=== PATIENT | female | born 1935 | race Caucasian/White ===

== ENCOUNTER → 2021-02-01 10:33 | Outpatient (BNVA) | payer MEDICARE, OTHER, SELFPAY | PROVIDERS: PCP Internal Medicine; Referring Provider Internal Medicine; Visit Provider Internal Medicine Cardiovascular Disease | DX: G45.9 Transient cerebral ischemic attack, unspecified (principal); I10 Essential (primary) hypertension; Z79.899 Other long term (current) drug therapy | CPT/HCPCS: 99202 ==

== ENCOUNTER 2021-02-07 10:31 | Outpatient (REF) | payer MEDICARE, OTHER, SELFPAY ==
--- NOTE | ~2021-02-07 | FL_ITS ---
EXAMINATION: FL BARIUM SWALLOW CLINICAL INFORMATION: Dysphagia. COMPARISON: None TECHNIQUE: Barium swallow examination is performed using fluoroscopic evaluation in addition to multiple fluoroscopic spot views. The patient is imaged both upright and prone and using both thick and thin sulfate along with effervescent granules. Fluoroscopy time: 1.5 minutes DAP: 5.394 Gycm2 Images: 39 FINDINGS: Following oral administration of thin barium and barium-coated turkey, there is slow propagation of bolus from the oral cavity through the pharynx into the upper esophagus. There is more slower progress of bolus into the mid and distal esophagus. There is extensive tertiary peristalsis seen in the mid and distal esophagus suggestive of presbyesophagus. No intraluminal filling defects seen. The GE junction is patent. 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 No intraluminal filling defect or narrowing seen. The GE junction is widely patent.
== END 2021-02-07 10:32 | disposition home or self-care (01) ==
LOC: HO.XRAY 10:31
PROVIDERS: PCP Internal Medicine; Visit Provider Otolaryngology
DX: R13.10 Dysphagia, unspecified (principal)
CPT/HCPCS: 74220

== ENCOUNTER 2021-03-04 10:20 | Inpatient (IN) | payer MEDICARE, OTHER, SELFPAY ==
[2021-03-04] VITALS (8 sets, daily range): BP systolic 137–190; BP diastolic 48–84; PULSE 62–80; RESP 16–20; TEMP 36.3–36.9; O2SAT 96–100; BMI 21.3
--- NOTE | ~2021-03-04 | CT_ITS ---
EXAMINATION: CT HEAD WITHOUT CONTRAST CT CERVICAL SPINE WITHOUT CONTRAST CLINICAL INFORMATION: Fall COMPARISON: None TECHNIQUE: A noncontrast CT of the head and a noncontrast CT of the cervical spine with sagittal and coronal reformats. This CT examination was performed using dose optimization techniques as appropriate, variously including the following: *Automated exposure control *Adjustment of mA and/or kV according to patient size (this includes techniques or standardized protocols for targeted exams where dose is matched to indication/reason for exam; i.e. extremities or head) *Use of iterative reconstruction technique DLP: 998 FINDINGS: No intra-axial or extra-axial hemorrhage. No acute territorial infarct. Chronic small vessel ischemic disease of the periventricular white matter with mild generalized atrophy. Preservation of kam-white matter differentiation. No mass, mass effect, or midline shift. No fracture. Hyperostosis frontalis interna. Trace layering fluid in the maxillary sinuses. The mastoid air cells and visualized paranasal sinuses are otherwise clear. Normal alignment of the cervical spine. No fracture. No prevertebral soft tissue swelling. Mild multilevel degenerative disc disease which is most prominent at C5-C6. Posterior endplate osteophytes and mild ossification of the posterior longitudinal ligament at C5-C6 and C6-C7. Marked facet arthropathy on the left at C3-C4 and C4-C5. CT/CT cervical spine wo con IMPRESSION: No acute intracranial abnormality. No cervical spine fracture or traumatic subluxation.
--- NOTE | ~2021-03-04 | XR_ITS ---
EXAMINATION: XR CHEST CLINICAL INFORMATION: Shortness of breath COMPARISON: 10/09/2018 TECHNIQUE: Frontal view of the chest was obtained. FINDINGS: Ill-defined patchy parenchymal opacities in the upper lobes and right lower lobe which are new findings and may represent developing multifocal pneumonia. No pleural effusion or pulmonary edema. Stable cardiomediastinal silhouette with extensive atherosclerotic calcifications of the thoracic aorta. XR/XR chest 1V IMPRESSION: There are a few small ill-defined patchy parenchymal opacities which may represent developing multifocal pneumonia. Short-term follow-up PA and lateral chest radiographs are recommended to ensure resolution.
--- NOTE | ~2021-03-04 | CT_ITS ---
EXAMINATION: CT HEAD WITHOUT CONTRAST CT CERVICAL SPINE WITHOUT CONTRAST CLINICAL INFORMATION: Fall COMPARISON: None TECHNIQUE: A noncontrast CT of the head and a noncontrast CT of the cervical spine with sagittal and coronal reformats. This CT examination was performed using dose optimization techniques as appropriate, variously including the following: *Automated exposure control *Adjustment of mA and/or kV according to patient size (this includes techniques or standardized protocols for targeted exams where dose is matched to indication/reason for exam; i.e. extremities or head) *Use of iterative reconstruction technique DLP: 998 FINDINGS: No intra-axial or extra-axial hemorrhage. No acute territorial infarct. Chronic small vessel ischemic disease of the periventricular white matter with mild generalized atrophy. Preservation of kam-white matter differentiation. No mass, mass effect, or midline shift. No fracture. Hyperostosis frontalis interna. Trace layering fluid in the maxillary sinuses. The mastoid air cells and visualized paranasal sinuses are otherwise clear. Normal alignment of the cervical spine. No fracture. No prevertebral soft tissue swelling. Mild multilevel degenerative disc disease which is most prominent at C5-C6. Posterior endplate osteophytes and mild ossification of the posterior longitudinal ligament at C5-C6 and C6-C7. Marked facet arthropathy on the left at C3-C4 and C4-C5. CT/CT head/brain wo con IMPRESSION: No acute intracranial abnormality. No cervical spine fracture or traumatic subluxation.
--- NOTE | 2021-03-04 10:36 | ECG_ITS ---
Test Reason : FALL Blood Pressure : / mmHG Vent. Rate : 077 BPM Atrial Rate : 077 BPM P-R Int : 140 ms QRS Dur : 088 ms QT Int : 420 ms P-R-T Axes : 046 015 033 degrees QTc Int : 475 ms Normal sinus rhythm Normal ECG When compared with ECG of 09-JAN-2007 08:19, No significant change was found Referred By: Nati Ramos Electronically Signed By:Jaime Rangel
--- NOTE | 2021-03-04 10:40 | ED_ITS ---
HPI - Fall General Chief Complaint: Fall Stated Complaint: fall Time Seen by Provider: 03/04/21 10:36 History of Present Illness HPI Narrative: Patient is an 85-year-old female presents today with having fallen. Unsure as to the exact nature patient's fall. She does have a history of TIAs in the past. History of dementia. Patient is currently on Plavix. The fall was unwitnessed. Patient is found on the ground. No chest pain or shortness of breath. No diaphoresis. Patient is from home. No cough no congestion or upper respiratory symptoms. Patient unsure what exactly happened. She lives in assisted living environment. Related Data Home Medications Medication Instructions Recorded Confirmed acetaminophen 500 mg tablet 500 mg PO Q6H PRN 01/05/21 02/01/21 atorvastatin 40 mg tablet 40 mg PO DAILY 01/05/21 02/01/21 felodipine 5 mg tablet,extended 5 mg PO DAILY 01/05/21 02/01/21 release 24 hr irbesartan 300 mg tablet 300 mg PO DAILY 01/05/21 02/01/21 ascorbate calcium (vitamin C) 500 500 mg PO DAILY 02/01/21 02/01/21 mg tablet docusate sodium 100 mg capsule 100 mg PO DAILY 02/01/21 02/01/21 vitamins A,C,D-umtt-zfrdqa 14,320 1 cap PO BID 02/01/21 02/01/21 unit-226 mg-200 unit capsule Previous Rx's Medication Instructions Recorded clopidogrel 75 mg tablet 75 mg PO DAILY #90 tab 01/20/21 hydralazine 10 mg tablet 10 mg PO BID #60 tab 02/23/21 Allergies Allergy/AdvReac Type Severity Reaction Status Date / Time aspirin Allergy Severe angioedema Verified 01/05/21 11:24 Review of Systems Review of Systems: Constitutional: No Weight loss, No Fever, No Chills, No Night Sweats, No Fatigue, No Malaise ENT/Mouth: No Hearing loss, No Ear Pain, No Nasal Congestion, No Sinus Pain, No Hoarseness, No sore throat, No Rhinorrhea, No Swallowing Difficulty Eyes: No Eye Pain, No Swelling, No Redness, No Foreign Body, No Discharge, No Vision Changes Cardiovascular: No Chest Pain, No SOB, No Dyspnea on Exertion, No Orthopnea, No Edema, No Palpitations Respiratory: No Cough, No Sputum, No Wheezing, No Smoke Exposure, No Dyspnea Gastrointestinal: No Nausea, No Vomiting, No Diarrhea, No Constipation, No abdominal Pain, No Hematochezia, No Melena Genitourinary: no irregular bleeding, No Dysuria, No Urinary Frequency, No He maturia, No Urinary Incontinence, No Urgency, No Flank Pain, No Urinary Flow Changes, No Hesitancy Musculoskeletal: No joint pain, No Myalgias, No Joint Swelling Skin: No Skin Lesions, No rash Neuro: No Weakness, No Numbness, No Paresthesias, No Loss of Consciousness, No Dizziness, No Headache Psych: No Anxiety/Panic, No Depression, No SI/HI/AH/VH, No Social Issues, Heme/Lymph: No Bruising, No Bleeding,No Lymphadenopathy Endocrine: No Polyuria, No Polydipsia, No Temperature Intolerance [facility] Past Medical History Medical History Benign essential hypertension Difficulty walking Dysphagia Impaired fasting glucose Overweight (BMI 25.0-29.9) Pure hypercholesterolemia TIA (transient ischemic attack) Tremor Surgical History History of right-sided carotid endarterectomy Family History Family History Father No problems noted. Mother HTN (hypertension) Social History Social History Alcohol intake: never Patient Tobacco Use Status: Never used Tobacco Use of substances other than those prescribed or required for medical reasons: No Advance Directives: No Advance Directives Information Provided: Yes Physical Exam Vital Signs: Vital Signs: Last Vital Signs Temp 97.6 F 03/04/21 13:05 Pulse 72 03/04/21 13:30 Resp 20 03/04/21 13:30 BP 179/80 H 03/04/21 13:30 Pulse Ox 96 03/04/21 13:30 Body Mass Index 21.3 Appearance: Alert. Oriented X self and place.. No acute distress. Eyes: Pupils equal, round and reactive to light. ENT: Pharynx normal. Neck: Normal inspection. No C-spine tenderness elicited. C-spine immobilized s econdary to potential head injury. No lymph nodes noted. No crepitus CVS: Normal heart rate and rhythm. Pulses normal. Normal S1 and S2 Respiratory: No respiratory distress. Breath sounds normal. No Wheezing. No rales Abdomen: Soft and nontender. No rigidity. No distention. good BS x4 Skin: Skin warm and dry. Normal skin color. Normal skin turgor. Extremities: No lower extremity edema. Neurovascular intact to all extremities. No Lacerations. No Rash Neuro: Oriented X 3. No motor deficit. No sensory deficit. Moving all extermities. No slurred speech MDM - Fall MDM Narrative Medical decision making narrative: Patient fair appearing unable to give detailed history as to what happen. Found on the ground. Question was on the ground for about an hour. Patient is oriented to self only. CT scan of the head and C-spine were both grossly negative for any acute evidence of fracture or bleeding. Patient has a history of being on Plavix. In addition patient's EKG showed a sinus pattern heart rate was 80 FL QRS QT within normal limits there is no acute ST segment elevation. However patient's cardiac enzymes came back surprisingly elevated at over 2000. Consistent with a myocardial infarction. Patient is unable to give detailed history. Attempted to contact family. Patient's CK is 1500 no overt rhabdo mild lysis. Will admit patient for further evaluation. Patient's case discussed with Dr. Rangel from Cardiology. Patient will be admitted here. Attempted to contact family. Still waiting phone call back. Patient is in stable condition awaiting admission. Medical Records Attestation: I reviewed the patient's medical records. Lab Data Attestation: I reviewed the patient's lab results. Result diagrams: 03/04/21 12:15 03/04/21 12:16 Labs: Lab Results 03/04/21 03/04/21 03/04/21 Range/Units 12:15 12:15 12:16 WBC 12.5 H (4.8-10.8) X10*3/uL RBC 4.10 L (4.20-5.50) X10*6/uL Hgb 12.7 (12.0-16.0) g/dl Hct 39.4 (37-47) % MCV 96.1 (80-98) fL MCH 31.0 (27.0-33.0) pg MCHC 32.2 (31.0-35.0) g/dl RDW 14.9 (11.0-16.0) % Plt Count 202 (160-400) X10*3/uL MPV 10.8 (9.4-12.3) fL Immature Gran % (Auto) 0.3 (0.0-0.4) % Neut % (Auto) 79.9 H (45-73) % Lymph % (Auto) 9.1 L (20-40) % [place] % (Auto) 10.6 (2-11) % Eos % (Auto) 0.0 (0-4) % Baso % (Auto) 0.1 (0-2) % Lymph # (Auto) 1.1 L (1.2-4.9) X10*3/uL [place] # (Auto) 1.3 H (0.1-1.2) X10*3/uL Eos # (Auto) 0.0 (0.0-0.4) X10*3/uL Baso # (Auto) 0.0 (0.0-0.2) X10*3/uL Abs Immat Gran (auto) 0.04 H (0.00-0.03) X10*3/uL Absolute Neuts (auto) 10.0 H (2.0-8.3) X10*3/uL Absolute Nucleated RBC 0.000 (0.0-0.012) X10*3/uL Nucleated RBC % (auto) 0.0 (0.0-0.2) /100WBC PT 12.4 (10.8-13.0) SEC INR 1.0 (0.9-1.1) Sodium (135-145) mmol/L Potassium (3.3-5.1) mmol/L Chloride (96-108) mmol/L Carbon Dioxide (22-29) mmol/L Anion Gap (12-20) BUN (9-16) mg/dL Creatinine (0.5-1.4) mg/dL Estim Creat Clear Calc Estimated GFR Random Glucose (60-115) mg/dL Calcium (8.4-10.2) mg/dL Total Bilirubin (0.0-1.0) mg/dL Direct Bilirubin (0.0-0.5) mg/dL AST (5-31) U/L ALT (0-31) U/L Alkaline Phosphatase (39-117) U/L Total Creatine Kinase 1654 H (26-140) U/L Troponin I High Sens (<3.5-17.0) ng/L Total Protein (6.5-8.0) g/dL Albumin (3.5-5.0) g/dL 03/04/21 03/04/21 Range/Units 12:16 12:16 WBC (4.8-10.8) X10*3/uL RBC (4.20-5.50) X10*6/uL Hgb (12.0-16.0) g/dl Hct (37-47) % MCV (80-98) fL MCH (27.0-33.0) pg MCHC (31.0-35.0) g/dl RDW (11.0-16.0) % Plt Count (160-400) X10*3/uL MPV (9.4-12.3) fL Immature Gran % (Auto) (0.0-0.4) % Neut % (Auto) (45-73) % Lymph % (Auto) (20-40) % [place] % (Auto) (2-11) % Eos % (Auto) (0-4) % Baso % (Auto) (0-2) % Lymph # (Auto) (1.2-4.9) X10*3/uL [place] # (Auto) (0.1-1.2) X10*3/uL Eos # (Auto) (0.0-0.4) X10*3/uL Baso # (Auto) (0.0-0.2) X10*3/uL Abs Immat Gran (auto) (0.00-0.03) X10*3/uL Absolute Neuts (auto) (2.0-8.3) X10*3/uL Absolute Nucleated RBC (0.0-0.012) X10*3/uL Nucleated RBC % (auto) (0.0-0.2) /100WBC PT (10.8-13.0) SEC INR (0.9-1.1) Sodium 145 (135-145) mmol/L Potassium 3.5 (3.3-5.1) mmol/L Chloride 108 (96-108) mmol/L Carbon Dioxide 23 (22-29) mmol/L Anion Gap 18 (12-20) BUN 18 H (9-16) mg/dL Creatinine 0.67 (0.5-1.4) mg/dL Estim Creat Clear Calc 59.7 Estimated GFR > 60 Random Glucose 94 (60-115) mg/dL Calcium 9.7 (8.4-10.2) mg/dL Total Bilirubin 1.1 H (0.0-1.0) mg/dL Direct Bilirubin 0.4 (0.0-0.5) mg/dL AST 41 H (5-31) U/L ALT 24 (0-31) U/L Alkaline Phosphatase 100 (39-117) U/L Total Creatine Kinase (26-140) U/L Troponin I High Sens 2768.8 H* (<3.5-17.0) ng/L Total Protein 6.6 (6.5-8.0) g/dL Albumin 4.1 (3.5-5.0) g/dL ECG Data Interpretation: Sinus heart rate is 80 FL cares QT within normal limits is no acute ST Segment elevation. A 2nd EKG was done at 01:30 it showed Sinus heart rate is 80 FL QRS QT within normal limits is no acute ST segment elevation there was no changes from earlier EKG. Critical Care Time Critical Care Time Critical Care Time: Yes Total Critical Care Time: 40 Attestation: Enter critical I have personally provided 40 minutes of critical care time exclusive of time spent on separately billable procedures. Time includes review of lab data, radiology results, discussion with consultants, and monitoring for potential decompensation. Interventions were performed as documented above Discharge Plan Discharge Clinical Impression: Fall, Cardiac enzymes elevated Prescriptions: No Action clopidogrel 75 mg tablet 75 mg PO DAILY Qty: 90 RF: 0 hydralazine 10 mg tablet 10 mg PO BID Qty: 60 RF: 0 felodipine 5 mg tablet extended release 24 hr 5 mg PO DAILY RF: 0 irbesartan 300 mg tablet 300 mg PO DAILY RF: 0 atorvastatin 40 mg tablet 40 mg PO DAILY RF: 0 acetaminophen [Tylenol Extra Strength] 500 mg tablet 500 mg PO Q6H PRNRF: 0 docusate sodium [Colace] 100 mg capsule 100 mg PO DAILY RF: 0 ascorbate calcium (vitamin C) 500 mg tablet 500 mg PO DAILY RF: 0 PreserVision AREDS 14,320-226-200 [id number] capsule 1 cap PO BID RF: 0
--- NOTE | 2021-03-04 11:33 | PC.NURSE ---
kusum (geriatric admitting manager) at [facility] is at the bedside and she updated.kusum states that pt was found by an prism measurer between her bed and her bureau. no urine was found on floor but found half dressed.
--- NOTE | 2021-03-04 11:42 | PC.NURSE ---
pt's daughter brice ([phone]) called [facility] and was updated on pt's status. brice states that pt had rupture dis repair about 15-20yrs ago,. aware.
[2021-03-04 12:22] LABS: MANUAL DIFF FLAG NO
[2021-03-04 12:28] LABS: Basophils Percent Auto 0.1 % (0-2); Hematocrit 39.4 % (37-47); Hemoglobin 12.7 g/dl (12.0-16.0); Imm Gran Abs Auto 0.04 X10*3/uL (0.00-0.03); Imm Gran Pct Auto 0.3 % (0.0-0.4); Lymphocytes Absolute Auto 1.1 X10*3/uL (1.2-4.9); Lymphocytes Percent Auto 9.1 % (20-40); Mean Corpuscular HGB Conc 32.2 g/dl (31.0-35.0); Mean Corpuscular Volume 96.1 fL (80-98); Mean Platelet Volume 10.8 fL (9.4-12.3); Monocytes Absolute Auto 1.3 X10*3/uL (0.1-1.2); Monocytes Percent Auto 10.6 % (2-11); Neutrophils Percent Auto 79.9 % (45-73); Platelet Count 202 X10*3/uL (160-400); Red Cell Distribution Width 14.9 % (11.0-16.0); White Blood Count 12.5 X10*3/uL (4.8-10.8)
[2021-03-04 12:31] LABS: Prothrombin Time 12.4 SEC (10.8-13.0)
[2021-03-04 12:48] LABS: Alanine Aminotransferase 24 U/L (0-31); Albumin Level 4.1 g/dL (3.5-5.0); Alkaline Phosphatase 100 U/L (39-117); Aspartate Amino Transferase 41 U/L (5-31); Bilirubin Direct 0.4 mg/dL (0.0-0.5); Bilirubin Total 1.1 mg/dL (0.0-1.0); Total Protein 6.6 g/dL (6.5-8.0)
--- NOTE | 2021-03-04 13:17 | ECG_ITS ---
Test Reason : CHEST DISCOMFORT Blood Pressure : / mmHG Vent. Rate : 079 BPM Atrial Rate : 079 BPM P-R Int : 136 ms QRS Dur : 096 ms QT Int : 414 ms P-R-T Axes : 044 -06 029 degrees QTc Int : 474 ms Normal sinus rhythm Normal ECG When compared with ECG of 04-MAR-2021 11:57, No significant change was found Referred By: Nati Ramos Electronically Signed By:Jaime Rangel
--- NOTE | 2021-03-04 13:23 | PC.NURSE ---
PHYSICAL THERAPY ON HOLD AT THIS TIME DUE TO PT INCREASE IN LAB WORK (TROP-I)
[2021-03-04] MEDS: Aspirin 81 MG TAB.CHEW 324 MG PO (13:31)
--- NOTE | 2021-03-04 13:33 | PC.NURSE ---
pt's daughter brice lives in [place], [place]. [facility] kusum carr ([facility]) care management/consultaant ([phone]) or email her at . dr. gamez updated pt's daughter brice via phone.
[2021-03-04 13:37] LABS: Anion Gap 18 (12-20); Blood Urea Nitrogen 18 mg/dL (9-16); Calcium 9.7 mg/dL (8.4-10.2); Carbon Dioxide 23 mmol/L (22-29); Chloride 108 mmol/L (96-108); Creatinine Clr Calc Pharmacy 59.7; Estimated Glomerular Filt Rate > 60; Glucose Random 94 mg/dL (60-115); Potassium 3.5 mmol/L (3.3-5.1); Sodium 145 mmol/L (135-145)
--- NOTE | 2021-03-04 13:45 | PC.NURSE ---
pt/family/providence director of casework aware of plan of care for admission to hosp.
--- NOTE | 2021-03-04 13:56 | PC.NURSE ---
pt denies any chest pain
--- NOTE | 2021-03-04 14:00 | PC.NURSE ---
all of the pt's personal jewellery were removed and taken home by kusum carr (formerly [facility], case management.)
--- NOTE | 2021-03-04 14:02 | PC.NURSE ---
pt has an earring aid to r ear, c-collar was d/c'd earlier by . pt has no other jewellry on her person
--- NOTE | 2021-03-04 14:09 | CA_ITS ---
Transthoracic Echocardiogram Patient (Last, First, Middle): Amanda Tao Priscilla Gender: Female Date of : 1935 Age: 85 Procedure Date: 03/04/2021 Procedure Type: Transthoracic Echocardiogram Location: ER Height: 170.18 cm Weight: 61.69 kg BSA: 1.72 m2 Heart Rate: bpm BP: 157 / 64 mmHg Supervisor Plate Pasting: SHAMEKA Referring MD: Nati Ramos MD Symptoms: CHEST PAIN Study Quality: Fair/contrast Conclusions: - Normal left ventricular size and systolic function. - E/E prime ratio is between 8 and 15 consistent with indeterminate filling pressures. - Normal right ventricular cavity size and systolic function. Findings Procedure Information Contrast agent, definity, is being given per protocol without apparent complications. Left Ventricle Normal left ventricular size and systolic function. There is mildly increased left ventricular wall thickness. The visually estimated ejection fraction is between 60-65%. There is no evidence of regional wall motion abnormalities. Abnormal diastolic function is noted. Spectral Doppler is indicative of an impaired relaxation filling pattern. E/E prime ratio is between 8 and 15 consistent with indeterminate filling pressures. Right Ventricle Normal right ventricular cavity size and systolic function. Atria Both atria are normal in size. Aortic Valve There is a normal trileaflet aortic valve. There is mild calcification of the aortic valve. There is mild thickening of the aortic valve. There is no aortic valve stenosis. There is no aortic valve regurgitation. Mitral Valve There is mild mitral annular calcification. There is trace mitral valve regurgitation. There is no mitral valve stenosis. Pulmonic Valve The pulmonic valve is likely normal. Tricuspid Valve Normal tricuspid valve structure and function. There is trace tricuspid valve regurgitation. Normal right atrial pressure. There is no evidence of pulmonary hypertension. Great Vessels All visible segments of the aorta are normal in size. The visualized portions of the pulmonary artery and branches are normal. Venous The inferior vena cava is normal in size and collapses greater than 50% with inspiration. Pericardium/Pleural There is no evidence of pericardial effusion. Prior Study Comparison No prior study available for comparison. Measurements 2D Linear Measurements IVSd: 1.05 0.6-0.9/0.6-1.0 cm LVIDd: 3.95 3.9-5.3/4.2-5.9 cm LVIDd Index: 2.30 2.4-3.2/2.2-3.1 cm/m2 LVIDs: 2.65 2.0-3.6 cm LVPWd: 1.04 0.7-1.1 cm Ao Root: 3.00 2.1-3.5 cm LA Diam: 3.60 2.7-3.8/3.0-4.0 cm LAIDs Index: 2.09 1.5-2.3 cm/m2 LV Mass: 165.07 67-162/88-224 g LV Mass Index: 95.97 43-95/49-115 g/m2 LVOT Diam: 2.00 3.0+(-)1.3 cm Mitral Valve MV Pk E: 0.72 MV PK A: 1.15 MV Decel Time: 260.00 E/A: 0.60 E'Lateral: 6.31 E'Medial: 4.46 E/E' Med: 16.20 E/E' Lat: 11.40 PHT: 76.00 MVA PHT: 2.89 Decel Coffey: 2.78 Aortic Valve AoV Pk Matthew: 1.33 AoV Mn Matthew: 0.95 AoV VTI: 0.31 AoV Pk Grad: 7.00 Aov Mn Grad: 4.00 SAM Cont.VTI: 2.55 LVOT LVOT Pk Matthew: 0.95 LVOT Mn Matthew: 0.65 LVOT VTI: 0.25 LVOT Pk Grad: 4.00 LVOT Mn Grad: 2.00 LVOT Diam: 2.00 LVOT Area: 3.14 Diastolic Function MV Pk E: 0.72 MV Pk A: 1.15 E/A: 0.60 E'Medial: 4.46 E/E' Med: 16.20 E' Laterial: 6.31 E/E' Lat: 11.40 Tricuspid Valve TR Pk Matthew: 2.10 TR Pk Grad: 18.00 RA Press: 3.00 RVSP: 21.00 Great Vessels Aorta Ao Root-2D: 3.00 2.0-3.7 cm Ao Asc: 3.10 2.1-3.4 cm Ao Arch: 2.60 Updated in Other Vendor System with Status of Final Jaime Rangel MD electronically signed on 03/04/2021 9:46:13 PM with status of Final
--- NOTE | 2021-03-04 14:26 | MHC.CM.ED ---
Received case management consult from Dr Ramos. Patient came to the ER due to a fall. Patient was recently at [facility]. Referral made via [employer]. Received notification that patient is having cardiac issues and will be admitted. Continue to monitor for d/c needs.
[2021-03-04 14:31] LABS: Influenza A PCR NEGATIVE (Negative); Influenza B PCR NEGATIVE (Negative); Resp Syncy Virus RNA Qual PCR NEGATIVE (Negative); SARS COV2 PCR INHOUSE NEGATIVE (Negative)
--- NOTE | 2021-03-04 17:55 | P.HPHOSP_ITS ---
History of Present Illness Date of Service: 03/04/21 Chief Complaint: Fall, lethargy An 80 years old lady with PMH of HTN, HLD, carotid artery stenosis who presented to the hospital after sustaining a fall at home. The patient was so sleepy and difficult to arouse but she was able to tell me that she fell out of the bed with light feeling of lightheadedness. She denies any syncope or loss of conscious or hitting her head. Denies any headache, visual changes, chest pain, shortness of breath, fever or chills. In the emergency the patient was found to have significantly elevated troponin above 2000 the 1st reading that went down to 1800 and repeat with normal EKG reading. And no complain of chest pain. Found to have elevated CPK as well as a result of the fall and being on the floor for duration of time that is not clear. Admitted further evaluation and treatment. Review of Systems Review of Systems: No fever, chills but feels overall weakness and sleepiness No chest pain, palpitation No shortness of breath or coughing No abdominal pain, nausea or vomiting but complaining of back pain after the fall No urinary symptoms No any rash or wounds [facility] Medical History Benign essential hypertension Difficulty walking Dysphagia Impaired fasting glucose Overweight (BMI 25.0-29.9) Pure hypercholesterolemia TIA (transient ischemic attack) Tremor Family History Father No problems noted. Mother HTN (hypertension) Surgical History History of right-sided carotid endarterectomy Social History Alcohol intake: never Patient Tobacco Use Status: Never used Tobacco Use of substances other than those prescribed or required for medical reasons: No Advance Directives: No Advance Directives Information Provided: Yes Meds Allergies Allergy/AdvReac Type Severity Reaction Status Date / Time aspirin Allergy Severe angioedema Verified 01/05/21 11:24 Active Medications: Current Medications Generic Name Dose Route Start Last Admin Trade Name Freq PRN Reason Stop Dose Admin Pharmacy Consult 1 each 03/04/21 13:20 Consult Rx Perform Med Rec MISCELLANE ONCE PRN Consult order Home Medications Medication Instructions Recorded Confirmed Last Taken Type acetaminophen 500 mg tablet 500 mg PO BID 01/05/21 03/04/21 Unknown History atorvastatin 40 mg tablet 40 mg PO BEDTIME 01/05/21 03/04/21 Unknown History felodipine 5 mg tablet,extended 5 mg PO DAILY 01/05/21 03/04/21 Unknown History release 24 hr irbesartan 300 mg tablet 300 mg PO DAILY 01/05/21 03/04/21 Unknown History ascorbate calcium (vitamin C) 500 500 mg PO DAILY 02/01/21 03/04/21 Unknown His tory mg tablet docusate sodium 100 mg capsule 100 mg PO BID 02/01/21 03/04/21 Unknown History vitamins A,C,L-djvh-nkbbgn 14,320 1 cap PO DAILY 02/01/21 03/04/21 Unknown History unit-226 mg-200 unit capsule Physical Exam Vital Signs and Narrative: Vital Signs: Last Vital Signs Temp 98 F 03/04/21 16:00 Pulse 64 03/04/21 16:00 Resp 20 03/04/21 16:00 BP 138/48 L 03/04/21 16:00 Pulse Ox 96 03/04/21 16:00 Body Mass Index 21.3 Const: Other: Constitutional : Alert with stimulation, oriented to self and place, very sleepy and difficult to arouse but she wakes up with physical stimuli Neck : Normal inspection, Supple Cardiovascular : RRR, S1 S2, no lower extremity edema Respiratory : Fair bilateral air entry, no crackles, wheezes or rhonchi Gastrointestinal: soft, lax, Normal bowel sounds, Non tender Skin : Warm/Dry, No wounds noticed Neurological : Alert & oriented to self and place, No focal deficit Results Labs CBC and Chem 7: 03/04/21 12:15 03/04/21 12:16 Labs: Laboratory Results - last 24 hr 03/04/21 03/04/21 03/04/21 12:15 12:15 12:16 MCV 96.1 MCH 31.0 MCHC 32.2 RDW 14.9 Plt Count 202 MPV 10.8 Immature Gran % (Auto) 0.3 Neut % (Auto) 79.9 H Lymph % (Auto) 9.1 L [place] % (Auto) 10.6 Eos % (Auto) 0.0 Baso % (Auto) 0.1 Lymph # (Auto) 1.1 L [place] # (Auto) 1.3 H Eos # (Auto) 0.0 Baso # (Auto) 0.0 Abs Immat Gran (auto) 0.04 H Absolute Neuts (auto) 10.0 H Absolute Nucleated RBC 0.000 Nucleated RBC % (auto) 0.0 PT 12.4 INR 1.0 Anion Gap Estim Creat Clear Calc Estimated GFR Random Glucose Calcium Total Bilirubin Direct Bilirubin AST ALT Alkaline Phosphatase Total Creatine Kinase 1654 H Troponin I High Sens Total Protein Albumin Coronavirus (PCR) Influenza Type A (PCR) Influenza Type B (PCR) RSV RNA Qual (PCR) 03/04/21 03/04/21 03/04/21 12:16 12:16 13:37 MCV MCH MCHC RDW Plt Count MPV Immature Gran % (Auto) Neut % (Auto) Lymph % (Auto) [place] % (Auto) Eos % (Auto) Baso % (Auto) Lymph # (Auto) [place] # (Auto) Eos # (Auto) Baso # (Auto) Abs Immat Gran (auto) Absolute Neuts (auto) Absolute Nucleated RBC Nucleated RBC % (auto) PT INR Anion Gap 18 Estim Creat Clear Calc 59.7 Estimated GFR > 60 Random Glucose 94 Calcium 9.7 Total Bilirubin 1.1 H Direct Bilirubin 0.4 AST 41 H ALT 24 Alkaline Phosphatase 100 Total Creatine Kinase Troponin I High Sens 2768.8 H* Total Protein 6.6 Albumin 4.1 Coronavirus (PCR) NEGATIVE Influenza Type A (PCR) NEGATIVE Influenza Type B (PCR) NEGATIVE RSV RNA Qual (PCR) NEGATIVE 03/04/21 03/04/21 15:39 15:39 MCV MCH MCHC RDW Plt Count MPV Immature Gran % (Auto) Neut % (Auto) Lymph % (Auto) [place] % (Auto) Eos % (Auto) Baso % (Auto) Lymph # (Auto) [place] # (Auto) Eos # (Auto) Baso # (Auto) Abs Immat Gran (auto) Absolute Neuts (auto) Absolute Nucleated RBC Nucleated RBC % (auto) PT INR Anion Gap Estim Creat Clear Calc Estimated GFR Random Glucose Calcium Total Bilirubin Direct Bilirubin AST ALT Alkaline Phosphatase Total Creatine Kinase 1390 H Troponin I High Sens 1836.0 H* Total Protein Albumin Coronavirus (PCR) Influenza Type A (PCR) Influenza Type B (PCR) RSV RNA Qual (PCR) Imaging Radiologist's Impressions: Impressions Cervical Spine CT 03/04/21 10:36 IMPRESSION: No acute intracranial abnormality. No cervical spine fracture or traumatic subluxation. Chest X-Ray 03/04/21 10:36 IMPRESSION: There are a few small ill-defined patchy parenchymal opacities which may represent developing multifocal pneumonia. Short-term follow-up PA and lateral chest radiographs are recommended to ensure resolution. Head CT 03/04/21 10:36 IMPRESSION: No acute intracranial abnormality. No cervical spine fracture or traumatic subluxation. Assessment and Plan (1) Fall: Status: Acute (2) Cardiac enzymes elevated: Status: Acute (3) Elevated CPK: Status: Acute (4) Physical deconditioning: Status: Acute An 80 years old lady with PMH of HTN, HLD, carotid artery stenosis who presented to the hospital after sustaining a fall at home. Mechanical fall Secondary to physical deconditioning To do orthostatic vitals To do physical therapy Elevated CPK Secondary to fall and muscle injury Start gentle hydration to avoid kidney injury Monitor BMP Elevated cardiac enzymes EKG within normal, no ST or T-wave changes, no complaint of chest pain Troponin trended down with repeat Given telemetry Repeat EKG in the morning Get cardiology evaluation History TIA continue statin, clopidogrel Hypertension Continue hydralazine, irbesartan and felodipine DVT PPX Xarelto
[2021-03-04] MEDS: Docusate Sodium 100 MG CAPSULE PO (21:46)
[2021-03-04] MEDS: Atorvastatin Calcium 40 MG TABLET PO (21:46)
[2021-03-04] MEDS: hydrALAZINE HCl 10 MG TABLET PO (21:46)
[2021-03-04] MEDS: 0.9 % Sodium Chloride 1,000 ML 100 ML IVCONT (21:47)
--- NOTE | 2021-03-04 22:04 | P.CONCA_ITS ---
History of Present Illness History of Present Illness Date of Service: 03/04/21 Requesting physician: Nati Ramos Chief complaint: Elevated troponin Narrative: 85-year-old female with h/o dementia, TIA, HTN and HLD presenting with fall. Patient is quite sleepy and did not answer questions at the time of interview. As per chart review she was found on the floor and brought in. She has elevated troponin levels without any significant ECG changes. History from her is quite limited. She also has elevated CPK levels. She has elevated blood pressures. [facility] Past Medical History Medical History Benign essential hypertension Difficulty walking Dysphagia Impaired fasting glucose Overweight (BMI 25.0-29.9) Pure hypercholesterolemia TIA (transient ischemic attack) Tremor Family History Family History Father No problems noted. Mother HTN (hypertension) Surgical History Surgical History History of right-sided carotid endarterectomy Social History Social History Alcohol intake: never Patient Tobacco Use Status: Never used Tobacco Use of substances other than those prescribed or required for medical reasons: No Advance Directives: No Advance Directives Information Provided: Yes Meds Allergies Allergy/AdvReac Type Severity Reaction Status Date / Time aspirin Allergy Severe angioedema Verified 01/05/21 11:24 Active Medications: Current Medications Generic Name Dose Route Start Last Admin Trade Name Malcolm PRN Reason Stop Dose Admin Acetaminophen 650 mg 03/04/21 19:39 Acetaminophen 325 Mg Tablet PO Q6H PRN Pain, Mild (Pain Scale 1-3) Ascorbic Acid 500 mg 03/05/21 09:00 Ascorbic Acid 500 Mg Tablet PO DAILY MICHELLE Atorvastatin Calcium 40 mg 03/04/21 21:00 03/04/21 21:46 Atorvastatin Calcium 40 Mg Tablet PO 40 mg BEDTIME MICHELLE Administration Clopidogrel Bisulfate 75 mg 03/05/21 09:00 Clopidogrel Bisulfate 75 Mg Tablet PO DAILY MICHELLE Docusate Sodium 100 mg 03/04/21 21:00 03/04/21 21:46 Docusate Sodium 100 Mg Capsule PO 100 mg BID MICHELLE Administration Hydralazine HCl 10 mg 03/04/21 21:00 03/04/21 21:46 Hydralazine Hcl 10 Mg Tablet PO 10 mg BID [facility] Administration Protocol Sodium Chloride 1,000 mls @ 100 mls/hr 03/04/21 19:39 03/04/21 21:47 Ns IVCONT 100 mls/hr .Q10H [facility] Administration Ondansetron HCl 4 mg 03/04/21 19:39 Ondansetron Hcl 4 Mg/2 Ml Vial IVPUSH Q8H PRN Nausea and Vomiting Pharmacy Consult 1 each 03/04/21 13:20 Consult Rx Perform Med Rec MISCELLANE ONCE PRN Consult order Rivaroxaban 10 mg 03/05/21 09:00 Rivaroxaban 10 Mg Tablet PO DAILY [facility] Sodium Chloride 3 ml 03/05/21 00:00 0.9 % Sodium Chloride Flush 3 Ml Syringe IVFLUSH QSHIFT [facility] Valsartan 160 mg 03/05/21 09:00 Valsartan 160 Mg Tablet PO DAILY [facility] Home Medications Medication Instructions Recorded Confirmed Last Taken Type acetaminophen 500 mg tablet 500 mg PO BID 01/05/21 03/04/21 Unknown History atorvastatin 40 mg tablet 40 mg PO BEDTIME 01/05/21 03/04/21 Unknown History felodipine 5 mg tablet,extended 5 mg PO DAILY 01/05/21 03/04/21 Unknown History release 24 hr irbesartan 300 mg tablet 300 mg PO DAILY 01/05/21 03/04/21 Unknown History ascorbate calcium (vitamin C) 500 500 mg PO DAILY 02/01/21 03/04/21 Unknown History mg tablet docusate sodium 100 mg capsule 100 mg PO BID 02/01/21 03/04/21 Unknown History vitamins A,C,V-scsp-hbrqdk 14,320 1 cap PO DAILY 02/01/21 03/04/21 Unknown History unit-226 mg-200 unit capsule Physical Exam Vital Signs: Vital Signs: Last Vital Signs Temp 98.0 F 03/04/21 21:44 Pulse 66 03/04/21 21:44 Resp 18 03/04/21 21:44 BP 177/72 H 03/04/21 21:44 Pulse Ox 97 03/04/21 21:44 Body Mass Index 21.3 GENERAL APPEARANCE: Sleepy and confused. HEART: no murmurs, regular rate and rhythm. LUNGS: clear to auscultation bilaterally. ABDOMEN: soft, nontender. EXTREMITIES: no edema. PERIPHERAL PULSES: equal. Results Labs and Meds Result diagrams: 03/04/21 12:15 03/04/21 12:16 Lab results: Laboratory Results - last 24 hr 03/04/21 03/04/21 03/04/21 12:15 12:15 12:16 WBC 12.5 H RBC 4.10 L Hgb 12.7 Hct 39.4 MCV 96.1 MCH 31.0 MCHC 32.2 RDW 14.9 Plt Count 202 MPV 10.8 Immature Gran % (Auto) 0.3 Neut % (Auto) 79.9 H Lymph % (Auto) 9.1 L Calhoun % (Auto) 10.6 Eos % (Auto) 0.0 Baso % (Auto) 0.1 Lymph # (Auto) 1.1 L Calhoun # (Auto) 1.3 H Eos # (Auto) 0.0 Baso # (Auto) 0.0 Abs Immat Gran (auto) 0.04 H Absolute Neuts (auto) 10.0 H Absolute Nucleated RBC 0.000 Nucleated RBC % (auto) 0.0 PT 12.4 INR 1.0 Sodium Potassium Chloride Carbon Dioxide Anion Gap BUN Creatinine Estim Creat Clear Calc Estimated GFR Random Glucose Calcium Total Bilirubin Direct Bilirubin AST ALT Alkaline Phosphatase Total Creatine Kinase 1654 H Troponin I High Sens Total Protein Albumin Coronavirus (PCR) Influenza Type A (PCR) Influenza Type B (PCR) RSV RNA Qual (PCR) 03/04/21 03/04/21 03/04/21 12:16 12:16 13:37 WBC RBC Hgb Hct MCV MCH MCHC RDW Plt Count MPV Immature Gran % (Auto) Neut % (Auto) Lymph % (Auto) Calhoun % (Auto) Eos % (Auto) Baso % (Auto) Lymph # (Auto) Calhoun # (Auto) Eos # (Auto) Baso # (Auto) Abs Immat Gran (auto) Absolute Neuts (auto) Absolute Nucleated RBC Nucleated RBC % (auto) PT INR Sodium 145 Potassium 3.5 Chloride 108 Carbon Dioxide 23 Anion Gap 18 BUN 18 H Creatinine 0.67 Estim Creat Clear Calc 59.7 Estimated GFR > 60 Random Glucose 94 Calcium 9.7 Total Bilirubin 1.1 H Direct Bilirubin 0.4 AST 41 H ALT 24 Alkaline Phosphatase 100 Total Creatine Kinase Troponin I High Sens 2768.8 H* Total Protein 6.6 Albumin 4.1 Coronavirus (PCR) NEGATIVE Influenza Type A (PCR) NEGATIVE Influenza Type B (PCR) NEGATIVE RSV RNA Qual (PCR) NEGATIVE 03/04/21 03/04/21 15:39 15:39 WBC RBC Hgb Hct MCV MCH MCHC RDW Plt Count MPV Immature Gran % (Auto) Neut % (Auto) Lymph % (Auto) Calhoun % (Auto) Eos % (Auto) Baso % (Auto) Lymph # (Auto) Calhoun # (Auto) Eos # (Auto) Baso # (Auto) Abs Immat Gran (auto) Absolute Neuts (auto) Absolute Nucleated RBC Nucleated RBC % (auto) PT INR Sodium Potassium Chloride Carbon Dioxide Anion Gap BUN Creatinine Estim Creat Clear Calc Estimated GFR Random Glucose Calcium Total Bilirubin Direct Bilirubin AST ALT Alkaline Phosphatase Total Creatine Kinase 1390 H Troponin I High Sens 1836.0 H* Total Protein Albumin Coronavirus (PCR) Influenza Type A (PCR) Influenza Type B (PCR) RSV RNA Qual (PCR) Imaging Radiologist's impression: Impressions Cervical Spine CT 03/04/21 10:36 IMPRESSION: No acute intracranial abnormality. No cervical spine fracture or traumatic subluxation. Chest X-Ray 03/04/21 10:36 IMPRESSION: There are a few small ill-defined patchy parenchymal opacities which may represent developing multifocal pneumonia. Short-term follow-up PA and lateral chest radiographs are recommended to ensure resolution. Head CT 03/04/21 10:36 IMPRESSION: No acute intracranial abnormality. No cervical spine fracture or traumatic subluxation. Assessment and Plan (1) Elevated CPK: Status: Acute (2) Cardiac enzymes elevated: Status: Acute 85-year-old female presenting with fall, elevated CPK and troponins. History is limited. ECG does not have any significant changes. Elevated BP. Can increase the Valsartan to 320 mg. Likely cause for her troponin elevation is mild rhabdomyolysis. Gentle hydration. Echo is showing no RWMA. Thank you for allowing me to participate in the care of your patient. Please feel free to contact me if you have any questions. Procedures Date of Service Date of Service: 03/04/21
[2021-03-05] VITALS (12 sets, daily range): BP systolic 143–178; BP diastolic 64–82; PULSE 60–74; RESP 18–20; TEMP 36.4–37; O2SAT 94–96
[2021-03-05] MEDS: 0.9 % Sodium Chloride Flush 3 ML SYRINGE IVFLUSH ×4 (01:23→20:36)
[2021-03-05] MEDS: Acetaminophen 325 MG TABLET 650 MG PO (05:09)
[2021-03-05 07:17] LABS: MANUAL DIFF FLAG NO
[2021-03-05] MEDS: 0.9 % Sodium Chloride 1,000 ML 100 ML IVCONT ×2 (07:19→15:46)
[2021-03-05 07:22] LABS: Basophils Percent Auto 0.2 % (0-2); Eosinophils Absolute Auto 0.1 X10*3/uL (0.0-0.4); Eosinophils Percent Auto 0.7 % (0-4); Hematocrit 36.9 % (37-47); Hemoglobin 11.6 g/dl (12.0-16.0); Imm Gran Abs Auto 0.02 X10*3/uL (0.00-0.03); Imm Gran Pct Auto 0.2 % (0.0-0.4); Lymphocytes Absolute Auto 1.4 X10*3/uL (1.2-4.9); Mean Corpuscular HGB Conc 31.4 g/dl (31.0-35.0); Mean Corpuscular Volume 98.7 fL (80-98); Mean Platelet Volume 11.5 fL (9.4-12.3); Monocytes Absolute Auto 0.9 X10*3/uL (0.1-1.2); Monocytes Percent Auto 10.2 % (2-11); Neutrophils Percent Auto 71.7 % (45-73); Platelet Count 176 X10*3/uL (160-400); Red Blood Count 3.74 X10*6/uL (4.20-5.50); Red Cell Distribution Width 15.1 % (11.0-16.0); White Blood Count 8.3 X10*3/uL (4.8-10.8)
--- NOTE | 2021-03-05 08:00 | ECG_ITS ---
Test Reason : FALL Blood Pressure : / mmHG Vent. Rate : 069 BPM Atrial Rate : 069 BPM P-R Int : 140 ms QRS Dur : 094 ms QT Int : 440 ms P-R-T Axes : 053 019 033 degrees QTc Int : 471 ms Normal sinus rhythm Normal ECG When compared with ECG of 04-MAR-2021 13:23, No significant change was found Referred By: Sarah Castro Electronically Signed By:Jaime Rangel
[2021-03-05 08:06] LABS: Blood Urea Nitrogen 17 mg/dL (9-16); Calcium 8.6 mg/dL (8.4-10.2); Creatinine Clr Calc Pharmacy 67.7; Estimated Glomerular Filt Rate > 60; Glucose Random 80 mg/dL (60-115)
[2021-03-05 08:27] LABS: Anion Gap 16 (12-20); Carbon Dioxide 22 mmol/L (22-29); Chloride 110 mmol/L (96-108); Potassium 3.7 mmol/L (3.3-5.1); Sodium 144 mmol/L (135-145)
[2021-03-05] MEDS: Clopidogrel Bisulfate 75 MG TABLET PO (08:37)
[2021-03-05] MEDS: Valsartan 160 MG TABLET PO (08:38)
[2021-03-05] MEDS: Docusate Sodium 100 MG CAPSULE PO ×2 (08:38→20:35)
[2021-03-05] MEDS: Ascorbic Acid 500 MG TABLET PO (08:38)
[2021-03-05] MEDS: Rivaroxaban 10 MG TABLET PO (08:38)
[2021-03-05] MEDS: hydrALAZINE HCl 10 MG TABLET PO (08:39)
[2021-03-05 09:21] LABS: Troponin-I High Sensitivity 644.4 ng/L (<3.5-17.0)
--- NOTE | 2021-03-05 10:26 | MHC.CM.PN ---
CM met with Patient and Daughter/HCP at bedside and addressed IMM, providing them with the original and placing a copy on the chart. Patient lives alone and uses a walker to assist with mobility. The goal for dc is for [facility] Jennifer Tapia and [facility] has initiated and will follow for dc planning.
--- NOTE | 2021-03-05 10:30 | MHC.CM.PN ---
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
--- NOTE | 2021-03-05 15:04 | HO.PM.IMPN ---
Subjective Subjective Date of Service: 03/05/21 Interval History: the patient was seen and evaluated this morning Laying in bed, feels comfortable Denies any fever, chills or shortness of breath No reported other overnight events. Systemic review: No fever, chills but reports overall weakness No chest pain, palpitation No shortness of breath or coughing No abdominal pain, nausea or vomiting No urinary symptoms No any rash or wounds Physical Exam Vital Signs: Vital Signs: Last Vital Signs Temp 97.5 F 03/05/21 12:00 Pulse 64 03/05/21 12:00 Resp 20 03/05/21 12:00 BP 178/79 H 03/05/21 12:00 Pulse Ox 95 03/05/21 12:00 Body Mass Index 21.3 Const: Other: Constitutional : Alert with stimulation, oriented to self and place, very sleepy and difficult to arouse but she wakes up with physical stimuli Neck : Normal inspection, Supple Cardiovascular : RRR, S1 S2, no lower extremity edema Respiratory : Fair bilateral air entry, no crackles, wheezes or rhonchi Gastrointestinal: soft, lax, Normal bowel sounds, Non tender Skin : Warm/Dry, No wounds noticed Neurological : Alert & oriented to self and place, No focal deficit Objective Data Current Medications Generic Name Dose Route Start Last Admin Trade Name Freq PRN Reason Stop Dose Admin Acetaminophen 650 mg 03/04/21 19:39 03/05/21 05:09 Acetaminophen 325 Mg Tablet PO 650 mg Q6H PRN Administration Pain, Mild (Pain Scale 1-3) Ascorbic Acid 500 mg 03/05/21 09:00 03/05/21 08:38 Ascorbic Acid 500 Mg Tablet PO 500 mg DAILY MICHELLE Administration Atorvastatin Calcium 40 mg 03/04/21 21:00 03/04/21 21:46 Atorvastatin Calcium 40 Mg Tablet PO 40 mg BEDTIME MICHELLE Administration Clopidogrel Bisulfate 75 mg 03/05/21 09:00 03/05/21 08:37 Clopidogrel Bisulfate 75 Mg Tablet PO 75 mg DAILY MICHELLE Administration Docusate Sodium 100 mg 03/04/21 21:00 03/05/21 08:38 Docusate Sodium 100 Mg Capsule PO 100 mg BID MICHELLE Administration Sodium Chloride 1,000 mls @ 100 mls/hr 03/04/21 19:39 03/05/21 07:19 Ns IVCONT 100 mls/hr .Q10H MICHELLE Administration Ondansetron HCl 4 mg 03/04/21 19:39 Ondansetron Hcl 4 Mg/2 Ml Vial IVPUSH Q8H PRN Nausea and Vomiting Pharmacy Consult 1 each 03/04/21 13:20 Consult Rx Perform Med Rec MISCELLANE ONCE PRN Consult order Rivaroxaban 10 mg 03/05/21 09:00 03/05/21 08:38 Rivaroxaban 10 Mg Tablet PO 10 mg DAILY MICHELLE Administration Sodium Chloride 3 ml 03/05/21 00:00 03/05/21 08:39 0.9 % Sodium Chloride Flush 3 Ml Syringe IVFLUSH 3 ml QSHIFT MICHELLE Administration Valsartan 160 mg 03/05/21 09:00 03/05/21 08:38 Valsartan 160 Mg Tablet PO 160 mg DAILY MICHELLE Administration Labs CBC & Chem 7: 03/05/21 06:07 03/05/21 06:07 Assessment and Plan (1) Fall: Status: Acute (2) Cardiac enzymes elevated: Status: Acute (3) Elevated CPK: Status: Acute (4) Physical deconditioning: Status: Acute Assessment and Plan: An 80 years old lady with PMH of HTN, HLD, carotid artery stenosis who presented to the hospital after sustaining a fall at home. Mechanical fall Secondary to physical deconditioning Negative orthostatic vitals To do physical therapy Uncontrolled hypertension Significantly elevated blood pressure Add amlodipine Increase valsartan to 160 Mild rhabdomyolysis Elevated CPK Secondary to fall and muscle injury Continue gentle hydration to avoid kidney injury Monitor BMP Elevated cardiac enzymes EKG within normal, no ST or T-wave changes, no complaint of chest pain Troponin trended down with repeat Echo showing normal cardiac function Cardiology input appreciated, no intervention needed History TIA continue statin, clopidogrel Hypertension Continue hydralazine, irbesartan and felodipine DVT PPX Xarelto
[2021-03-05] MEDS: amLODIPine Besylate 2.5 MG TABLET PO (15:46)
[2021-03-05] MEDS: Atorvastatin Calcium 40 MG TABLET PO (20:35)
[2021-03-05] MEDS: hydrALAZINE HCl 25 MG TABLET PO (20:35)
[2021-03-06 03:46] VITALS: BP 112/81; PULSE 69; RESP 19; TEMP 36.7; O2SAT 96
[2021-03-06 07:10] LABS: Anion Gap 11 (12-20); Blood Urea Nitrogen 12 mg/dL (9-16); Calcium 8.3 mg/dL (8.4-10.2); Carbon Dioxide 21 mmol/L (22-29); Chloride 112 mmol/L (96-108); Creatinine Clr Calc Pharmacy 70.1; Estimated Glomerular Filt Rate > 60; Glucose Random 85 mg/dL (60-115); Potassium 3.4 mmol/L (3.3-5.1); Sodium 141 mmol/L (135-145)
[2021-03-06 08:00] VITALS: BP 176/70; PULSE 96; RESP 20; TEMP 36.8; O2SAT 96
[2021-03-06 09:37] VITALS: BP 176/70; PULSE 96
[2021-03-06] MEDS: Rivaroxaban 10 MG TABLET PO (09:37)
[2021-03-06] MEDS: Docusate Sodium 100 MG CAPSULE PO (09:37)
[2021-03-06] MEDS: Valsartan 320 MG TABLET PO (09:37)
[2021-03-06] MEDS: Clopidogrel Bisulfate 75 MG TABLET PO (09:37)
[2021-03-06] MEDS: hydrALAZINE HCl 25 MG TABLET PO (09:37)
[2021-03-06] MEDS: Ascorbic Acid 500 MG TABLET PO (09:37)
[2021-03-06] MEDS: 0.9 % Sodium Chloride Flush 3 ML SYRINGE IVFLUSH (09:37)
--- NOTE | 2021-03-06 11:16 | MHC.CM.PN ---
Per MD discussion, Patient will be medically cleared for dc to STR/SNF today. Patient will dc to her first choice facility- [facility] today at 1PM, via [facility]. Last IMM addressed yesterday.
--- NOTE | 2021-03-06 11:34 | PM.DS ---
DS: Providers Provider Date of Service: 03/06/21 Date of admission: 03/04/21 17:55 Primary care physician: Ming Piper MD Consults: 03/04/21 19:39 Consult to Cardiology Routine Consulting Provider: Jaime Rangel Reason for consultation: Elevated Trop I for your kind eval. DS: Diagnosis Discharge Diagnosis (1) Fall: Status: Acute (2) Cardiac enzymes elevated: Status: Acute (3) Elevated CPK: Status: Acute (4) Physical deconditioning: Status: Acute DS: Medications Discharge Medications Home Medications: Home Medications Medication Instructions Recorded Confirmed acetaminophen 500 mg tablet 500 mg PO BID 01/05/21 03/04/21 atorvastatin 40 mg tablet 40 mg PO BEDTIME 01/05/21 03/04/21 felodipine 5 mg tablet,extended 5 mg PO DAILY 01/05/21 03/04/21 release 24 hr irbesartan 300 mg tablet 300 mg PO DAILY 01/05/21 03/04/21 ascorbate calcium (vitamin C) 500 500 mg PO DAILY 02/01/21 03/04/21 mg tablet docusate sodium 100 mg capsule 100 mg PO BID 02/01/21 03/04/21 vitamins A,C,F-cttf-mmksgd 14,320 1 cap PO DAILY 02/01/21 03/04/21 unit-226 mg-200 unit capsule Previous Rx's Medication Instructions Recorded clopidogrel 75 mg tablet 75 mg PO DAILY #90 tab 01/20/21 hydralazine 10 mg tablet 10 mg PO BID #60 tab 02/23/21 DS: Summary Hospital Course Hospital Course: Admission note HPI An 80 years old lady with PMH of HTN, HLD, carotid artery stenosis who presented to the hospital after sustaining a fall at home. The patient was so sleepy and difficult to arouse but she was able to tell me that she fell out of the bed with light feeling of lightheadedness. She denies any syncope or loss of conscious or hitting her head. Denies any headache, visual changes, chest pain, shortness of breath, fever or chills. In the emergency the patient was found to have significantly elevated troponin above 2000 the 1st reading that went down to 1800 and repeat with normal EKG reading. And no complain of chest pain. Found to have elevated CPK as well as a result of the fall and being on the floor for duration of time that is not clear. Admitted further evaluation and treatment. Hospital course The patient was admitted to the hospital after sustaining a fall. Blood work was consistent with elevated CPK troponin with normal EKG and no reported chest pain. She was treated mainly with hydration to prevent any kidney injury with good response as both CPK and troponin trended down. She was evaluated by purchasing specialist who recommended no further evaluation needed as it is likely from muscle breakdown. The patient was evaluated by physical therapy team who recommended short-term rehab. To continue her home medications and to be placed the rehab facility to start physical therapy. Time Spent with Patient Time attestation: Total time spent providing and/or coordinating discharge services: Discharge coordination time: Greater than 30 minutes Quality: Stroke Does the patient have a stroke diagnosis?: No Physical Exam Vital Signs: Vital Signs: Last Vital Signs Temp 98.2 F 03/06/21 08:00 Pulse 96 03/06/21 09:37 Resp 20 03/06/21 08:00 BP 176/70 H 03/06/21 09:37 Pulse Ox 96 03/06/21 08:00 Body Mass Index 21.3 Const: Other: Constitutional : Alert, oriented but difficult to hear as her hearing aids batteries ran out Neck : Normal inspection, Supple Cardiovascular : RRR, S1 S2, no lower extremity edema Respiratory : Fair bilateral air entry, no crackles, wheezes or rhonchi Gastrointestinal: soft, lax, Normal bowel sounds, Non tender Skin : Warm/Dry, No wounds noticed Neurological : Alert & oriented to self and place, No focal deficit DS: Data Data Completed and Pending Labs on day of discharge: Laboratory Results - last 24 hr 03/06/21 05:53 Sodium 141 Potassium 3.4 Chloride 112 H Carbon Dioxide 21 L Anion Gap 11 L BUN 12 Creatinine 0.57 Estim Creat Clear Calc 70.1 Estimated GFR > 60 Random Glucose 85 Calcium 8.3 L Discharge Plan Discharge Patient Disposition: [facility] Discharge Diagnosis: Fall Muscle breakdown Referrals: Jennifer Tapia [Outside] - 1 Week Ming Piper MD [Primary Care Provider] - 1 Week Discharge Medications: Continued clopidogrel 75 mg tablet 75 mg PO DAILY Qty: 90 RF: 0 hydralazine 10 mg tablet 10 mg PO BID Qty: 60 RF: 0 felodipine 5 mg tablet extended release 24 hr 5 mg PO DAILY RF: 0 irbesartan 300 mg tablet 300 mg PO DAILY RF: 0 atorvastatin 40 mg tablet 40 mg PO BEDTIME RF: 0 acetaminophen [Tylenol Extra Strength] 500 mg tablet 500 mg PO BID RF: 0 docusate sodium [Colace] 100 mg capsule 100 mg PO BID RF: 0 ascorbate calcium (vitamin C) 500 mg tablet 500 mg PO DAILY RF: 0 PreserVision AREDS 14,320-226-200 suuk-ej-bqce capsule 1 cap PO DAILY RF: 0 Discharge Orders: Discharge Order (Routine); Ordered 03/06/21 Ordered By: Sarah Castro Diet: advance to usual diet and low salt diet Activity on Discharge: As tolerated Stand Alone Forms: Patient Portal Discharge page Care Plan Goals: Read below Health Concerns: Read below Plan of Treatment: You were admitted to the hospital after sustaining fall at home. Found to muscle breakdown and elevated cardiac enzymes. Treated with hydration as you were evaluated by purchasing specialist and Physical therapy with recommendation for short-term rehab placement to improve your strength and stability. Assessment: No changes to Home medications. To start physical therapy
[2021-03-06 13:18] VITALS: BP 175/84; PULSE 74
[2021-03-06] MEDS: amLODIPine Besylate 5 MG TABLET PO (13:18)
== END 2021-03-06 14:15 | disposition skilled nursing facility (03) | DRG 566 ==
LOC: HO.ED 10:40 → HO.EDOVER 18:11 → HO.IMC 19:24
PROVIDERS: Admitting Provider Student in an Organized Health Care Education/Training Program; Emergency Provider Emergency Medicine Emergency Medical Services; PCP Internal Medicine; Visit Provider Student in an Organized Health Care Education/Training Program
DX: T79.6XXA Traumatic ischemia of muscle, initial encounter (principal); W06.XXXA Fall from bed, initial encounter; Y92.092 Bedroom in other non-institutional residence as the place of occurrence of the external cause; I10 Essential (primary) hypertension; E78.5 Hyperlipidemia, unspecified; Z86.73 Personal history of transient ischemic attack (TIA), and cerebral infarction without residual deficits; F03.90 Unspecified dementia, unspecified severity, without behavioral disturbance, psychotic disturbance, mood disturbance, and anxiety; Z20.822 Contact with and (suspected) exposure to COVID-19; Z88.6 Allergy status to analgesic agent; Z79.02 Long term (current) use of antithrombotics/antiplatelets; Z79.899 Other long term (current) drug therapy; Z66 Do not resuscitate
CPT/HCPCS: 0241U; 36415; 70450; 71045; 72125; 80048; 80076; 82550; 84484; 85025; 85610; 93005; 93306; 97162; 99285; 99291; Q9957; U0005

== ENCOUNTER → 2021-04-14 13:42 | Outpatient (BNVA) | payer MEDICARE, OTHER, SELFPAY | PROVIDERS: PCP Internal Medicine; Referring Provider Internal Medicine; Visit Provider Internal Medicine Cardiovascular Disease | DX: I10 Essential (primary) hypertension (principal) | CPT/HCPCS: 99212 ==

== ENCOUNTER 2021-06-27 12:59 | Outpatient (REF) | payer SELFPAY ==
--- NOTE | 2021-06-27 14:07 | MHC.AU.P13 ---
Hearing Instrument Problem Date of Visit: 06/27/21 Right Ear: Youth Care Worker: Phonak Model: [employer] [id number]-SP Serial Number: [id number] Repair Warranty: Loss and Damage Warranty: Battery Size: 13 Color: SANDALWOOD Tubing: TUBE LOCK Type of Mold: SKELETON Dispensed By: [facility] Date of Fittin10/08/2017 Left Ear: Youth Care Worker: Phonak Model: [employer] B50-SP Serial Number: [id number] Repair Warranty: Loss and Damage Warranty: Battery Size: 13 Color: SANDALWOOD Tubing: TUBE LOCK Type of Mold: SKELETON Type of Wax Guard: Dispensed By: [facility] Date of Fittin10/08/2017 Follow-Up Summary: Right hearing aid dropped off - not working. Hearing aid cleaned and earmold re-tubed - amplifying clearly. Recommendations: Recommendations: Hearing instrument follow-up or maintenance as needed. Signature: Provider: JAVI Peterson
== END 2021-06-27 13:00 | disposition home or self-care (01) ==
LOC: HO.HAP 12:59
PROVIDERS: Visit Provider Internal Medicine
DX: Z46.1 Encounter for fitting and adjustment of hearing aid (principal); H90.6 Mixed conductive and sensorineural hearing loss, bilateral
CPT/HCPCS: 99499; V5266

== ENCOUNTER 2021-08-02 10:58 | Outpatient (REF) | payer MEDICARE, OTHER, SELFPAY ==
[2021-08-02 11:20] LABS: MANUAL DIFF FLAG NO
[2021-08-02 11:45] LABS: Basophils Percent Auto 0.1 % (0-2); Eosinophils Absolute Auto 0.2 X10*3/uL (0.0-0.4); Eosinophils Percent Auto 2.2 % (0-4); Hematocrit 38.2 % (37.0-47.0); Imm Gran Abs Auto 0.02 X10*3/uL (0.00-0.03); Imm Gran Pct Auto 0.3 % (0.0-0.4); Lymphocytes Absolute Auto 1.6 X10*3/uL (1.2-4.9); Lymphocytes Percent Auto 21.5 % (20-40); Mean Corpuscular HGB Conc 31.4 g/dl (31.0-35.0); Mean Corpuscular Hemoglobin 30.6 pg (27.0-33.0); Mean Corpuscular Volume 97.4 fL (80.0-98.0); Mean Platelet Volume 11.2 fL (9.4-12.3); Monocytes Absolute Auto 0.7 X10*3/uL (0.1-1.2); Monocytes Percent Auto 9.6 % (2-11); Neutrophils Absolute Auto 5.02 x10*3/uL (2.0-8.3); Neutrophils Percent Auto 66.3 % (45-73); Platelet Count 210 X10*3/uL (160-400); Red Blood Count 3.92 X10*6/uL (4.20-5.50); Red Cell Distribution Width 14.6 % (11.0-16.0); White Blood Count 7.6 X10*3/uL (4.8-10.8)
[2021-08-02 12:18] LABS: Alanine Aminotransferase 23 U/L (0-31); Albumin Level 4.2 g/dL (3.5-5.0); Alkaline Phosphatase 98 U/L (39-117); Anion Gap 9 (12-20); Aspartate Amino Transferase 17 U/L (5-31); Bilirubin Total 0.5 mg/dL (0.0-1.0); Blood Urea Nitrogen 19 mg/dL (9-16); Calcium 9.2 mg/dL (8.4-10.2); Carbon Dioxide 31 mmol/L (22-29); Chloride 108 mmol/L (96-108); Cholesterol 147 mg/dL; Estimated Glomerular Filt Rate > 60; Glucose Fasting 80 mg/dL (60-99); HDL Cholesterol 50 mg/dL; LDL Cholesterol Calculated 81 mg/dl; Sodium 144 mmol/L (135-145); Total Protein 6.7 g/dL (6.5-8.0); Triglycerides 80 mg/dL
== END 2021-08-02 10:59 | disposition home or self-care (01) ==
LOC: HO.LAB 10:58
PROVIDERS: PCP Internal Medicine; Visit Provider Internal Medicine
DX: I10 Essential (primary) hypertension (principal); E78.00 Pure hypercholesterolemia, unspecified; R73.01 Impaired fasting glucose
CPT/HCPCS: 36415; 80053; 80061; 85025

== ENCOUNTER 2021-08-23 09:14 | Outpatient (REF) | payer MEDICARE, OTHER, SELFPAY ==
--- NOTE | 2021-08-23 09:39 | MHC.AU.AHA ---
Adult Audiological Evaluation Date of Visit: 08/23/21 Reason for Appointment: Audiological evaluation due to concern for decreased hearing. Ms. Tao has a known bilateral hearing loss, with the right ear hearing worse than her left. She uses hearing aids binaurally. She notes a gradual decrease in her hearing. She has a history of surgery to her right ear. She denies any significant changes to her medical history. Previous Hearing Test Results: Dr. Blunt's office, 02/01/2017- Moderate to severe SNHL in the left ear. Severe to profound mixed loss in the right ear. Ear History: History of Ear Wax Buildup: Both Ears Previous Ear Surgery: Right ear hx of mastoidectomy Medical History: Medical History: High Blood Pressure Medical History: Parkinson's Disease, hx of TIA Allergies: Aspirin Medication List: See medical record Hearing Instrument History- Right Ear: Granite Chip Terrazzo Finisher: Spot formerly PlacePop Model: RedRover B50-SP Serial Number: [id number] Battery Size: 13 Repair Warranty: Loss and Damage Warranty: Dispensed By: [facility] Date of Fittin10/08/2017 Hearing Instrument History- Left Ear: Granite Chip Terrazzo Finisher: MindCare Solutionsak Model: RedRover B50-SP Serial Number: [id number] Battery Size: 13 Warranty: Loss and Damage Warranty: Dispensed By: [facility] Date of Fittin10/08/2017 Otoscopy: Right Ear: Partially occluded with cerumen Left Ear: Partially occluded with cerumen Tympanometry: Tympanometry performed due to: History of mixed hearing loss Right Ear: Could Not Obtain Seal Left Ear: Could Not Obtain Seal Hearing Evaluation: Transducer(s) Used: Circumaural Headphones, Bone Conduction Method: Conventional Audiometry Stimuli Used: Pure Tones Right Ear: Description of Hearing: Severe to profound mixed hearing loss from 250-8000 Hz. Left Ear: Description of Hearing: Moderate sloping to profound sensorineural hearing loss from 250-8000 Hz. Speech Recognition Threshold (SRT): Method Used: Monitored Live Voice Stimuli Used: Spondee Words Right Ear: 80 dBHL Left Ear: 55 dBHL Word Discrimination: Method: Recorded Lists Word Lists Used: NU-6 Right Ear: 44% at 100 dBHL Left Ear: 48% at 90 dBHL Comparison: Compared to the most recent evaluation: Thesholds have decreased in the right ear. Word discrimination scores have decreased bilaterally. Compared to most recent evaluation: 10-20 dBHL decrease in hearing from 500-4000 Hz in the left ear. Significant decrease in word discrimination scores bilaterally compared to scores of 84% at 95 dBHL in the right ear and 92% at 80 dBHL in the left ear in 2017. Recommendations: Audiological re-evaluation in one year. Hearing aid maintenance performed today. Hearing aid(s) reprogrammed with updated test results. Diagnosis: Primary Diagnosis: H90.3 Bilateral Sensorineural Hearing Loss Services Performed: Comprehensive Audiological Evaluation (CPT 47800) Signature: Provider: Konrad Rangel, CCC-A
== END 2021-08-23 09:15 | disposition home or self-care (01) ==
LOC: HO.SH 09:14
PROVIDERS: Visit Provider Internal Medicine
DX: H90.3 Sensorineural hearing loss, bilateral (principal)
CPT/HCPCS: 92557

== ENCOUNTER 2021-10-24 11:19 | Outpatient (REF) | payer SELFPAY ==
--- NOTE | 2021-10-24 11:37 | MHC.AU.P13 ---
Hearing Instrument Maintenance Date of Visit: 10/24/21 Right Ear: Certified Meeting Professional: Phonak Model: FilaExpressero B50-SP Serial Number: [id number] Repair Warranty: Loss and Damage Warranty: Battery Size: 13 Color: SANDALWOOD Tubing: TUBE LOCK Type of Mold: SKELETON Dispensed By: [facility] Date of Fittin10/08/2017 Left Ear: Certified Meeting Professional: Phonak Model: Bolero B50-SP Serial Number: [id number] Repair Warranty: Loss and Damage Warranty: Battery Size: 13 Color: SANDALWOOD Tubing: TUBE LOCK Type of Mold: SKELETON Dispensed By: [facility] Date of Fittin10/08/2017 Follow-Up Summary: Hearing aids brought in for cleaning. Both aids and earmolds cleaned and retubed - new earhook placed on right aid - both now amplifying clearly. Billed $10.00 Recommendations: Recommendations: Hearing instrument follow-up or maintenance as needed. Diagnosis Code(s): Primary Diagnosis: H90.3 Bilateral Sensorineural Hearing Loss Signature: Provider: LEANN Peterson-HIS
== END 2021-10-24 11:20 | disposition home or self-care (01) ==
LOC: HO.HAP 11:19
PROVIDERS: Visit Provider Internal Medicine
DX: Z46.1 Encounter for fitting and adjustment of hearing aid (principal); H90.3 Sensorineural hearing loss, bilateral
CPT/HCPCS: 99499

== ENCOUNTER 2021-12-19 13:49 | Outpatient (REF) | payer MEDICARE, OTHER, SELFPAY ==
[2021-12-19 14:22] LABS: MANUAL DIFF FLAG NO
[2021-12-19 14:46] LABS: Basophils Percent Auto 0.4 % (0-2); Eosinophils Absolute Auto 0.3 X10*3/uL (0.0-0.4); Eosinophils Percent Auto 3.7 % (0-4); Hematocrit 39.4 % (37.0-47.0); Hemoglobin 12.3 g/dl (12.0-16.0); Imm Gran Abs Auto 0.03 X10*3/uL (0.00-0.03); Imm Gran Pct Auto 0.4 % (0.0-0.4); Lymphocytes Percent Auto 23.5 % (20-40); Mean Corpuscular HGB Conc 31.2 g/dl (31.0-35.0); Mean Corpuscular Hemoglobin 30.8 pg (27.0-33.0); Mean Corpuscular Volume 98.7 fL (80.0-98.0); Mean Platelet Volume 11.2 fL (9.4-12.3); Monocytes Absolute Auto 0.7 X10*3/uL (0.1-1.2); Monocytes Percent Auto 8.5 % (2-11); Neutrophils Absolute Auto 5.4 x10*3/uL (2.0-8.3); Neutrophils Percent Auto 63.5 % (45-73); Platelet Count 222 X10*3/uL (160-400); Red Blood Count 3.99 X10*6/uL (4.20-5.50); Red Cell Distribution Width 13.9 % (11.0-16.0); White Blood Count 8.4 X10*3/uL (4.8-10.8)
[2021-12-19 15:44] LABS: TSH reflex Free T4 1.14 uIU/mL (0.32-4.0)
[2021-12-19 16:22] LABS: Vitamin D 25-OH Total 43.7 ng/mL (>30)
== END 2021-12-19 13:50 | disposition home or self-care (01) ==
LOC: HO.LAB 13:49
PROVIDERS: PCP Internal Medicine; Visit Provider Internal Medicine
DX: I10 Essential (primary) hypertension (principal); E78.00 Pure hypercholesterolemia, unspecified; E55.9 Vitamin D deficiency, unspecified
CPT/HCPCS: 36415; 82306; 84443; 85025

== ENCOUNTER 2021-12-26 09:32 | Outpatient (REF) | payer MEDICARE, OTHER, SELFPAY ==
[2021-12-26 10:34] LABS: Appearance Urine HAZY; Color Urine YELLOW; Glucose Urine UA NEG (NEG); Leukocyte Esterase Urine NEG (NEG); Nitrite Urine NEG (NEG); PH 5.5 (5.0-8.0); Specific Gravity - Urine >= 1.030 (1.005-1.025); UACC Culture Trigger NO; Urine Blood NEG (NEG); Urine Ketones NEG (NEG); Urine Protein 2+ MG/DL (NEG-TRACE)
[2021-12-26 10:53] LABS: RBC Urine 0 /HPF (0); Squamous Epithelial Cell Urine 3+ /LPF; WBC Urine 0-2 /HPF (0-4)
[2021-12-26 10:54] LABS: Amorphous Sediment Urine 2+ /LPF; Bacteria Urine TRACE /LPF; Calcium Oxalate Crystals Urine 4+ /LPF
[2021-12-26 11:23] LABS: Alanine Aminotransferase < 6 U/L (0-31); Albumin Level 4.1 g/dL (3.5-5.0); Alkaline Phosphatase 103 U/L (39-117); Anion Gap 11 (12-20); Aspartate Amino Transferase 18 U/L (5-31); Bilirubin Total 0.9 mg/dL (0.0-1.0); Blood Urea Nitrogen 15 mg/dL (9-16); Calcium 10.3 mg/dL (8.4-10.2); Carbon Dioxide 29 mmol/L (22-29); Chloride 106 mmol/L (96-108); Cholesterol 148 mg/dL; Estimated Glomerular Filt Rate > 60; Glucose Fasting 100 mg/dL (60-99); HDL Cholesterol 47 mg/dL; LDL Cholesterol Calculated 85 mg/dl; Potassium 3.8 mmol/L (3.3-5.1); Sodium 142 mmol/L (135-145); Total Protein 6.7 g/dL (6.5-8.0); Triglycerides 82 mg/dL
== END 2021-12-26 09:33 | disposition home or self-care (01) ==
LOC: HO.LAB 09:32
PROVIDERS: PCP Internal Medicine; Visit Provider Internal Medicine
DX: E78.00 Pure hypercholesterolemia, unspecified (principal)
CPT/HCPCS: 36415; 80053; 80061; 81001

== ENCOUNTER 2021-12-29 13:54 | Outpatient (REF) | payer SELFPAY | END 2021-12-29 13:55 | disposition home or self-care (01) | LOC: HO.HAP 13:54 | PROVIDERS: Visit Provider Internal Medicine | DX: Z13.89 Encounter for screening for other disorder (principal) ==

== ENCOUNTER 2021-12-30 13:34 | Outpatient (REF) | payer SELFPAY | END 2021-12-30 13:35 | disposition home or self-care (01) | LOC: HO.HAP 13:34 | PROVIDERS: Visit Provider Internal Medicine | DX: Z46.1 Encounter for fitting and adjustment of hearing aid (principal); H90.3 Sensorineural hearing loss, bilateral | CPT/HCPCS: 99499 ==

== ENCOUNTER 2022-01-20 13:26 | Emergency (ER) | payer MEDICARE, OTHER, SELFPAY ==
--- NOTE | ~2022-01-20 | CT_ITS ---
EXAMINATION: CT HEAD WITHOUT CONTRAST (STROKE PROTOCOL) CLINICAL INFORMATION: Stroke protocol. Dysarthric speech. Resolved. COMPARISON: March 04, 2021 TECHNIQUE: Contiguous axial imaging was performed from the skull base to vertex without intravenous administration of contrast. This CT examination was performed using dose optimization techniques as appropriate, variously including the following: *Automated exposure control *Adjustment of mA and/or kV according to patient size (this includes techniques or standardized protocols for targeted exams where dose is matched to indication/reason for exam; i.e. extremities or head) *Use of iterative reconstruction technique DLP: 667 mGy-cm FINDINGS: There is no intracranial hemorrhage, hematoma, or extra-axial fluid collection. The ventricles are normal in size. There is no hydrocephalus, edema, or mass effect. The kam-white matter differentiation appears symmetric. There is no acute infarct or mass lesion. 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 There are are tiny bilateral lacunar infarcts within the lentiform nuclei bilaterally. The calvarium appears intact. There is no pneumocephalus or orbital emphysema. The visualized sinuses and middle ears and mastoid air cells show no significant mucosal thickening. There are no air-fluid levels. There are prominent vertebral and carotid artery calcifications present. CT/CT head for stroke IMPRESSION: No acute intracranial pathology. This critical result was discussed with Cb Eastman at 1350 p.m. hours on January 20, 2022. It was ascertained that the content and urgency of the report was understood at the time of direct communication.
--- NOTE | 2022-01-20 13:32 | ECG_ITS ---
Test Reason : SLURRED SPEECH Blood Pressure : / mmHG Vent. Rate : 073 BPM Atrial Rate : 073 BPM P-R Int : 150 ms QRS Dur : 092 ms QT Int : 412 ms P-R-T Axes : 050 004 033 degrees QTc Int : 453 ms Normal sinus rhythm Normal ECG When compared with ECG of 04-MAR-2021 19:50, No significant change was found Referred By: Cb Eastman Electronically Signed By:ZACHARY CURRIE MD
[2022-01-20 13:33] VITALS: BP 132/66; PULSE 68
[2022-01-20 13:41] VITALS: BP 160/60; PULSE 72; RESP 18; TEMP 36.6; O2SAT 98; BMI 25.7
[2022-01-20 13:52] LABS: Prothrombin Time Whole Bld POC 12.1 sec (11.1-13.5)
[2022-01-20 13:53] LABS: Glucose, Whole Blood 99 mg/dL (60-115)
--- NOTE | 2022-01-20 14:30 | MHC.STROKE ---
01/20/22 1319 EMS PRE-NOTIFICATION STROKE ALERT FROM [facility] (SHE HAS LIVED THERE 2 YEARS). C/O SLURRED SPEECH NOTICED AT 1100 AND LASTED 10 MINUTES. SEEN BY ED PROVIDER AND STAT CT HEAD, STROKE PROTOCOL ACTIVATED. NIHSS=[address] NO BLEED. EXCLUDED FROM TPA-ALTEPLASE BASED ON NIHSS = 0 AND SYMPTOMS GONE. I MET THE PATIENT AND HER GERIATRIC CAREGIVER NEHEMIAS WHO IS A BUILDING ESTIMATOR. PATIENT DOES NOT HAVE ANY FAMILY LOCALLY. 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 HER SPEAK IS BACK TO BASELINE. I DISCUSSED THE CASE WITH DR RAMÍREZ, HE HAS SPOKE TO DR. FLEMING AND THE CAREGIVER ALSO CALLED DR FLEMING. I OBTAINED THE OFFICE NOTE FROM 01/12/22 AND GAVE IT TO DR RAMÍREZ. THE CAREGIVER SAID DR. FLEMING RECOMMENDED MAKING MEDICATION CHANGES TO ONCE A DAY. DR RAMÍREZ IS MANAGING THIS. I PROVIDED STROKE EDUCATION AND GAVE THEM THE BOOKLET. I WILL FOLLOW NEEDED.
[2022-01-20 14:36] LABS: MANUAL DIFF FLAG NO
[2022-01-20 14:44] LABS: Prothrombin Time 11.4 SEC (9.9-13.0)
[2022-01-20 14:48] LABS: Partial Thromboplastin Time 23.5 SEC (24.1-38.0)
[2022-01-20 14:50] LABS: Basophils Percent Auto 0.4 % (0-2); Eosinophils Absolute Auto 0.1 X10*3/uL (0.0-0.4); Eosinophils Percent Auto 1.6 % (0-4); Hematocrit 38.6 % (37.0-47.0); Hemoglobin 12.2 g/dl (12.0-16.0); Imm Gran Abs Auto 0.02 X10*3/uL (0.00-0.03); Imm Gran Pct Auto 0.3 % (0.0-0.4); Lymphocytes Absolute Auto 1.8 X10*3/uL (1.2-4.9); Lymphocytes Percent Auto 23.7 % (20-40); Mean Corpuscular HGB Conc 31.6 g/dl (31.0-35.0); Mean Corpuscular Hemoglobin 30.9 pg (27.0-33.0); Mean Corpuscular Volume 97.7 fL (80.0-98.0); Mean Platelet Volume 11.1 fL (9.4-12.3); Monocytes Absolute Auto 0.7 X10*3/uL (0.1-1.2); Monocytes Percent Auto 9.6 % (2-11); Neutrophils Absolute Auto 4.8 x10*3/uL (2.0-8.3); Neutrophils Percent Auto 64.4 % (45-73); Platelet Count 196 X10*3/uL (160-400); Red Blood Count 3.95 X10*6/uL (4.20-5.50); Red Cell Distribution Width 14.3 % (11.0-16.0); Stroke Lab Use COMPLETE; White Blood Count 7.4 X10*3/uL (4.8-10.8)
[2022-01-20 15:00] LABS: Anion Gap 12 (12-20); Blood Urea Nitrogen 19 mg/dL (9-16); Calcium 9.7 mg/dL (8.4-10.2); Carbon Dioxide 28 mmol/L (22-29); Chloride 107 mmol/L (96-108); Creatinine Clr Calc Pharmacy 44.9; Estimated Glomerular Filt Rate > 60; Glucose Random 102 mg/dL (60-115); Potassium 4.1 mmol/L (3.3-5.1); Sodium 143 mmol/L (135-145)
[2022-01-20 15:05] LABS: Troponin-I High Sensitivity 4.2 ng/L (<3.5-17.0)
[2022-01-20 15:41] VITALS: BP 166/64; PULSE 75; RESP 21; TEMP 37.1; O2SAT 96
[2022-01-20 15:51] VITALS: BP 166/64; PULSE 71; RESP 18; TEMP 37; O2SAT 97
[2022-01-20 15:56] LABS: Glucose, Whole Blood 93 mg/dL (60-115)
--- NOTE | 2022-01-20 16:53 | ED_ITS ---
HPI - General Adult General Chief complaint: General Medical Stated complaint: r sided weakness/garbled speech Time Seen by Provider: 01/20/22 13:31 Source: patient and other ([employer]ER/nurse behavioral health care) Mode of arrival: EMS Limitations: no limitations History of Present Illness HPI narrative: 86-year-old female who presents emergency department for evaluation of difficulty speaking which occurred around 12 30 p.m. on the day presentation. The patient told me that she had difficulty speaking and then it resolved. She states that they were waiting to hear from her doctor whether she come to the emergency department are not and then her doctor contacted her and viral go to the emergency department for evaluation. Time of evaluation, the patient states that her speech feels normal, her speech is comprehensible and she answers all questions appropriately. She denies any other symptoms such as headache, neck pain, chest pain, shortness of breath, nausea, vomiting, fever, chills, frequency, urgency or dysuria The patient was recently started on Keppra twice a day for possible seizure disorder. The patient's caregivers concerned that this medication may be making the patient lethargic. Related Data Home Medications Medication Instructions Recorded Confirmed acetaminophen 500 mg tablet 500 mg PO BID 01/05/21 12/26/21 (Tylenol Extra Strength) ascorbate calcium (vitamin C) 500 500 mg PO DAILY 02/01/21 12/26/21 mg tablet docusate sodium 100 mg capsule 100 mg PO BID 02/01/21 12/26/21 (Colace) vitamins A,C,H-tyre-zkjhex 14,320 1 cap PO DAILY 02/01/21 12/26/21 unit-226 mg-200 unit capsule (PreserVision AREDS) carbidopa 25 mg-levodopa 100 mg 1 tab PO TID 04/08/21 12/26/21 tablet carbidopa ER 50 mg-levodopa 200 mg 1 tab PO BID 08/09/21 12/26/21 tablet,extended release Previous Rx's Medication Instructions Recorded irbesartan 300 mg tablet 300 mg PO DAILY 90 Days #90 tab 08/09/21 atorvastatin 40 mg tablet 40 mg PO BEDTIME #90 tab 11/04/21 hydralazine 10 mg tablet 10 mg PO BID #180 tab 11/22/21 clopidogrel 75 mg tablet 75 mg PO DAILY #90 tab 01/13/22 felodipine 5 mg tablet,extended 5 mg PO DAILY #90 tab 01/13/22 release 24 hr Allergies Allergy/AdvReac Type Severity Reaction Status Date / Time aspirin Allergy Severe angioedema Verified 12/26/21 11:41 Review of Systems Review of Systems: Yes all other systems are reviewed and are negative [facility] Past Medical History Medical History Benign essential hypertension Carotid artery stenosis Difficulty walking Dysphagia Elevated CPK Impaired fasting glucose Overweight (BMI 25.0-29.9) Parkinson's Disease Pure hypercholesterolemia Seizure TIA (transient ischemic attack) Tremor Surgical History History of right-sided carotid endarterectomy Family History Family History Father No problems noted. Mother HTN (hypertension) Social History Social History Household Members: None and Other Housing: Assisted Living Facility Alcohol intake: never Patient Tobacco Use Status: Never used Tobacco Second Hand Smoke Exposure: No Advance Directives: Yes Advance Directives Information Provided: Yes Advance Directives on File: No service: No Current occupational status: retired Cognitive needs: Yes Hearing needs: Yes Vision needs: Yes Physical Exam ED Vital Signs: Vital Signs - 24 hr 01/20/22 13:41 01/20/22 15:41 01/20/22 15:51 Temperature 98 F 98.8 F 98.6 F Pulse Rate 72 75 71 Respiratory Rate 18 21 H 18 Blood Pressure 160/60 H 166/64 H 166/64 H Pulse Oximetry 98 96 97 BMI result Body Mass Index 25.7 Const General: cooperative and no acute distress Orientation/consciousness: oriented to person and oriented to place Limitations: no limitations HENMT Head: Yes normal to inspection, Yes normocephalic and Yes atraumatic Ears: external ears normal General nose exam: Normal external nose present Face and sinus: Yes normal facial exam Mouth: Normal oral and palatal mucosa present Throat: Yes posterior oropharynx normal Eyes General: appearance normal, both eyes and all related structures Pupils: Equal, round and reactive pupils present Neck Neck: Yes normal visual inspection, Yes no lymphadenopathy, Yes trachea midline and Yes supple Chest Chest palpation & inspection: normal inspection of the chest and normal palpation of entire chest wall Resp Effort & Inspection: normal respiratory effort and able to speak in complete s entences Auscultation: clear to auscultation bilaterally Cardio Rate: regular rate Rhythm: regular rhythm Heart sounds: S1 normal heart sound present, S2 normal heart sound present and no murmurs GI Inspection: Yes normal to inspection Palpation (GI): Soft to palpation, nontender and no guarding Auscultation: normal bowel sounds General: Yes no CVA tenderness Back/Spine/Pelvis Back: no CVA tenderness Skin General skin exam: no rashes or lesions noted Neuro Other: Resting tremor of the upper extremity General: oriented to person and oriented to place Cranial nerves: Yes CN's II-XII intact bilaterally and Yes Equal, round and reactive pupils present Cognition (Neuro): normal cognition Motor exam (neuro): 5/5 motor strength present throughout Extrem General: Yes normal to inspection Psych Appearance: grossly normal Speech and movement: Normal speech and movement present Affect: normal affect Attitude: cooperative Thought process: Normal thought process present Course Course Course Narrative: 86-year-old female who presents emergency department for an episode of garbled speech which resolved prior to coming to the emergency department . The patient had no other associated symptoms. The patient does have a history of stroke and TIAs. Patient was also recently started on Keppra for possible seizure disorder. Vital signs revealed an elevated blood pressure of 160/60 otherwise unremarkable. Patient's examination was unremarkable with a nonfocal neurologic exam. The patient was sent directly to the CT scan for stroke workup. Laboratory evaluation was also ordered. 1712: Laboratory evaluation: CBC, CMP were normal. High sensitivity troponin I was detectable at 4.2 but not elevated. Coags were normal. Radiology evaluation: CT scan of the brain without contrast revealed no acute findings, the patient does have white matter changes. The patient's presentation and findings are consistent with possible TIA as the cause of her symptoms. The patient's caregiver is concerned that the patient may be more lethargic since starting her Keppra and the patient's neurologist recommend decreasing her dose to 1 dose at night only. I did discuss these findings with the patient's caregiver and the patient's daughter. A urine sample is obtained but there was only a small amount of urine therefore was only sent for urine culture however the patient is asymptomatic and we will only treat her for urinary tract infection if she has a positive culture. Medical Decision Making Lab Data Result diagrams: 01/20/22 14:29 01/20/22 14:29 Labs: Lab Results 01/20/22 01/20/22 01/20/22 Range/Units 13:46 13:46 14:29 WBC 7.4 (4.8-10.8) X10*3/uL RBC 3.95 L (4.20-5.50) X10*6/uL Hgb 12.2 (12.0-16.0) g/dl Hct 38.6 (37.0-47.0) % MCV 97.7 (80.0-98.0) fL MCH 30.9 (27.0-33.0) pg MCHC 31.6 (31.0-35.0) g/dl RDW 14.3 (11.0-16.0) % Plt Count 196 (160-400) X10*3/uL MPV 11.1 (9.4-12.3) fL Immature Gran % (Auto) 0.3 (0.0-0.4) % Neut % (Auto) 64.4 (45-73) % Lymph % (Auto) 23.7 (20-40) % Carter % (Auto) 9.6 (2-11) % Eos % (Auto) 1.6 (0-4) % Baso % (Auto) 0.4 (0-2) % Lymph # (Auto) 1.8 (1.2-4.9) X10*3/uL Carter # (Auto) 0.7 (0.1-1.2) X10*3/uL Eos # (Auto) 0.1 (0.0-0.4) X10*3/uL Baso # (Auto) 0.0 (0.0-0.2) X10*3/uL Abs Immat Gran (auto) 0.02 (0.00-0.03) X10*3/uL Absolute Neuts (auto) 4.8 (2.0-8.3) x10*3/uL Absolute Nucleated RBC 0.000 (0.0-0.012) X10*3/uL Nucleated RBC % (auto) 0.0 (0.0-0.2) /100WBC PT (9.9-13.0) SEC Whole Blood PT 12.1 (11.1-13.5) sec INR (0.9-1.1) Whole Blood INR 1.0 (0.9-1.1) APTT (24.1-38.0) SEC Sodium (135-145) mmol/L Potassium (3.3-5.1) mmol/L Chloride (96-108) mmol/L Carbon Dioxide (22-29) mmol/L Anion Gap (12-20) BUN (9-16) mg/dL Creatinine (0.5-1.4) mg/dL Estim Creat Clear Calc Estimated GFR POC Glucose 99 (60-115) mg/dL Random Glucose (60-115) mg/dL Calcium (8.4-10.2) mg/dL Total Creatine Kinase (26-140) U/L Troponin I High Sens (<3.5-17.0) ng/L 01/20/22 01/20/22 01/20/22 Range/Units 14:29 14:29 14:29 WBC (4.8-10.8) X10*3/uL RBC (4.20-5.50) X10*6/uL Hgb (12.0-16.0) g/dl Hct (37.0-47.0) % MCV (80.0-98.0) fL MCH (27.0-33.0) pg MCHC (31.0-35.0) g/dl RDW (11.0-16.0) % Plt Count (160-400) X10*3/uL MPV (9.4-12.3) fL Immature Gran % (Auto) (0.0-0.4) % Neut % (Auto) (45-73) % Lymph % (Auto) (20-40) % Carter % (Auto) (2-11) % Eos % (Auto) (0-4) % Baso % (Auto) (0-2) % Lymph # (Auto) (1.2-4.9) X10*3/uL Carter # (Auto) (0.1-1.2) X10*3/uL Eos # (Auto) (0.0-0.4) X10*3/uL Baso # (Auto) (0.0-0.2) X10*3/uL Abs Immat Gran (auto) (0.00-0.03) X10*3/uL Absolute Neuts (auto) (2.0-8.3) x10*3/uL Absolute Nucleated RBC (0.0-0.012) X10*3/uL Nucleated RBC % (auto) (0.0-0.2) /100WBC PT 11.4 (9.9-13.0) SEC Whole Blood PT (11.1-13.5) sec INR 1.0 (0.9-1.1) Whole Blood INR (0.9-1.1) APTT 23.5 L (24.1-38.0) SEC Sodium 143 (135-145) mmol/L Potassium 4.1 (3.3-5.1) mmol/L Chloride 107 (96-108) mmol/L Carbon Dioxide 28 (22-29) mmol/L Anion Gap 12 (12-20) BUN 19 H (9-16) mg/dL Creatinine 0.79 (0.5-1.4) mg/dL Estim Creat Clear Calc 44.9 Estimated GFR > 60 POC Glucose (60-115) mg/dL Random Glucose 102 (60-115) mg/dL Calcium 9.7 (8.4-10.2) mg/dL Total Creatine Kinase 63 D (26-140) U/L Troponin I High Sens 4.2 (<3.5-17.0) ng/L 01/20/22 Range/Units 15:50 WBC (4.8-10.8) X10*3/uL RBC (4.20-5.50) X10*6/uL Hgb (12.0-16.0) g/dl Hct (37.0-47.0) % MCV (80.0-98.0) fL MCH (27.0-33.0) pg MCHC (31.0-35.0) g/dl RDW (11.0-16.0) % Plt Count (160-400) X10*3/uL MPV (9.4-12.3) fL Immature Gran % (Auto) (0.0-0.4) % Neut % (Auto) (45-73) % Lymph % (Auto) (20-40) % Carter % (Auto) (2-11) % Eos % (Auto) (0-4) % Baso % (Auto) (0-2) % Lymph # (Auto) (1.2-4.9) X10*3/uL Carter # (Auto) (0.1-1.2) X10*3/uL Eos # (Auto) (0.0-0.4) X10*3/uL Baso # (Auto) (0.0-0.2) X10*3/uL Abs Immat Gran (auto) (0.00-0.03) X10*3/uL Absolute Neuts (auto) (2.0-8.3) x10*3/uL Absolute Nucleated RBC (0.0-0.012) X10*3/uL Nucleated RBC % (auto) (0.0-0.2) /100WBC PT (9.9-13.0) SEC Whole Blood PT (11.1-13.5) sec INR (0.9-1.1) Whole Blood INR (0.9-1.1) APTT (24.1-38.0) SEC Sodium (135-145) mmol/L Potassium (3.3-5.1) mmol/L Chloride (96-108) mmol/L Carbon Dioxide (22-29) mmol/L Anion Gap (12-20) BUN (9-16) mg/dL Creatinine (0.5-1.4) mg/dL Estim Creat Clear Calc Estimated GFR POC Glucose 93 (60-115) mg/dL Random Glucose (60-115) mg/dL Calcium (8.4-10.2) mg/dL Total Creatine Kinase (26-140) U/L Troponin I High Sens (<3.5-17.0) ng/L ECG Data Attestation: I personally reviewed and interpreted this ECG as follows: Interpretation: 1344: Normal sinus rhythm rate of 73, normal DE interval QRS duration QTC int erval, no PACs, no PVCs, no ST segment elevation, no ST segment depression, normal EKG. Discharge Plan Discharge Clinical Impression: TIA (transient ischemic attack) Patient Disposition: Home, Self-Care Instructions: Transient Ischemic Attack (ED) Additional Instructions: Your blood work was unremarkable. Your CT scan was normal. The EKG was unremarkable At this time I do not have a clear cause for your symptoms, it is possible you may have had a TIA (transient ischemic attack) Is also possible that she new medication may have cause you to be lethargic causing her slurred speech. Your neurologist is recommending that you change the dose of this medication from twice a day to 1 dose at night. Follow-up with your doctor in 2 days. Please return to the emergency department if your symptoms get worse or if you develop any symptoms that are concerning to you. I did send your urine for a urine culture, if you grow bacteria out of your urine we should contact you in the next 2-3 days per If you develops symptoms of urine infection such as burning when you urinates, urinating frequently, weakness,, belly pain or back pain that you should talk to your doctor to check this culture result and see if you need to be on antibiotics. Prescriptions: No Action atorvastatin 40 mg tablet 40 mg PO BEDTIME Qty: 90 0RF hydralazine 10 mg tablet 10 mg PO BID Qty: 180 0RF felodipine 5 mg tablet extended release 24 hr 5 mg PO DAILY Qty: 90 0RF clopidogrel 75 mg tablet 75 mg PO DAILY Qty: 90 0RF irbesartan 300 mg tablet 300 mg PO DAILY 90 Days Qty: 90 1RF carbidopa-levodopa 50-200 mg tablet extended release 1 tab PO BID 0RF acetaminophen [Tylenol Extra Strength] 500 mg tablet 500 mg PO BID 0RF carbidopa-levodopa 25-100 mg tablet 1 tab PO TID 0RF docusate sodium [Colace] 100 mg capsule 100 mg PO BID 0RF ascorbate calcium (vitamin C) 500 mg tablet 500 mg PO DAILY 0RF PreserVision AREDS 14,320-226-200 urmq-da-kped capsule 1 cap PO DAILY 0RF Interventions: ED Discharge Assessment Last Done: 01/20/22 17:12 Discharge Date/Time: 01/20/22 17:14
== END 2022-01-20 17:14 | disposition home or self-care (01) ==
PROVIDERS: Emergency Provider Emergency Medicine Emergency Medical Services; PCP Internal Medicine
DX: G45.9 Transient cerebral ischemic attack, unspecified (principal); R47.81 Slurred speech; Z79.899 Other long term (current) drug therapy
CPT/HCPCS: 36415; 70450; 80048; 82550; 82947; 84484; 85025; 85610; 85730; 87086; 93005; 99284

== ENCOUNTER 2022-02-04 19:50 | Observation (INO) | payer MEDICARE, OTHER, SELFPAY ==
--- NOTE | ~2022-02-04 | XR_ITS ---
EXAMINATION: XR CHEST CLINICAL INFORMATION: Cough and SOB COMPARISON: Chest 02/04/2022 TECHNIQUE: Frontal view of the chest was obtained. FINDINGS: The lungs are well-expanded with platelike atelectasis left lung base. The heart size and pulmonary vascularity is normal. No gross bony abnormality seen. XR/XR chest 1V IMPRESSION: Minimal atelectatic changes left lung base.
--- NOTE | ~2022-02-04 | CT_ITS ---
EXAMINATION: CT HEAD WITHOUT CONTRAST CLINICAL INFORMATION: Altered mental status COMPARISON: 01/20/2022 TECHNIQUE: Contiguous axial imaging was performed from the skull base to vertex without intravenous administration of contrast. This CT examination was performed using dose optimization techniques as appropriate, variously including the following: *Automated exposure control *Adjustment of mA and/or kV according to patient size (this includes techniques or standardized protocols for targeted exams where dose is matched to indication/reason for exam; i.e. extremities or head) *Use of iterative reconstruction technique DLP: 654 mGy-cm FINDINGS: There is no evidence of acute intracranial hemorrhage or territorial infarction. No abnormal mass effect or midline shift is seen. Dolan to white matter differentiation is well preserved. No extra-axial fluid collections are identified. The ventricles are normal in size. There is mild periventricular white matter hypoattenuation consistent with chronic small vessel ischemic disease. The osseous structures and soft tissues are normal. Partially opacified bilateral mastoid air cells. Mucosal thickening noted in the ethmoid air cells. CT/CT head/brain wo con IMPRESSION: No acute intracranial pathology.
--- NOTE | ~2022-02-04 | XR_ITS ---
EXAMINATION: XR CHEST CLINICAL INFORMATION: Covid positive COMPARISON: Baseline 03/04/2021 TECHNIQUE: Portable 8:46 PM view of the chest was obtained. FINDINGS: Subtle peripheral patchy infiltrates noted suspicious for atypical infection. No pleural effusion. Heart and mediastinum normal. XR/XR chest 1V IMPRESSION: Subtle changes of atypical infection as above consistent with Covid 19 infection.
[2022-02-04 20:15] VITALS: BP 219/94; PULSE 84; RESP 18; TEMP 38.4; O2SAT 95; BMI 26.6
[2022-02-04 20:38] LABS: MANUAL DIFF FLAG NO
[2022-02-04 20:39] VITALS: BP 197/84; PULSE 78; RESP 18; O2SAT 94
[2022-02-04 20:39] LABS: Basophils Percent Auto 0.3 % (0-2); Eosinophils Percent Auto 0.2 % (0-4); Hematocrit 39.6 % (37.0-47.0); Hemoglobin 12.6 g/dl (12.0-16.0); Imm Gran Abs Auto 0.01 X10*3/uL (0.00-0.03); Imm Gran Pct Auto 0.2 % (0.0-0.4); Lymphocytes Absolute Auto 1.7 X10*3/uL (1.2-4.9); Lymphocytes Percent Auto 25.9 % (20-40); Mean Corpuscular HGB Conc 31.8 g/dl (31.0-35.0); Mean Corpuscular Hemoglobin 30.9 pg (27.0-33.0); Mean Corpuscular Volume 97.1 fL (80.0-98.0); Mean Platelet Volume 11.3 fL (9.4-12.3); Monocytes Absolute Auto 1.1 X10*3/uL (0.1-1.2); Monocytes Percent Auto 17.3 % (2-11); Neutrophils Absolute Auto 3.7 x10*3/uL (2.0-8.3); Neutrophils Percent Auto 56.1 % (45-73); Platelet Count 145 X10*3/uL (160-400); Red Blood Count 4.08 X10*6/uL (4.20-5.50); Red Cell Distribution Width 14.6 % (11.0-16.0); White Blood Count 6.5 X10*3/uL (4.8-10.8)
--- NOTE | 2022-02-04 20:43 | ED_ITS ---
HPI - General Adult General Chief complaint: General Medical Stated complaint: +COVID FROM SNF PER EMS Time Seen by Provider: 02/04/22 20:43 Source: patient and EMS Mode of arrival: EMS History of Present Illness HPI narrative: Patient history of hypertension hyperlipidemia essential tremors, TIAs, seizure disorder on Keppra came here as home test was positive for COVID patient does have advanced dementia unable to get details. Patient also has decreased oral intake and increased weakness feeling very cold and weak Related Data Home Medications Medication Instructions Recorded Confirmed acetaminophen 500 mg tablet 500 mg PO BID 01/05/21 12/26/21 (Tylenol Extra Strength) ascorbate calcium (vitamin C) 500 500 mg PO DAILY 02/01/21 12/26/21 mg tablet docusate sodium 100 mg capsule 100 mg PO BID 02/01/21 12/26/21 (Colace) vitamins A,C,A-behb-efxrmu 14,320 1 cap PO DAILY 02/01/21 12/26/21 unit-226 mg-200 unit capsule (PreserVision AREDS) carbidopa 25 mg-levodopa 100 mg 1 tab PO TID 04/08/21 12/26/21 tablet carbidopa ER 50 mg-levodopa 200 mg 1 tab PO BID 08/09/21 12/26/21 tablet,extended release Previous Rx's Medication Instructions Recorded irbesartan 300 mg tablet 300 mg PO DAILY 90 Days #90 tab 08/09/21 hydralazine 10 mg tablet 10 mg PO BID #180 tab 11/22/21 clopidogrel 75 mg tablet 75 mg PO DAILY #90 tab 01/13/22 felodipine 5 mg tablet,extended 5 mg PO DAILY #90 tab 01/13/22 release 24 hr atorvastatin 40 mg tablet 40 mg PO BEDTIME #90 tab 02/03/22 Allergies Allergy/AdvReac Type Severity Reaction Status Date / Time aspirin Allergy Severe angioedema Verified 12/26/21 11:41 Review of Systems Review of Systems: Yes Unobtainable due to mental status PMFSH Past Medical History Medical History Benign essential hypertension Carotid artery stenosis Difficulty walking Dysphagia Elevated CPK Impaired fasting glucose Overweight (BMI 25.0-29.9) Parkinson's Disease Pure hypercholesterolemia Seizure TIA (transient ischemic attack) Tremor Surgical History History of right-sided carotid endarterectomy Family History Family History Father No problems noted. Mother HTN (hypertension) Social History Social History Household Members: None and Other Housing: Assisted Living Facility Alcohol intake: never Patient Tobacco Use Status: Never used Tobacco Second Hand Smoke Exposure: No Advance Directives: No Advance Directives Information Provided: No service: No Current occupational status: retired Cognitive needs: Yes Hearing needs: Yes Vision needs: Yes Physical Exam ED Vital Signs: Vital Signs - 24 hr 02/04/22 20:15 02/04/22 20:39 02/04/22 21:20 Temperature 101.1 F H Pulse Rate 84 78 77 Respiratory Rate 18 18 17 Blood Pressure 219/94 H 197/84 H 179/76 H Pulse Oximetry 95 94 94 02/04/22 23:42 Temperature 98.2 F Pulse Rate 67 Respiratory Rate 18 Blood Pressure 182/75 H Pulse Oximetry 95 BMI result Body Mass Index 26.6 Appearance: Alert. And awake but confused. No acute distress. Eyes: PERRLA, ENT: Pharynx normal. Oral Mucosa moist Neck: Normal inspection. Neck supple. CVS: Normal heart rate and rhythm. Pulses normal. Respiratory: No respiratory distress. Equal air entry bilateral, no wheezing/rales/rhonchi Abdomen: Soft and nontender. Bowel sounds are present, no mass palpable, Skin: Skin warm and dry. Normal skin color. Normal skin turgor. Extremities: No lower extremity edema. No calf tenderness Neuro: Oriented X 3. No motor deficit. Medical Decision Making MDM Narrative Medical decision making narrative: Patient with COVID-19 with increased body symptoms with weakness lethargic poor oral intake saturating 95% on room air , temperature 101.1 on arrival chest x- ray with minimal infiltrate patient feeling too weak to go home lives alone will admit patient for further evaluation and supportive care will also get CT scan of the head as patient is very confused unable to reach the family Lab Data Lab results reviewed: Yes I reviewed the patient's lab results. Result diagrams: 02/04/22 20:23 02/04/22 20:23 Labs: Lab Results 0502/04/22 02/04/22 Range/Units 20:22 20:23 20:23 WBC 6.5 (4.8-10.8) X10*3/uL RBC 4.08 L (4.20-5.50) X10*6/uL Hgb 12.6 (12.0-16.0) g/dl Hct 39.6 (37.0-47.0) % MCV 97.1 (80.0-98.0) fL MCH 30.9 (27.0-33.0) pg MCHC 31.8 (31.0-35.0) g/dl RDW 14.6 (11.0-16.0) % Plt Count 145 L D (160-400) X10*3/uL MPV 11.3 (9.4-12.3) fL Immature Gran % (Auto) 0.2 (0.0-0.4) % Neut % (Auto) 56.1 (45-73) % Lymph % (Auto) 25.9 (20-40) % Kane % (Auto) 17.3 H (2-11) % Eos % (Auto) 0.2 (0-4) % Baso % (Auto) 0.3 (0-2) % Lymph # (Auto) 1.7 (1.2-4.9) X10*3/uL Kane # (Auto) 1.1 (0.1-1.2) X10*3/uL Eos # (Auto) 0.0 (0.0-0.4) X10*3/uL Baso # (Auto) 0.0 (0.0-0.2) X10*3/uL Abs Immat Gran (auto) 0.01 (0.00-0.03) X10*3/uL Absolute Neuts (auto) 3.7 (2.0-8.3) x10*3/uL Absolute Nucleated RBC 0.000 (0.0-0.012) X10*3/uL Nucleated RBC % (auto) 0.0 (0.0-0.2) /100WBC Sodium 142 (135-145) mmol/L Potassium 3.8 (3.3-5.1) mmol/L Chloride 105 (96-108) mmol/L Carbon Dioxide 26 (22-29) mmol/L Anion Gap 15 (12-20) BUN 15 (9-16) mg/dL Creatinine 0.70 (0.5-1.4) mg/dL Estim Creat Clear Calc 57.5 Estimated GFR > 60 Random Glucose 78 (60-115) mg/dL Lactic Acid 0.7 (0.5-2.0) mmol/L Calcium 9.2 (8.4-10.2) mg/dL Total Bilirubin 0.6 (0.0-1.0) mg/dL AST 19 (5-31) U/L ALT 12 (0-31) U/L Alkaline Phosphatase 96 (39-117) U/L Total Protein 6.7 (6.5-8.0) g/dL Albumin 4.0 (3.5-5.0) g/dL COVID-19 (ÁLVARO) (Negative) COVID-19 Clin Com Influenza Type A (DOROTHY) (Negative) Influenza Type B (DOROTHY) (Negative) Influenza A & B Note 02/04/22 02/04/22 Range/Units 23:45 23:45 WBC (4.8-10.8) X10*3/uL RBC (4.20-5.50) X10*6/uL Hgb (12.0-16.0) g/dl Hct (37.0-47.0) % MCV (80.0-98.0) fL MCH (27.0-33.0) pg MCHC (31.0-35.0) g/dl RDW (11.0-16.0) % Plt Count (160-400) X10*3/uL MPV (9.4-12.3) fL Immature Gran % (Auto) (0.0-0.4) % Neut % (Auto) (45-73) % Lymph % (Auto) (20-40) % Kane % (Auto) (2-11) % Eos % (Auto) (0-4) % Baso % (Auto) (0-2) % Lymph # (Auto) (1.2-4.9) X10*3/uL Kane # (Auto) (0.1-1.2) X10*3/uL Eos # (Auto) (0.0-0.4) X10*3/uL Baso # (Auto) (0.0-0.2) X10*3/uL Abs Immat Gran (auto) (0.00-0.03) X10*3/uL Absolute Neuts (auto) (2.0-8.3) x10*3/uL Absolute Nucleated RBC (0.0-0.012) X10*3/uL Nucleated RBC % (auto) (0.0-0.2) /100WBC Sodium (135-145) mmol/L Potassium (3.3-5.1) mmol/L Chloride (96-108) mmol/L Carbon Dioxide (22-29) mmol/L Anion Gap (12-20) BUN (9-16) mg/dL Creatinine (0.5-1.4) mg/dL Estim Creat Clear Calc Estimated GFR Random Glucose (60-115) mg/dL Lactic Acid (0.5-2.0) mmol/L Calcium (8.4-10.2) mg/dL Total Bilirubin (0.0-1.0) mg/dL AST (5-31) U/L ALT (0-31) U/L Alkaline Phosphatase (39-117) U/L Total Protein (6.5-8.0) g/dL Albumin (3.5-5.0) g/dL COVID-19 (ÁLVARO) Positive A (Negative) COVID-19 Clin Com See Note Influenza Type A (DOROTHY) Negative (Negative) Influenza Type B (DOROTHY) Negative (Negative) Influenza A & B Note See Note Discharge Plan Discharge Clinical Impression: COVID-19, Weakness Patient Disposition: Admitted As Inpatient
[2022-02-04 20:50] LABS: Lactic Acid 0.7 mmol/L (0.5-2.0)
[2022-02-04 20:55] LABS: Alanine Aminotransferase 12 U/L (0-31); Alkaline Phosphatase 96 U/L (39-117); Anion Gap 15 (12-20); Aspartate Amino Transferase 19 U/L (5-31); Bilirubin Total 0.6 mg/dL (0.0-1.0); Blood Urea Nitrogen 15 mg/dL (9-16); Calcium 9.2 mg/dL (8.4-10.2); Carbon Dioxide 26 mmol/L (22-29); Chloride 105 mmol/L (96-108); Creatinine Clr Calc Pharmacy 57.5; Estimated Glomerular Filt Rate > 60; Glucose Random 78 mg/dL (60-115); Potassium 3.8 mmol/L (3.3-5.1); Sodium 142 mmol/L (135-145); Total Protein 6.7 g/dL (6.5-8.0)
[2022-02-04] MEDS: Acetaminophen 325 MG TABLET 650 MG PO (21:17)
[2022-02-04 21:20] VITALS: BP 179/76; PULSE 77; RESP 17; O2SAT 94
[2022-02-04] MEDS: 0.9 % Sodium Chloride 1,000 ML 999 ML IV (21:20)
[2022-02-04 23:42] VITALS: BP 182/75; PULSE 67; RESP 18; TEMP 36.8; O2SAT 95
[2022-02-04] MEDS: dexAMETHasone sod phosphate 4 MG/ML VIAL 6 MG IVPUSH (23:50)
--- NOTE | 2022-02-05 | ECG_ITS ---
Test Reason : qt Blood Pressure : / mmHG Vent. Rate : 070 BPM Atrial Rate : 070 BPM P-R Int : 142 ms QRS Dur : 098 ms QT Int : 440 ms P-R-T Axes : 043 010 052 degrees QTc Int : 475 ms Sinus rhythm with Premature atrial complexes Otherwise normal ECG When compared with ECG of 20-JAN-2022 13:44, Premature atrial complexes are now Present Referred By: Lolly Menjivar Electronically Signed By:ZACHARY CURRIE MD
[2022-02-05 00:07] LABS: COVID-19 Test Positive (Negative); IDNOW Serial# 16C4AD1C
[2022-02-05 00:08] LABS: Influenza A Negative (Negative); Influenza B2 Negative (Negative)
--- NOTE | 2022-02-05 04:23 | P.HPHOSP_ITS ---
History of Present Illness Date of Service: 02/05/22 Chief Complaint: Confusion, COVID positive This is an 86-year-old female with past medical history of HTN, CAD, dysphagia, Parkinson's disease, HLD, seizure disorder, history of TIA who presents from home after somebody called EMS for COVID positive status. It is unclear who called the ambulance, and why but per documentation from ER as well as ED physician, patient had a positive COVID test at home and therefore was brought into the hospital. Patient is now alert to self and place, but does not know who called ambulance and or why she is in the hospital. She does endorse Covert positive status that she discovered while home. Per EMS patient was reported to have decreased oral intake, weakness, but otherwise no other information can be obtained. On her arrival to the ED patient was documented to have been confused, unresponsive to noxious stimuli. Patient herself denies any chest pain, no shortness of breath, no cough, no abdominal pain nausea or vomiting, no diarrhea constipation, no urinary symptoms and no lower extremity edema. Vitals were noted to be temp of 101.1 degrees, blood pressure of 219/94, satting 95% on room air Labs were significant for positive COVID-19 Chest x-ray shows subtle changes of atypical infection consistent with COVID-19 Patient will be admitted for further evaluation Review of Systems Review of Systems: Yes all other systems are reviewed and are negative [facility] Medical History Benign essential hypertension Carotid artery stenosis Difficulty walking Dysphagia Elevated CPK Impaired fasting glucose Overweight (BMI 25.0-29.9) Parkinson's Disease Pure hypercholesterolemia Seizure TIA (transient ischemic attack) Tremor Family History Father No problems noted. Mother HTN (hypertension) Surgical History History of right-sided carotid endarterectomy Social History Household Members: None and Other Housing: Assisted Living Facility Alcohol intake: never Patient Tobacco Use Status: Never used Tobacco Second Hand Smoke Exposure: No Advance Directives: No Advance Directives Information Provided: No service: No Current occupational status: retired Cognitive needs: Yes Hearing needs: Yes Vision needs: Yes Meds Allergies Allergy/AdvReac Type Severity Reaction Status Date / Time aspirin Allergy Severe angioedema Verified 12/26/21 11:41 Home Medications Medication Instructions Recorded Confirmed Last Taken Type acetaminophen 500 mg tablet 500 mg PO BID 01/05/21 02/05/22 Unknown History (Tylenol Extra Strength) ascorbate calcium (vitamin C) 500 500 mg PO DAILY 02/01/21 02/05/22 Unknown History mg tablet docusate sodium 100 mg capsule 100 mg PO BID 02/01/21 02/05/22 Unknown History (Colace) vitamins A,C,K-zidz-vnnjdf 14,320 1 cap PO DAILY 02/01/21 02/05/22 Unknown History unit-226 mg-200 unit capsule (PreserVision AREDS) carbidopa 25 mg-levodopa 100 mg 1 tab PO TID 04/08/21 02/05/22 Unknown History tablet carbidopa ER 50 mg-levodopa 200 mg 1 tab PO BID 08/09/21 02/05/22 Unknown History tablet,extended release levetiracetam 250 mg tablet 1 tab PO BID 02/05/22 02/05/22 Unknown History Physical Exam Vital Signs and Narrative: Vital Signs: Last Vital Signs Temp 98.2 F 02/04/22 23:42 Pulse 67 02/04/22 23:42 Resp 18 02/04/22 23:42 BP 182/75 H 02/04/22 23:42 Pulse Ox 95 02/04/22 23:42 BMI result Body Mass Index 26.6 Const: Other: Patient is now awake, alert, oriented to cells and place, but still confused about the events that brought her to the hospital General: cooperative and no acute distress Eyes: General: appearance normal, both eyes and all related structures Pupils: Equal, round and reactive pupils present Resp: Other: Crackles bilaterally Effort & Inspection: normal respiratory effort Cardio: Rate: regular rate Rhythm: regular rhythm GI: Palpation (GI): Soft to palpation Auscultation: normal bowel sounds Skin: General skin exam: no rashes or lesions noted Neuro: Cranial nerves: Yes Equal, round and reactive pupils present Extrem: General: Yes normal to inspection and Yes no pedal edema Results Labs CBC and Chem 7: 02/04/22 20:23 02/04/22 20:23 Labs: Laboratory Results - last 24 hr 02/04/22 02/04/22 02/04/22 20:22 20:23 20:23 MCV 97.1 MCH 30.9 MCHC 31.8 RDW 14.6 Plt Count 145 L D MPV 11.3 Immature Gran % (Auto) 0.2 Neut % (Auto) 56.1 Lymph % (Auto) 25.9 [place] % (Auto) 17.3 H Eos % (Auto) 0.2 Baso % (Auto) 0.3 Lymph # (Auto) 1.7 [place] # (Auto) 1.1 Eos # (Auto) 0.0 Baso # (Auto) 0.0 Abs Immat Gran (auto) 0.01 Absolute Neuts (auto) 3.7 Absolute Nucleated RBC 0.000 Nucleated RBC % (auto) 0.0 Anion Gap 15 Estim Creat Clear Calc 57.5 Estimated GFR > 60 Random Glucose 78 Lactic Acid 0.7 Calcium 9.2 Total Bilirubin 0.6 AST 19 ALT 12 Alkaline Phosphatase 96 Total Protein 6.7 Albumin 4.0 COVID-19 (ÁLVARO) COVID-19 Clin Com Influenza Type A (DOROTHY) Influenza Type B (DOROTHY) Influenza A & B Note 02/04/22 02/04/22 23:45 23:45 MCV MCH MCHC RDW Plt Count MPV Immature Gran % (Auto) Neut % (Auto) Lymph % (Auto) [place] % (Auto) Eos % (Auto) Baso % (Auto) Lymph # (Auto) [place] # (Auto) Eos # (Auto) Baso # (Auto) Abs Immat Gran (auto) Absolute Neuts (auto) Absolute Nucleated RBC Nucleated RBC % (auto) Anion Gap Estim Creat Clear Calc Estimated GFR Random Glucose Lactic Acid Calcium Total Bilirubin AST ALT Alkaline Phosphatase Total Protein Albumin COVID-19 (ÁLVARO) Positive A COVID-19 Clin Com See Note Influenza Type A (DOROTHY) Negative Influenza Type B (DOROTHY) Negative Influenza A & B Note See Note Imaging Radiologist's Impressions: Impressions Chest X-Ray 02/04/22 20:52 IMPRESSION: Subtle changes of atypical infection as above consistent with Covid [address] 02/05/22 01:38 IMPRESSION: No acute intracranial pathology. Assessment and Plan (1) Encephalopathy: Status: Acute (2) COVID-19: Status: Acute (3) Weakness: Status: Acute (4) Hypertensive urgency: Status: Acute Plan 86-year-old female with past medical history of Parkinson's disease, TIA who presents to the hospital with an episode of altered mental status # encephalopathy - TIA versus COVID encephalopathy - on arrival patient was also noted to have difficulty elevated high blood pressure 219 which may have contributed to her encephalopathy - patient has no neurological deficits but is definitely confused around the events that preceded her arrival to the ED - she has underlying dementia and Parkinson's disease - head CT negative for any acute abnormality - at this time will attribute to COVID encephalopathy, no hypoxia noted - if continues to be confused, consider MRI # COVID-19 infection - no hypoxia - monitor respiratory status # hypertensive urgency - on arrival blood pressure was noted to be 129 systolic - improved spontaneously - continue home medications # reported weakness - likely secondary to acute infection with COVID-19 - consider PT OT prior to discharge # Parkinson's disease - continue carbidopa levodopa It appears the patient is independent at baseline DVT prophylaxis: Heparin subQ Quality Stroke Does the patient have a stroke diagnosis?: No VTE Prior VTE?: No VTE Risk Level:: Medical - moderate - high VTE Device Contraindication: Treatment Not Indicated VTE Drug Contraindication: N/A - Med Ordered
[2022-02-05 04:52] VITALS: BP 171/77; PULSE 68; RESP 16; O2SAT 94
[2022-02-05 07:05] LABS: Appearance Urine CLEAR; Color Urine YELLOW; Glucose Urine UA NEG (NEG); Leukocyte Esterase Urine NEG (NEG); Nitrite Urine NEG (NEG); Specific Gravity - Urine 1.015 (1.005-1.025); UACC Culture Trigger NO; Urine Blood NEG (NEG); Urine Ketones 15 MG/DL (NEG); Urine Protein 1+ MG/DL (NEG-TRACE)
--- NOTE | 2022-02-05 07:05 | PHA.MEDREC ---
Pharmacy Consult ? Medication Reconciliation Pharmacy has completed the medication reconciliation. Completed by nursing verified by pharmacy. Thanks Jesus
[2022-02-05 07:06] LABS: Anion Gap 19 (12-20); Blood Urea Nitrogen 11 mg/dL (9-16); Carbon Dioxide 19 mmol/L (22-29); Chloride 107 mmol/L (96-108); Creatinine Clr Calc Pharmacy 63.9; Estimated Glomerular Filt Rate > 60; Glucose Random 120 mg/dL (60-115); Potassium 4.1 mmol/L (3.3-5.1); Sodium 141 mmol/L (135-145)
[2022-02-05 07:14] LABS: Mucus Urine TRACE /LPF; RBC Urine 0 /HPF (0); Squamous Epithelial Cell Urine TRACE /LPF; WBC Urine 0 /HPF (0-4)
[2022-02-05 08:00] LABS: Basophils Percent Auto 0.2 % (0-2); Hematocrit 41.5 % (37.0-47.0); Hemoglobin 13.3 g/dl (12.0-16.0); Imm Gran Abs Auto 0.01 X10*3/uL (0.00-0.03); Imm Gran Pct Auto 0.2 % (0.0-0.4); Lymphocytes Absolute Auto 1.1 X10*3/uL (1.2-4.9); Lymphocytes Percent Auto 21.8 % (20-40); Mean Corpuscular Hemoglobin 31.1 pg (27.0-33.0); Mean Corpuscular Volume 97.2 fL (80.0-98.0); Mean Platelet Volume 11.2 fL (9.4-12.3); Monocytes Absolute Auto 0.3 X10*3/uL (0.1-1.2); Monocytes Percent Auto 5.3 % (2-11); Neutrophils Absolute Auto 3.7 x10*3/uL (2.0-8.3); Neutrophils Percent Auto 72.5 % (45-73); Platelet Count 125 X10*3/uL (160-400); Red Blood Count 4.27 X10*6/uL (4.20-5.50); Red Cell Distribution Width 14.4 % (11.0-16.0); White Blood Count 5.1 X10*3/uL (4.8-10.8)
[2022-02-05 08:19] VITALS: BP 137/69; PULSE 77; RESP 18; O2SAT 96
[2022-02-05 08:53] VITALS: BP 161/65; PULSE 78; RESP 19; O2SAT 96
[2022-02-05] MEDS: amLODIPine Besylate 5 MG TABLET PO (08:59)
[2022-02-05] MEDS: hydrALAZINE HCl 10 MG TABLET PO ×2 (08:59→20:26)
[2022-02-05] MEDS: Docusate Sodium 100 MG CAPSULE PO ×2 (08:59→20:24)
[2022-02-05] MEDS: Clopidogrel Bisulfate 75 MG TABLET PO (09:00)
[2022-02-05] MEDS: levETIRAcetam 250 MG TABLET PO ×2 (09:00→20:23)
[2022-02-05] MEDS: Ascorbic Acid 500 MG TABLET PO (09:00)
[2022-02-05] MEDS: Carbidopa/Levodopa 25/100 TABLET 1 TAB PO ×3 (09:00→20:23)
[2022-02-05] MEDS: 0.9 % Sodium Chloride Flush 3 ML SYRINGE IVFLUSH ×2 (09:01→20:29)
[2022-02-05] MEDS: Enoxaparin Sodium 40 MG/0.4 ML SYRINGE SUBCUT (09:01)
[2022-02-05] MEDS: Valsartan 160 MG TABLET PO (09:15)
[2022-02-05] MEDS: Carbidopa/Levodopa CR 50/200 TABLET.ER 1 TAB PO ×2 (09:15→20:26)
--- NOTE | 2022-02-05 10:10 | PM.EVENT ---
Event Note Date of Service: 02/05/22 Event Note: Personally seen and examined, here with covid + no hypoxia but confused, presumed covid related acute metabolic encephalopathy. Supportive care at this time.
--- NOTE | 2022-02-05 12:13 | PC.NURSE ---
PT ALERT, VSS, AFEBRILE, SHE DENIES SOB/HEAD. NO N/V/D. DENIES PAIN. MEDS GIVEN DOCUMENTED. REQUESTED BEDPAN. HER DAUGHTER WAS UPDATED ON PLAN OF CARE. NO COMPLAINTS.
[2022-02-05 12:28] VITALS: BP 120/57; PULSE 78; RESP 78; TEMP 36.8; O2SAT 93
[2022-02-05 16:00] VITALS: PULSE 67; RESP 20; TEMP 36.7; O2SAT 97
[2022-02-05 16:46] VITALS: BMI 26.2
[2022-02-05 19:21] VITALS: BP 117/55; PULSE 68; RESP 20; TEMP 36.6; O2SAT 95
[2022-02-05] MEDS: Atorvastatin Calcium 40 MG TABLET PO (20:24)
[2022-02-06] VITALS (7 sets, daily range): BP systolic 138–175; BP diastolic 61–76; PULSE 58–73; RESP 18–20; TEMP 36.2–37.1; O2SAT 97–99
[2022-02-06] MEDS: 0.9 % Sodium Chloride Flush 3 ML SYRINGE IVFLUSH ×4 (03:33→22:14)
--- NOTE | 2022-02-06 09:04 | MHC.CM.PN ---
Patient is here with Covid Encephalopathy; CM spoke with Daughter/HCP/Marti @ [phone] and addressed BRYAN with her(original to be emailed to Marti at [email or web address] and a copy has been placed on the chart.Patient is from [facility] and she has a Care Team, with a Weight Calculator/Jacki Barcenas (patient receives 18 hours/day of services and is never alone). Home/resume said services is the goal but should STR be recommended, [facility] is first choice. CM has initiated and will follow for dc planning. Patient has received 2 Covid/Moderna vax and 2 Boosters and her PCP is DR. Ming Piper.
[2022-02-06] MEDS: Enoxaparin Sodium 40 MG/0.4 ML SYRINGE SUBCUT (09:16)
[2022-02-06] MEDS: Valsartan 160 MG TABLET PO (09:16)
[2022-02-06] MEDS: hydrALAZINE HCl 10 MG TABLET PO ×2 (09:16→22:14)
[2022-02-06] MEDS: levETIRAcetam 250 MG TABLET PO ×2 (09:17→22:14)
[2022-02-06] MEDS: Carbidopa/Levodopa 25/100 TABLET 1 TAB PO ×3 (09:17→22:14)
[2022-02-06] MEDS: Ascorbic Acid 500 MG TABLET PO (09:17)
[2022-02-06] MEDS: Clopidogrel Bisulfate 75 MG TABLET PO (09:17)
[2022-02-06] MEDS: amLODIPine Besylate 5 MG TABLET PO (09:17)
[2022-02-06] MEDS: Carbidopa/Levodopa CR 50/200 TABLET.ER 1 TAB PO ×2 (09:17→22:14)
[2022-02-06] MEDS: Docusate Sodium 100 MG CAPSULE PO ×2 (09:17→22:14)
--- NOTE | 2022-02-06 10:17 | HO.PM.IMPN ---
Subjective Subjective Date of Service: 02/06/22 Review of Systems Follow up covid Still with junky cough No pain, nausea or vomiting Physical Exam Vital Signs: Vital Signs: Last Vital Signs Temp 98.3 F 02/06/22 07:42 Pulse 62 02/06/22 07:42 Resp 19 02/06/22 07:42 BP 175/76 H 02/06/22 07:42 Pulse Ox 97 02/06/22 07:42 BMI result Body Mass Index 26.2 Appearing in no acute distress lung sounds rhonchi heart regular rate rhythm, clear S1, S2 positive bowel sounds, abdomen is soft, nontender neuro patient is alert x3, no focal deficits Objective Data Active Medications Acetaminophen (Acetaminophen 325 Mg Tablet) 650 mg PO Q6H PRN PRN Reason: Pain, Mild (Pain Scale 1-3) Amlodipine Besylate (Amlodipine Besylate 5 Mg Tablet) 5 mg PO DAILY [facility] Last Admin: 02/06/22 09:17 Dose: 5 mg Documented by: CHUCK Ascorbic Acid (Ascorbic Acid 500 Mg Tablet) 500 mg PO DAILY [facility] Last Admin: 02/06/22 09:17 Dose: 500 mg Documented by: CHUCK Atorvastatin Calcium (Atorvastatin Calcium 40 Mg Tablet) 40 mg PO BEDTIME [facility] Last Admin: 02/05/22 20:24 Dose: 40 mg Documented by: NELLY Carbidopa/Levodopa (Carbidopa/Levodopa 25/100 Tablet) 1 tab PO TID [facility] Last Admin: 02/06/22 09:17 Dose: 1 tab Documented by: CHUCK Carbidopa/Levodopa (Carbidopa/Levodopa Cr 50/200 Tablet.Er) 1 tab PO BID [facility] Last Admin: 02/06/22 09:17 Dose: 1 tab Documented by: CHUCK Clopidogrel Bisulfate (Clopidogrel Bisulfate 75 Mg Tablet) 75 mg PO DAILY [facility] Last Admin: 02/06/22 09:17 Dose: 75 mg Documented by: CHUCK Docusate Sodium (Docusate Sodium 100 Mg Capsule) 100 mg PO BID [facility] Last Admin: 02/06/22 09:17 Dose: 100 mg Documented by: CHUCK Enoxaparin Sodium (Enoxaparin Sodium 40 Mg/0.4 Ml Syringe) 40 mg SUBCUT Q24H [facility] Last Admin: 02/06/22 09:16 Dose: 40 mg Documented by: CHUCK Hydralazine HCl (Hydralazine Hcl 10 Mg Tablet) 10 mg PO BID [facility]; Protocol Last Admin: 02/06/22 09:16 Dose: 10 mg Documented by: CHUCK Levetiracetam (Levetiracetam 250 Mg Tablet) 250 mg PO BID [facility] Last Admin: 02/06/22 09:17 Dose: 250 mg Documented by: CHUCK Ondansetron HCl (Ondansetron Hcl 4 Mg/2 Ml Vial) 4 mg IVPUSH Q8H PRN PRN Reason: Nausea and Vomiting Sodium Chloride (0.9 % Sodium Chloride Flush 3 Ml Syringe) 3 ml IVFLUSH QSHIFT [facility] Last Admin: 02/06/22 09:16 Dose: 3 ml Documented by: CHUCK Valsartan (Valsartan 160 Mg Tablet) 160 mg PO DAILY [facility] Last Admin: 02/06/22 09:16 Dose: 160 mg Documented by: CHUCK Labs CBC & Chem 7: 02/05/22 07:27 02/05/22 06:08 Microbiology Microbiology Results: Microbiology 02/04/22 20:27 Blood Culture - Preliminary Blood - Venous No growth after 24 hours. 02/04/22 20:27 Blood Culture - Preliminary Blood - Venous No growth after 24 hours. Assessment and Plan (1) Encephalopathy: Status: Acute Plan 86-year-old female with past medical history of Parkinson's disease, TIA who presents to the hospital with an episode of altered mental status Toxic metabolic Encephalopathy, acute TIA versus COVID encephalopathy, seems more likely covid encephalopathy with weakness on arrival patient was also noted to have difficulty elevated high blood pressure 219 which may have contributed to her encephalopathy patient has no neurological deficits but is definitely confused around the events that preceded her arrival to the ED, she has underlying dementia and Parkinson's disease head CT negative for any acute abnormality at this time will attribute to COVID encephalopathy, no hypoxia noted if continues to be confused, consider MRI PT eval COVID-19 infection no hypoxia, not requiring oxygen but has junky cough adde mucinex monitor respiratory status Hypertensive urgency improved spontaneously continue home medications Parkinson's disease, chronic continue carbidopa levodopa DVT prophylaxis:? Heparin subQ Attending Dr. Staton Full code Patient requires continued hospitalization For symptoms of COVID-19 including toxic metabolic encephalopathy requiring frequent neurological monitoring Quality Stroke Does the patient have a stroke diagnosis?: No VTE Prior VTE?: No VTE Risk Level:: Medical - moderate - high VTE Device Contraindication: Treatment Not Indicated VTE Drug Contraindication: N/A - Med Ordered
[2022-02-06] MEDS: Atorvastatin Calcium 40 MG TABLET PO (22:14)
[2022-02-06] MEDS: guaiFENesin LA 600 MG TAB.ER.12H PO (22:14)
[2022-02-07] VITALS (7 sets, daily range): BP systolic 138–178; BP diastolic 65–80; PULSE 61–73; RESP 18–20; TEMP 36.5–37.3; O2SAT 94–99
[2022-02-07] MEDS: Enoxaparin Sodium 40 MG/0.4 ML SYRINGE SUBCUT (08:47)
[2022-02-07] MEDS: Clopidogrel Bisulfate 75 MG TABLET PO (08:48)
[2022-02-07] MEDS: 0.9 % Sodium Chloride Flush 3 ML SYRINGE IVFLUSH (08:48)
[2022-02-07] MEDS: Ascorbic Acid 500 MG TABLET PO (08:48)
[2022-02-07] MEDS: guaiFENesin LA 600 MG TAB.ER.12H PO (08:48)
[2022-02-07] MEDS: Docusate Sodium 100 MG CAPSULE PO (08:48)
[2022-02-07] MEDS: Valsartan 160 MG TABLET PO (08:48)
[2022-02-07] MEDS: hydrALAZINE HCl 10 MG TABLET PO ×2 (08:48→21:35)
[2022-02-07] MEDS: amLODIPine Besylate 5 MG TABLET PO (08:48)
[2022-02-07] MEDS: Carbidopa/Levodopa CR 50/200 TABLET.ER 1 TAB PO (08:48)
[2022-02-07] MEDS: Carbidopa/Levodopa 25/100 TABLET 1 TAB PO (08:49)
[2022-02-07] MEDS: levETIRAcetam 250 MG TABLET PO ×2 (08:49→21:35)
[2022-02-07 10:39] LABS: Anion Gap 13 (12-20); Blood Urea Nitrogen 13 mg/dL (9-16); Calcium 8.8 mg/dL (8.4-10.2); Carbon Dioxide 22 mmol/L (22-29); Chloride 110 mmol/L (96-108); Creatinine Clr Calc Pharmacy 60.6; Estimated Glomerular Filt Rate > 60; Glucose Random 135 mg/dL (60-115); Potassium 4.5 mmol/L (3.3-5.1); Sodium 140 mmol/L (135-145)
--- NOTE | 2022-02-07 14:51 | P.PNIM_ITS ---
Subjective Subjective Date of Service: 02/07/22 Review of Systems Follow up covid Still with junky cough but better No pain, nausea or vomiting Physical Exam Vital Signs: Vital Signs: Last Vital Signs Temp 97.7 F 02/07/22 11:17 Pulse 70 02/07/22 11:17 Resp 20 02/07/22 11:17 BP 150/72 H 02/07/22 11:17 Pulse Ox 99 02/07/22 11:17 BMI result Body Mass Index 26.2 Appearing in no acute distress lung sounds are clear to auscultation, rhonchi heart regular rate rhythm, clear S1, S2 positive bowel sounds, abdomen is soft, nontender neuro patient is alert x3, no focal deficits Objective Data Active Medications Acetaminophen (Acetaminophen 325 Mg Tablet) 650 mg PO Q6H PRN PRN Reason: Pain, Mild (Pain Scale 1-3) Amlodipine Besylate (Amlodipine Besylate 5 Mg Tablet) 5 mg PO DAILY COUNT [facility]CLUDES [facility] Last Admin: 02/07/22 08:48 Dose: 5 mg Documented by: CHUCK Ascorbic Acid (Ascorbic Acid 500 Mg Tablet) 500 mg PO DAILY [facility] Last Admin: 02/07/22 08:48 Dose: 500 mg Documented by: CHUCK Atorvastatin Calcium (Atorvastatin Calcium 40 Mg Tablet) 40 mg PO BEDTIME [facility]CLUDES [facility] Last Admin: 02/06/22 22:14 Dose: 40 mg Documented by: ADINA Carbidopa/Levodopa (Carbidopa/Levodopa 25/100 Tablet) 1 tab PO TID COUNT [facility]CLUDES [facility] Last Admin: 02/07/22 08:49 Dose: 1 tab Documented by: CHUCK Carbidopa/Levodopa (Carbidopa/Levodopa Cr 50/200 Tablet.Er) 1 tab PO BID [facility]CLUDES [facility] Last Admin: 02/07/22 08:48 Dose: 1 tab Documented by: CHUCK Clopidogrel Bisulfate (Clopidogrel Bisulfate 75 Mg Tablet) 75 mg PO DAILY [facility] Last Admin: 02/07/22 08:48 Dose: 75 mg Documented by: CHUCK Docusate Sodium (Docusate Sodium 100 Mg Capsule) 100 mg PO BID COUNT [facility]CLUDES [facility] Last Admin: 02/07/22 08:48 Dose: 100 mg Documented by: CHUCK Enoxaparin Sodium (Enoxaparin Sodium 40 Mg/0.4 Ml Syringe) 40 mg SUBCUT Q24H COUNT [facility]CLUDES [facility] Last Admin: 02/07/22 08:47 Dose: 40 mg Documented by: CHUCK Guaifenesin (Guaifenesin La 600 Mg Tab.Er.12h) 600 mg PO BID COUNT [facility]CLUDES [facility] Last Admin: 02/07/22 08:48 Dose: 600 mg Documented by: CHUCK Hydralazine HCl (Hydralazine Hcl 10 Mg Tablet) 10 mg PO BID COUNT [facility]CLUD[facility]; Protocol Last Admin: 02/07/22 08:48 Dose: 10 mg Documented by: CHUCK Levetiracetam (Levetiracetam 250 Mg Tablet) 250 mg PO BID COUNT [facility]CLUD[facility] Last Admin: 02/07/22 08:49 Dose: 250 mg Documented by: CHUCK Ondansetron HCl (Ondansetron Hcl 4 Mg/2 Ml Vial) 4 mg IVPUSH Q8H PRN PRN Reason: Nausea and Vomiting Sodium Chloride (0.9 % Sodium Chloride Flush 3 Ml Syringe) 3 ml IVFLUSH QSHIFT COUNT INCLUDES [facility] Last Admin: 02/07/22 08:48 Dose: 3 ml Documented by: CHUCK Valsartan (Valsartan 160 Mg Tablet) 160 mg PO DAILY COUNT [facility]CLUD[facility] Last Admin: 02/07/22 08:48 Dose: 160 mg Documented by: CHUCK Labs CBC & Chem 7: 02/05/22 07:27 02/07/22 10:06 Labs: Laboratory Results - last 24 hr 02/07/22 10:06 Anion Gap 13 Estim Creat Clear Calc 60.6 Estimated GFR > 60 Random Glucose 135 H Calcium 8.8 Microbiology Microbiology Results: Microbiology 02/04/22 20:27 Blood Culture - Preliminary Blood - Venous No growth after 48 hours. 02/04/22 20:27 Blood Culture - Preliminary Blood - Venous No growth after 48 hours. Assessment and Plan (1) Encephalopathy: Status: Acute Plan 86-year-old female with past medical history of Parkinson's disease, TIA who presents to the hospital with an episode of altered mental status Toxic metabolic Encephalopathy, acute covid encephalopathy with weakness on arrival patient was also noted to have difficulty elevated high blood pressure 219 which may have contributed to her encephalopathy patient has no neurological deficits but is definitely confused around the events that preceded her arrival to the ED, she has underlying dementia and Parkinson's disease head CT negative for any acute abnormality PT eval rec home COVID-19 infection no hypoxia, not requiring oxygen but has junky cough added mucinex monitor respiratory status Hypertensive urgency improved spontaneously continue home medications Parkinson's disease, chronic continue carbidopa levodopa DVT prophylaxis:? Heparin subQ Attending Dr. Staton Full code DISPO Likely dc tomorrow if stable, has 24 hour care Patient requires continued hospitalization For symptoms of COVID-19 including toxic metabolic encephalopathy requiring frequent neurological monitoring Quality Stroke Does the patient have a stroke diagnosis?: No VTE Prior VTE?: No VTE Risk Level:: Medical - moderate - high VTE Device Contraindication: Treatment Not Indicated VTE Drug Contraindication: N/A - Med Ordered
--- NOTE | 2022-02-07 14:55 | P.DS_ITS ---
DS: Providers Provider Date of admission: 02/05/22 04:21 Primary care physician: Unknown Physician DS: Diagnosis Discharge Diagnosis (1) Encephalopathy: Status: Acute DS: Summary Hospital Course Hospital Course: HP as per admitting provider This is an 86-year-old female with past medical history of HTN, CAD, dysphagia, Parkinson's disease, HLD, seizure disorder, history of TIA who presents from home after somebody called EMS for COVID positive status.? It is unclear who called the ambulance, and why but per documentation from ER as well as ED physician, patient had a positive COVID test at home and therefore was brought into the hospital.? Patient is now alert to self and place, but does not know who called ambulance and or why she is in the hospital.? She does endorse Covert positive status that she discovered while home.? Per EMS patient was reported to have decreased oral intake, weakness, but otherwise no other information can be obtained.? On her arrival to the ED patient was documented to have been confused, unresponsive to noxious stimuli. Patient herself denies any chest pain, no shortness of breath, no cough, no abdominal pain nausea or vomiting, no diarrhea constipation, no urinary symptoms and no lower extremity edema. Vitals were noted to be temp of 101.1 degrees, blood pressure of 219/94, satting 95% on room air Labs were significant for positive COVID-19 Chest x-ray shows subtle changes of atypical infection consistent with COVID-19 Patient will be admitted for further evaluation Toxic metabolic Encephalopathy, acute covid encephalopathy with weakness, resolved on arrival patient was also noted to have difficulty elevated high blood pressure 219 which may have contributed to her encephalopathy patient has no neurological deficits but is definitely confused around the events that preceded her arrival to the ED, she has underlying dementia and P arkinson's disease head CT negative for any acute abnormality PT eval rec home COVID-19 infection no hypoxia, not requiring oxygen but has junky cough added mucinex, may use at home monitor respiratory status Hypertensive urgency improved spontaneously continue home medications Parkinson's disease, chronic continue carbidopa levodopa Time Spent with Patient Time attestation: Total time spent providing and/or coordinating discharge services: Physical Exam Vital Signs: Vital Signs: Last Vital Signs Temp 97.7 F 02/07/22 11:17 Pulse 70 02/07/22 11:17 Resp 20 02/07/22 11:17 BP 150/72 H 02/07/22 11:17 Pulse Ox 99 02/07/22 11:17 BMI result Body Mass Index 26.2 DS: Data Data Completed and Pending Labs on day of discharge: Laboratory Results - last 24 hr 02/07/22 10:06 Sodium 140 Potassium 4.5 Chloride 110 H Carbon Dioxide 22 Anion Gap 13 BUN 13 Creatinine 0.66 Estim Creat Clear Calc 60.6 Estimated GFR > 60 Random Glucose 135 H Calcium 8.8 Preliminary micro results at discharge 02/04/22 20:27 Blood Culture - Preliminary Blood - Venous No growth after 48 hours. 02/04/22 20:27 Blood Culture - Preliminary Blood - Venous No growth after 48 hours. Discharge Plan Discharge Patient Disposition: Home, Self-Care Discharge Diagnosis: Covid 19, encephalopathy Referrals: Physician,Unknown J [Primary Care Provider] - 1 Week Discharge Medications: Continued hydralazine 10 mg tablet 10 mg PO BID Qty: 180 0RF felodipine 5 mg tablet extended release 24 hr 5 mg PO DAILY Qty: 90 0RF clopidogrel 75 mg tablet 75 mg PO DAILY Qty: 90 0RF atorvastatin 40 mg tablet 40 mg PO BEDTIME Qty: 90 0RF levetiracetam 250 mg tablet 1 tab PO BID 0RF irbesartan 300 mg tablet 300 mg PO DAILY 90 Days Qty: 90 1RF carbidopa-levodopa 50-200 mg tablet extended release 1 tab PO BID 0RF acetaminophen [Tylenol Extra Strength] 500 mg tablet 500 mg PO BID 0RF carbidopa-levodopa 25-100 mg tablet 1 tab PO TID 0RF docusate sodium [Colace] 100 mg capsule 100 mg PO BID 0RF ascorbate calcium (vitamin C) 500 mg tablet 500 mg PO DAILY 0RF PreserVision AREDS [id number] capsule 1 cap PO DAILY 0RF Diet: advance to usual diet Activity on Discharge: As tolerated Stand Alone Forms: Patient Portal Discharge page Care Plan Goals: complete resolution of symptoms Health Concerns: COVID-19 with COVID encephalopathy Plan of Treatment: Follow-up with primary care provider as needed Assessment: see discharge summary
[2022-02-08 04:00] VITALS: BP 192/86; PULSE 72; RESP 20; TEMP 36.7; O2SAT 97
[2022-02-08 08:00] VITALS: BP 182/86; PULSE 68; RESP 17; TEMP 37.1; O2SAT 94
[2022-02-08] MEDS: Valsartan 160 MG TABLET PO (09:03)
[2022-02-08] MEDS: amLODIPine Besylate 5 MG TABLET PO (09:03)
[2022-02-08] MEDS: Carbidopa/Levodopa CR 50/200 TABLET.ER 1 TAB PO (09:03)
[2022-02-08] MEDS: Clopidogrel Bisulfate 75 MG TABLET PO (09:03)
[2022-02-08] MEDS: levETIRAcetam 250 MG TABLET PO ×2 (09:04→22:46)
[2022-02-08] MEDS: Ascorbic Acid 500 MG TABLET PO (09:04)
[2022-02-08] MEDS: hydrALAZINE HCl 10 MG TABLET PO (09:04)
[2022-02-08] MEDS: Carbidopa/Levodopa 25/100 TABLET 1 TAB PO ×2 (09:05→16:05)
[2022-02-08] MEDS: Docusate Sodium 100 MG CAPSULE PO (09:05)
[2022-02-08] MEDS: guaiFENesin LA 600 MG TAB.ER.12H PO (09:05)
[2022-02-08] MEDS: Enoxaparin Sodium 40 MG/0.4 ML SYRINGE SUBCUT (09:07)
[2022-02-08 11:13] VITALS: BP 125/55; PULSE 65; RESP 16; TEMP 37.2; O2SAT 95
--- NOTE | 2022-02-08 12:17 | HO.PM.IMPN ---
Subjective Subjective Date of Service: 02/08/22 Interval History: cc:ams interval history: very sleepy today Review of Systems Review of Systems: Yes Unobtainable due to mental condition Physical Exam Vital Signs: Vital Signs: Last Vital Signs Temp 98.9 F 02/08/22 11:13 Pulse 65 02/08/22 11:13 Resp 16 02/08/22 11:13 BP 125/55 L 02/08/22 11:13 Pulse Ox 95 02/08/22 11:13 BMI result Body Mass Index 26.2 Appearing in no acute distress ?lung sounds are clear to auscultation, rhonchi ?heart regular rate rhythm, clear? S1, S2 ?positive bowel sounds, abdomen is soft, nontender sleepy, not cooperative Objective Data Active Medications Acetaminophen (Acetaminophen 325 Mg Tablet) 650 mg PO Q6H PRN PRN Reason: Pain, Mild (Pain Scale 1-3) Amlodipine Besylate (Amlodipine Besylate 5 Mg Tablet) 5 mg PO DAILY [facility] Last Admin: 02/08/22 09:03 Dose: 5 mg Documented by: YARELI Ascorbic Acid (Ascorbic Acid 500 Mg Tablet) 500 mg PO DAILY [facility] Last Admin: 02/08/22 09:04 Dose: 500 mg Documented by: YARELI Atorvastatin Calcium (Atorvastatin Calcium 40 Mg Tablet) 40 mg PO BEDTIME [facility] Last Admin: 02/07/22 22:03 Dose: Not Given Documented by: ADINA Non-Admin Reason: Patient Refused Carbidopa/Levodopa (Carbidopa/Levodopa 25/100 Tablet) 1 tab PO TID [facility] Last Admin: 02/08/22 09:05 Dose: 1 tab Documented by: YARELI Carbidopa/Levodopa (Carbidopa/Levodopa Cr 50/200 Tablet.Er) 1 tab PO BID [facility] Last Admin: 02/08/22 09:03 Dose: 1 tab Documented by: YARELI Clopidogrel Bisulfate (Clopidogrel Bisulfate 75 Mg Tablet) 75 mg PO DAILY [facility] Last Admin: 02/08/22 09:03 Dose: 75 mg Documented by: YARELI Docusate Sodium (Docusate Sodium 100 Mg Capsule) 100 mg PO BID [facility] Last Admin: 02/08/22 09:05 Dose: 100 mg Documented by: YARELI Enoxaparin Sodium (Enoxaparin Sodium 40 Mg/0.4 Ml Syringe) 40 mg SUBCUT Q24H [facility] Last Admin: 02/08/22 09:07 Dose: 40 mg Documented by: YARELI Guaifenesin (Guaifenesin La 600 Mg Tab.Er.12h) 600 mg PO BID [facility] Last Admin: 02/08/22 09:05 Dose: 600 mg Documented by: YARELI Hydralazine HCl (Hydralazine Hcl 10 Mg Tablet) 10 mg PO BID [facility]; Protocol Last Admin: 02/08/22 09:04 Dose: 10 mg Documented by: YARELI Levetiracetam (Levetiracetam 250 Mg Tablet) 250 mg PO BID [facility] Last Admin: 02/08/22 09:04 Dose: 250 mg Documented by: YARELI Ondansetron HCl (Ondansetron Hcl 4 Mg/2 Ml Vial) 4 mg IVPUSH Q8H PRN PRN Reason: Nausea and Vomiting Sodium Chloride (0.9 % Sodium Chloride Flush 3 Ml Syringe) 3 ml IVFLUSH QSHIFT [facility] Last Admin: 02/08/22 09:09 Dose: Not Given Documented by: YARELI Non-Admin Reason: No Access Valsartan (Valsartan 160 Mg Tablet) 160 mg PO DAILY [facility] Last Admin: 02/08/22 09:03 Dose: 160 mg Documented by: YARELI Labs CBC & Chem 7: 02/05/22 07:27 02/07/22 10:06 Assessment and Plan (1) Encephalopathy: Status: Acute Plan 86-year-old female with past medical history of Parkinson's disease, TIA who presents to the hospital with an episode of altered mental status Toxic metabolic Encephalopathy, acute covid encephalopathy with weakness and delerium in background of dementia (memory loss, requring some care, but usually converstational oriented) plan to resume home care services when they are okay with taking patient recovering from covid COVID-19 infection no hypoxia, not requiring oxygen monitor respiratory status Hypertensive urgency improved spontaneously continue home medications Parkinson's disease, chronic continue carbidopa levodopa DVT prophylaxis:? loveonx subQ Full code reason for continued hospitalization: awaiting home care set up Quality Stroke Does the patient have a stroke diagnosis?: No VTE Prior VTE?: No VTE Risk Level:: Medical - moderate - high VTE Device Contraindication: Treatment Not Indicated VTE Drug Contraindication: N/A - Med Ordered
--- NOTE | 2022-02-08 15:32 | MHC.CM.PN ---
Female 86 DX Covid [facility] requires a negative rapid covid test prior to resumption of homecare services. The test has been ordered. Ana Santana Pt's manager medicare marketing provided the information re the home care agency's resumption criteria. DP depends on covid test result. communications program manager will provide transport to home.
[2022-02-08 15:52] VITALS: BP 132/56; PULSE 63; RESP 18; TEMP 36.7; O2SAT 96
[2022-02-08 16:16] LABS: COVID-19 Test Positive (Negative); IDNOW Serial# 16C4AD1C
[2022-02-08 18:42] VITALS: BP 145/61; PULSE 60; RESP 18; TEMP 36.8; O2SAT 97
--- NOTE | 2022-02-08 22:24 | PC.NURSE ---
pt is refusing all her po bedtime medications, stated live me alone , go away . no urine output since 2 pm, bladder scanned for 195ml . po intake 60 ml since 3 pm. Pt is refusing po intake and meds. Made DR Beltran aware, will encourage pt to take her meeds later
[2022-02-09] VITALS: BP 154/69; PULSE 60; RESP 16; TEMP 37.2; O2SAT 95
[2022-02-09] MEDS: 0.9 % Sodium Chloride Flush 3 ML SYRINGE IVFLUSH ×3 (01:01→18:13)
[2022-02-09 03:42] VITALS: BP 176/59; PULSE 76; RESP 16; TEMP 37.4; O2SAT 95
[2022-02-09 06:31] LABS: Hematocrit 35.7 % (37.0-47.0); Hemoglobin 11.4 g/dl (12.0-16.0); Mean Corpuscular HGB Conc 31.9 g/dl (31.0-35.0); Mean Corpuscular Hemoglobin 30.8 pg (27.0-33.0); Mean Corpuscular Volume 96.5 fL (80.0-98.0); Platelet Count 137 X10*3/uL (160-400); Red Cell Distribution Width 14.2 % (11.0-16.0); White Blood Count 7.2 X10*3/uL (4.8-10.8)
[2022-02-09 06:55] LABS: Anion Gap 11 (12-20); Blood Urea Nitrogen 16 mg/dL (9-16); Calcium 8.8 mg/dL (8.4-10.2); Carbon Dioxide 28 mmol/L (22-29); Chloride 106 mmol/L (96-108); Estimated Glomerular Filt Rate > 60; Glucose Fasting 93 mg/dL (60-99); Potassium 3.5 mmol/L (3.3-5.1); Sodium 141 mmol/L (135-145)
[2022-02-09 07:00] VITALS: BP 164/71; PULSE 69; RESP 20; TEMP 37.4; O2SAT 95
[2022-02-09] MEDS: levETIRAcetam 250 MG TABLET PO ×2 (09:45→20:03)
[2022-02-09] MEDS: Enoxaparin Sodium 40 MG/0.4 ML SYRINGE SUBCUT (09:45)
[2022-02-09] MEDS: amLODIPine Besylate 5 MG TABLET PO (09:46)
[2022-02-09] MEDS: hydrALAZINE HCl 10 MG TABLET PO ×2 (09:46→20:03)
[2022-02-09] MEDS: Carbidopa/Levodopa CR 50/200 TABLET.ER 1 TAB PO (09:51)
[2022-02-09] MEDS: Carbidopa/Levodopa 25/100 TABLET 1 TAB PO ×2 (09:51→20:03)
[2022-02-09] MEDS: Ascorbic Acid 500 MG TABLET PO (09:51)
[2022-02-09] MEDS: Valsartan 160 MG TABLET PO (09:51)
[2022-02-09] MEDS: Clopidogrel Bisulfate 75 MG TABLET PO (09:52)
--- NOTE | 2022-02-09 10:46 | P.PNIM_ITS ---
Subjective Subjective Date of Service: 02/09/22 Interval History: cc:ams interval history: not hungry Cardiovascular Cardiovascular: Reports no additional cardiovascular complaints Respiratory Respiratory: Reports no additional respiratory complaints Physical Exam Vital Signs: Vital Signs: Last Vital Signs Temp 99.3 F 02/09/22 07:00 Pulse 69 02/09/22 07:00 Resp 20 02/09/22 07:00 BP 164/71 H 02/09/22 07:00 Pulse Ox 95 02/09/22 07:00 BMI result Body Mass Index 26.2 Appearing in no acute distress ?lung sounds are clear to auscultation, rhonchi ?heart regular rate rhythm, clear? S1, S2 ?positive bowel sounds, abdomen is soft, nontender sleepy, not cooperative Objective Data Active Medications Acetaminophen (Acetaminophen 325 Mg Tablet) 650 mg PO Q6H PRN PRN Reason: Pain, Mild (Pain Scale 1-3) Amlodipine Besylate (Amlodipine Besylate 5 Mg Tablet) 5 mg PO DAILY [facility] Last Admin: 02/09/22 09:46 Dose: 5 mg Documented by: JENNIFER Ascorbic Acid (Ascorbic Acid 500 Mg Tablet) 500 mg PO DAILY [facility] Last Admin: 02/09/22 09:51 Dose: 500 mg Documented by: JENNIFER Atorvastatin Calcium (Atorvastatin Calcium 40 Mg Tablet) 40 mg PO BEDTIME [facility] Last Admin: 02/08/22 22:04 Dose: Not Given Documented by: CRUZ Non-Admin Reason: Patient Refused Carbidopa/Levodopa (Carbidopa/Levodopa 25/100 Tablet) 1 tab PO TID [facility] Last Admin: 02/09/22 09:51 Dose: 1 tab Documented by: JENNIFER Carbidopa/Levodopa (Carbidopa/Levodopa Cr 50/200 Tablet.Er) 1 tab PO BID [facility] Last Admin: 02/09/22 09:51 Dose: 1 tab Documented by: JENNIFER Clopidogrel Bisulfate (Clopidogrel Bisulfate 75 Mg Tablet) 75 mg PO DAILY [facility] Last Admin: 02/09/22 09:52 Dose: 75 mg Documented by: JENNIFER Docusate Sodium (Docusate Sodium 100 Mg Capsule) 100 mg PO BID [facility] Last Admin: 02/09/22 10:02 Dose: Not Given Documented by: JENNIFER Non-Admin Reason: cannot be crushed Enoxaparin Sodium (Enoxaparin Sodium 40 Mg/0.4 Ml Syringe) 40 mg SUBCUT Q24H [facility] Last Admin: 02/09/22 09:45 Dose: 40 mg Documented by: JENNIFER Guaifenesin (Guaifenesin La 600 Mg Tab.Er.12h) 600 mg PO BID [facility] Last Admin: 02/09/22 10:02 Dose: Not Given Documented by: JENNIFER Non-Admin Reason: cannot be crushed Hydralazine HCl (Hydralazine Hcl 10 Mg Tablet) 10 mg PO BID [facility]; Protocol Last Admin: 02/09/22 09:46 Dose: 10 mg Documented by: JENNIFER Levetiracetam (Levetiracetam 250 Mg Tablet) 250 mg PO BID [facility] Last Admin: 02/09/22 09:45 Dose: 250 mg Documented by: JENNIFER Ondansetron HCl (Ondansetron Hcl 4 Mg/2 Ml Vial) 4 mg IVPUSH Q8H PRN PRN Reason: Nausea and Vomiting Sodium Chloride (0.9 % Sodium Chloride Flush 3 Ml Syringe) 3 ml IVFLUSH QSHIFT [facility] Last Admin: 02/09/22 09:45 Dose: 3 ml Documented by: JENNIFER Valsartan (Valsartan 160 Mg Tablet) 160 mg PO DAILY [facility] Last Admin: 02/09/22 09:51 Dose: 160 mg Documented by: JENNIFER Labs CBC & Chem 7: 02/09/22 05:58 02/09/22 05:58 Labs: Laboratory Results - last 24 hr 02/08/22 02/09/22 02/09/22 16:00 05:58 05:58 MCV 96.5 MCH 30.8 MCHC 31.9 RDW 14.2 Plt Count 137 L MPV 11.0 Absolute Nucleated RBC 0.000 Nucleated RBC % (auto) 0.0 Anion Gap 11 L Estim Creat Clear Calc 58.0 Estimated GFR > 60 Fasting Glucose 93 Calcium 8.8 COVID-19 ([place]) Positive A COVID-19 Clin Com See Note Assessment and Plan (1) Encephalopathy: Status: Acute Plan 86-year-old female with past medical history of Parkinson's disease, TIA who presents to the hospital with an episode of altered mental status Toxic metabolic Encephalopathy, acute covid encephalopathy with weakness and delerium in background of dementia (memory loss, requiring some care, but usually conversational oriented) plan to resume home care services when they are okay with taking patient recovering from covid COVID-19 infection no hypoxia, not requiring oxygen monitor respiratory status Hypertensive urgency improved spontaneously continue home medications Parkinson's disease, chronic continue carbidopa levodopa DVT prophylaxis:? loveonx subQ Full code reason for continued hospitalization: awaiting home care set up Quality Stroke Does the patient have a stroke diagnosis?: No VTE Prior VTE?: No VTE Risk Level:: Medical - moderate - high VTE Device Contraindication: Treatment Not Indicated VTE Drug Contraindication: N/A - Med Ordered
[2022-02-09 11:15] VITALS: BP 114/56; PULSE 68; RESP 18; TEMP 36.9; O2SAT 93
[2022-02-09 16:00] VITALS: BP 147/58; PULSE 61; RESP 17; TEMP 36.2; O2SAT 95
[2022-02-09 16:41] LABS: Glucose, Whole Blood 82 mg/dL (60-115)
[2022-02-09 20:00] VITALS: BP 152/66; PULSE 59; RESP 15; TEMP 36.8; O2SAT 96
[2022-02-09] MEDS: Atorvastatin Calcium 40 MG TABLET PO (20:10)
[2022-02-10] VITALS (8 sets, daily range): BP systolic 136–195; BP diastolic 60–74; PULSE 59–76; RESP 18–20; TEMP 36.6–37.1; O2SAT 96–98
[2022-02-10] MEDS: Acetaminophen 325 MG TABLET 650 MG PO ×2 (06:03→18:31)
[2022-02-10] MEDS: 0.9 % Sodium Chloride Flush 3 ML SYRINGE IVFLUSH ×2 (06:05→17:28)
[2022-02-10] MEDS: hydrALAZINE HCl 10 MG TABLET PO ×2 (06:05→21:44)
[2022-02-10] MEDS: Enoxaparin Sodium 40 MG/0.4 ML SYRINGE SUBCUT (08:47)
[2022-02-10] MEDS: Valsartan 160 MG TABLET PO (08:48)
[2022-02-10] MEDS: Ascorbic Acid 500 MG TABLET PO (08:48)
[2022-02-10] MEDS: Carbidopa/Levodopa 25/100 TABLET 1 TAB PO ×3 (08:48→21:44)
[2022-02-10] MEDS: Clopidogrel Bisulfate 75 MG TABLET PO (08:48)
[2022-02-10] MEDS: amLODIPine Besylate 5 MG TABLET PO (08:48)
--- NOTE | 2022-02-10 11:21 | HO.PM.IMPN ---
Subjective Subjective Date of Service: 02/10/22 Interval History: cc:ams interval history: not hungry Cardiovascular Cardiovascular: Reports no additional cardiovascular complaints Respiratory Respiratory: Reports no additional respiratory complaints Physical Exam Vital Signs: Vital Signs: Last Vital Signs Temp 98.6 F 02/10/22 09:00 Pulse 61 02/10/22 07:14 Resp 20 02/10/22 07:14 BP 176/73 H 02/10/22 07:14 Pulse Ox 96 02/10/22 07:14 BMI result Body Mass Index 26.2 Appearing in no acute distress ?lung sounds are clear to auscultation, rhonchi ?heart regular rate rhythm, clear? S1, S2 ?positive bowel sounds, abdomen is soft, nontender sleepy, not cooperative Objective Data Active Medications Acetaminophen (Acetaminophen 325 Mg Tablet) 650 mg PO Q6H PRN PRN Reason: Pain, Mild (Pain Scale 1-3) Last Admin: 02/10/22 06:03 Dose: 650 mg Documented by: MARVEL Amlodipine Besylate (Amlodipine Besylate 5 Mg Tablet) 5 mg PO DAILY [facility] Last Admin: 02/10/22 08:48 Dose: 5 mg Documented by: JENNIFER Ascorbic Acid (Ascorbic Acid 500 Mg Tablet) 500 mg PO DAILY [facility] Last Admin: 02/10/22 08:48 Dose: 500 mg Documented by: JENNIFER Atorvastatin Calcium (Atorvastatin Calcium 40 Mg Tablet) 40 mg PO BEDTIME [facility] Last Admin: 02/09/22 20:10 Dose: 40 mg Documented by: CRUZ Carbidopa/Levodopa (Carbidopa/Levodopa 25/100 Tablet) 1 tab PO TID [facility] Last Admin: 02/10/22 08:48 Dose: 1 tab Documented by: JENNIFER Carbidopa/Levodopa (Carbidopa/Levodopa Cr 50/200 Tablet.Er) 1 tab PO BID [facility] Last Admin: 02/10/22 09:07 Dose: Not Given Documented by: JENNIFER Non-Admin Reason: med previously administered Clopidogrel Bisulfate (Clopidogrel Bisulfate 75 Mg Tablet) 75 mg PO DAILY [facility] Last Admin: 02/10/22 08:48 Dose: 75 mg Documented by: JENNIFER Docusate Sodium (Docusate Sodium 100 Mg Capsule) 100 mg PO BID [facility] Last Admin: 02/10/22 08:48 Dose: Not Given Documented by: JENNIFER Non-Admin Reason: Patient Refused Enoxaparin Sodium (Enoxaparin Sodium 40 Mg/0.4 Ml Syringe) 40 mg SUBCUT Q24H [facility] Last Admin: 02/10/22 08:47 Dose: 40 mg Documented by: JENNIFER Guaifenesin (Guaifenesin La 600 Mg Tab.Er.12h) 600 mg PO BID [facility] Last Admin: 02/10/22 08:49 Dose: Not Given Documented by: JENNIFER Non-Admin Reason: Patient Refused Hydralazine HCl (Hydralazine Hcl 10 Mg Tablet) 10 mg PO BID [facility]; Protocol Last Admin: 02/10/22 06:05 Dose: 10 mg Documented by: MARVEL Comments: given early per Dr. Beltran Levetiracetam (Levetiracetam Oral Soln 500 Mg/5 Ml) 250 mg PO BID [facility] Ondansetron HCl (Ondansetron Hcl 4 Mg/2 Ml Vial) 4 mg IVPUSH Q8H PRN PRN Reason: Nausea and Vomiting Sodium Chloride (0.9 % Sodium Chloride Flush 3 Ml Syringe) 3 ml IVFLUSH QSHIFT [facility] Last Admin: 02/10/22 09:01 Dose: Not Given Documented by: JENNIFER Non-Admin Reason: pt removed IV Valsartan (Valsartan 160 Mg Tablet) 160 mg PO DAILY [facility] Last Admin: 02/10/22 08:48 Dose: 160 mg Documented by: JENNIFER Labs CBC & Chem 7: 02/09/22 05:58 02/09/22 05:58 Labs: Laboratory Results - last 24 hr 02/09/22 16:03 POC Glucose 82 Microbiology Microbiology Results: Microbiology 02/04/22 20:27 Blood Culture - Final Blood - Venous No growth after 5 days. 02/04/22 20:27 Blood Culture - Final Blood - Venous No growth after 5 days. Assessment and Plan (1) Encephalopathy: Status: Acute Plan 86-year-old female with past medical history of Parkinson's disease, TIA who presents to the hospital with an episode of altered mental status Toxic metabolic Encephalopathy, acute covid encephalopathy with weakness and delerium in background of dementia (memory loss, requiring some care, but usually conversational oriented) plan to resume home care services when they are okay with taking patient recovering from covid COVID-19 infection no hypoxia, not requiring oxygen monitor respiratory status Hypertensive urgency improved spontaneously continue home medications Parkinson's disease, chronic continue carbidopa levodopa DVT prophylaxis:? loveonx subQ Full code reason for continued hospitalization: awaiting home care set up Quality Stroke Does the patient have a stroke diagnosis?: No VTE Prior VTE?: No VTE Risk Level:: Medical - moderate - high VTE Device Contraindication: Treatment Not Indicated VTE Drug Contraindication: N/A - Med Ordered
[2022-02-10 14:34] LABS: COVID-19 Test Positive (Negative); IDNOW Serial# 9DB6401D
--- NOTE | 2022-02-10 15:22 | MHC.CM.PN ---
Female 86 DX Covid Patient continues to test + for Covid again today. More referrals have been sent. [facility] will follow up Sunday. The Pt's Performance Manager, Jacki Santana [phone], Will speak with [facility] re covid policy.
[2022-02-10] MEDS: Carbidopa/Levodopa CR 50/200 TABLET.ER 1 TAB PO (18:31)
[2022-02-10] MEDS: levETIRAcetam Oral Soln 500 MG/5 ML 250 MG PO (21:43)
[2022-02-10] MEDS: Atorvastatin Calcium 40 MG TABLET PO (21:44)
[2022-02-11] MEDS: 0.9 % Sodium Chloride Flush 3 ML SYRINGE IVFLUSH ×2 (01:00→10:24)
[2022-02-11 04:00] VITALS: PULSE 68
[2022-02-11 07:08] LABS: Hematocrit 36.4 % (37.0-47.0); Hemoglobin 11.6 g/dl (12.0-16.0); Mean Corpuscular HGB Conc 31.9 g/dl (31.0-35.0); Mean Corpuscular Hemoglobin 30.4 pg (27.0-33.0); Mean Corpuscular Volume 95.3 fL (80.0-98.0); Platelet Count 186 X10*3/uL (160-400); Red Blood Count 3.82 X10*6/uL (4.20-5.50); Red Cell Distribution Width 13.7 % (11.0-16.0); White Blood Count 8.2 X10*3/uL (4.8-10.8)
[2022-02-11 07:40] LABS: Anion Gap 12 (12-20); Blood Urea Nitrogen 14 mg/dL (9-16); Carbon Dioxide 25 mmol/L (22-29); Chloride 108 mmol/L (96-108); Creatinine Clr Calc Pharmacy 67.7; Estimated Glomerular Filt Rate > 60; Glucose Fasting 107 mg/dL (60-99); Potassium 3.8 mmol/L (3.3-5.1); Sodium 141 mmol/L (135-145)
[2022-02-11 07:45] VITALS: BP 145/64; PULSE 85; RESP 20; TEMP 37.2; O2SAT 99
--- NOTE | 2022-02-11 09:56 | HO.PM.IMPN ---
Subjective Subjective Date of Service: 02/11/22 Interval History: cc: ams interval history: not hungry Cardiovascular Cardiovascular: Reports no additional cardiovascular complaints Respiratory Respiratory: Reports no additional respiratory complaints Physical Exam Vital Signs: Vital Signs: Last Vital Signs Temp 98.9 F 02/11/22 07:45 Pulse 85 02/11/22 07:45 Resp 20 02/11/22 07:45 BP 145/64 H 02/11/22 07:45 Pulse Ox 99 02/11/22 07:45 BMI result Body Mass Index 26.2 Appearing in no acute distress ?lung sounds are clear to auscultation, rhonchi ?heart regular rate rhythm, clear? S1, S2 ?positive bowel sounds, abdomen is soft, nontender sleepy, not cooperative Objective Data Active Medications Acetaminophen (Acetaminophen 325 Mg Tablet) 650 mg PO Q6H PRN PRN Reason: Pain, Mild (Pain Scale 1-3) Last Admin: 02/10/22 18:31 Dose: 650 mg Documented by: CRUZ Amlodipine Besylate (Amlodipine Besylate 5 Mg Tablet) 5 mg PO DAILY [facility] Last Admin: 02/10/22 08:48 Dose: 5 mg Documented by: JENNIFER Ascorbic Acid (Ascorbic Acid 500 Mg Tablet) 500 mg PO DAILY [facility] Last Admin: 02/10/22 08:48 Dose: 500 mg Documented by: JENNIFER Atorvastatin Calcium (Atorvastatin Calcium 40 Mg Tablet) 40 mg PO BEDTIME [facility] Last Admin: 02/10/22 21:44 Dose: 40 mg Documented by: CRUZ Carbidopa/Levodopa (Carbidopa/Levodopa 25/100 Tablet) 1 tab PO TID [facility] Last Admin: 02/10/22 21:44 Dose: 1 tab Documented by: CRUZ Carbidopa/Levodopa (Carbidopa/Levodopa Cr 50/200 Tablet.Er) 1 tab PO BID [facility] Last Admin: 02/10/22 18:31 Dose: 1 tab Documented by: CRUZ Clopidogrel Bisulfate (Clopidogrel Bisulfate 75 Mg Tablet) 75 mg PO DAILY [facility] Last Admin: 02/10/22 08:48 Dose: 75 mg Documented by: JENNIFER Docusate Sodium (Docusate Sodium 100 Mg Capsule) 100 mg PO BID [facility] Last Admin: 02/10/22 21:44 Dose: Not Given Documented by: CRUZ Non-Admin Reason: Patient Refused Enoxaparin Sodium (Enoxaparin Sodium 40 Mg/0.4 Ml Syringe) 40 mg SUBCUT Q24H [facility] Last Admin: 02/10/22 08:47 Dose: 40 mg Documented by: JENNIFER Guaifenesin (Guaifenesin La 600 Mg Tab.Er.12h) 600 mg PO BID [facility] Last Admin: 02/10/22 21:44 Dose: Not Given Documented by: CRUZ Non-Admin Reason: Patient Refused Hydralazine HCl (Hydralazine Hcl 10 Mg Tablet) 10 mg PO BID [facility]; Protocol Last Admin: 02/10/22 21:44 Dose: 10 mg Documented by: CRUZ Levetiracetam (Levetiracetam Oral Soln 500 Mg/5 Ml) 250 mg PO BID [facility] Last Admin: 02/10/22 21:43 Dose: 250 mg Documented by: CRUZ Ondansetron HCl (Ondansetron Hcl 4 Mg/2 Ml Vial) 4 mg IVPUSH Q8H PRN PRN Reason: Nausea and Vomiting Sodium Chloride (0.9 % Sodium Chloride Flush 3 Ml Syringe) 3 ml IVFLUSH QSHIFT [facility] Last Admin: 02/11/22 01:00 Dose: 3 ml Documented by: NOLA Valsartan (Valsartan 160 Mg Tablet) 160 mg PO DAILY [facility] Last Admin: 02/10/22 08:48 Dose: 160 mg Documented by: JENNIFER Labs CBC & Chem 7: 02/11/22 06:53 02/11/22 06:53 Labs: Laboratory Results - last 24 hr 02/10/22 02/11/22 02/11/22 13:24 06:53 06:53 MCV 95.3 MCH 30.4 MCHC 31.9 RDW 13.7 Plt Count 186 D MPV 11.0 Absolute Nucleated RBC 0.000 Nucleated RBC % (auto) 0.0 Anion Gap 12 Estim Creat Clear Calc 67.7 Estimated GFR > 60 Fasting Glucose 107 H Calcium 9.0 COVID-19 ([place]) Positive A COVID-19 Clin Com See Note Assessment and Plan (1) Encephalopathy: Status: Acute Plan 86-year-old female with past medical history of Parkinson's disease, TIA who presents to the hospital with an episode of altered mental status Toxic metabolic Encephalopathy, acute covid encephalopathy with weakness and delerium in background of dementia (memory loss, requiring some care, but usually conversational oriented) plan to resume home care services when they are okay with taking patient recovering from covid COVID-19 infection no hypoxia, not requiring oxygen monitor respiratory status Hypertensive urgency improved spontaneously continue home medications Parkinson's disease, chronic continue carbidopa levodopa DVT prophylaxis:? loveonx subQ Full code reason for continued hospitalization: awaiting home care set up Quality Stroke Does the patient have a stroke diagnosis?: No VTE Prior VTE?: No VTE Risk Level:: Medical - moderate - high VTE Device Contraindication: Treatment Not Indicated VTE Drug Contraindication: N/A - Med Ordered
[2022-02-11] MEDS: Enoxaparin Sodium 40 MG/0.4 ML SYRINGE SUBCUT (10:22)
[2022-02-11] MEDS: levETIRAcetam Oral Soln 500 MG/5 ML 250 MG PO (10:23)
[2022-02-11 11:28] VITALS: BP 140/60; PULSE 68; RESP 20; TEMP 36.9; O2SAT 97
[2022-02-11] MEDS: amLODIPine Besylate 5 MG TABLET PO (12:29)
[2022-02-11] MEDS: Valsartan 160 MG TABLET PO (12:29)
[2022-02-11] MEDS: Clopidogrel Bisulfate 75 MG TABLET PO (12:29)
[2022-02-11] MEDS: hydrALAZINE HCl 10 MG TABLET PO (12:31)
[2022-02-11] MEDS: Carbidopa/Levodopa 25/100 TABLET 1 TAB PO (14:38)
[2022-02-11 15:29] VITALS: BP 151/69; PULSE 63; RESP 14; TEMP 37.1; O2SAT 95
[2022-02-11 19:26] VITALS: BP 161/75; PULSE 70; RESP 14; TEMP 37.1; O2SAT 98
[2022-02-11 23:32] VITALS: BP 188/90; PULSE 110; RESP 18; TEMP 36.9; O2SAT 94
[2022-02-12] MEDS: 0.9 % Sodium Chloride Flush 3 ML SYRINGE IVFLUSH (01:10)
[2022-02-12 04:00] VITALS: BP 178/56; PULSE 98; RESP 18; TEMP 36.2; O2SAT 98
[2022-02-12 07:37] VITALS: BP 150/68; PULSE 70; RESP 18; TEMP 37.1; O2SAT 95
--- NOTE | 2022-02-12 09:57 | HO.PM.IMPN ---
Subjective Subjective Date of Service: 02/12/22 Interval History: cc: ams interval history: not hungry Cardiovascular Cardiovascular: Reports no additional cardiovascular complaints Respiratory Respiratory: Reports no additional respiratory complaints Physical Exam Vital Signs: Vital Signs: Last Vital Signs Temp 98.7 F 02/12/22 07:37 Pulse 70 02/12/22 07:37 Resp 18 02/12/22 07:37 BP 150/68 H 02/12/22 07:37 Pulse Ox 95 02/12/22 07:37 BMI result Body Mass Index 26.2 Appearing in no acute distress ?lung sounds are clear to auscultation, rhonchi ?heart regular rate rhythm, clear? S1, S2 ?positive bowel sounds, abdomen is soft, nontender sleepy, not cooperative Objective Data Active Medications Acetaminophen (Acetaminophen 325 Mg Tablet) 650 mg PO Q6H PRN PRN Reason: Pain, Mild (Pain Scale 1-3) Last Admin: 02/10/22 18:31 Dose: 650 mg Documented by: CRUZ Amlodipine Besylate (Amlodipine Besylate 5 Mg Tablet) 5 mg PO DAILY [facility] Last Admin: 02/11/22 12:29 Dose: 5 mg Documented by: EDWAR Ascorbic Acid (Ascorbic Acid 500 Mg Tablet) 500 mg PO DAILY [facility] Last Admin: 02/11/22 12:30 Dose: Not Given Documented by: EDWAR Non-Admin Reason: Patient Refused Atorvastatin Calcium (Atorvastatin Calcium 40 Mg Tablet) 40 mg PO BEDTIME [facility] Last Admin: 02/11/22 21:12 Dose: Not Given Documented by: MARVEL Non-Admin Reason: Patient Refused Carbidopa/Levodopa (Carbidopa/Levodopa 25/100 Tablet) 1 tab PO TID [facility] Last Admin: 02/11/22 21:14 Dose: Not Given Documented by: MARVEL Non-Admin Reason: Patient Refused Carbidopa/Levodopa (Carbidopa/Levodopa Cr 50/200 Tablet.Er) 1 tab PO BID [facility] Last Admin: 02/11/22 22:09 Dose: Not Given Documented by: MARVEL Non-Admin Reason: Patient Refused Clopidogrel Bisulfate (Clopidogrel Bisulfate 75 Mg Tablet) 75 mg PO DAILY [facility] Last Admin: 02/11/22 12:29 Dose: 75 mg Documented by: EDWAR Docusate Sodium (Docusate Sodium 100 Mg Capsule) 100 mg PO BID [facility] Last Admin: 02/11/22 22:09 Dose: Not Given Documented by: MARVEL Non-Admin Reason: Patient Refused Enoxaparin Sodium (Enoxaparin Sodium 40 Mg/0.4 Ml Syringe) 40 mg SUBCUT Q24H [facility] Last Admin: 02/11/22 10:22 Dose: 40 mg Documented by: EDWAR Guaifenesin (Guaifenesin La 600 Mg Tab.Er.12h) 600 mg PO BID [facility] Last Admin: 02/11/22 21:14 Dose: Not Given Documented by: MARVEL Non-Admin Reason: Patient Refused Hydralazine HCl (Hydralazine Hcl 10 Mg Tablet) 10 mg PO BID [facility]; Protocol Last Admin: 02/11/22 21:13 Dose: Not Given Documented by: MARVEL Non-Admin Reason: Patient Refused Levetiracetam (Levetiracetam Oral Soln 500 Mg/5 Ml) 250 mg PO BID [facility] Last Admin: 02/11/22 21:13 Dose: Not Given Documented by: MARVEL Non-Admin Reason: Patient Refused Ondansetron HCl (Ondansetron Hcl 4 Mg/2 Ml Vial) 4 mg IVPUSH Q8H PRN PRN Reason: Nausea and Vomiting Sodium Chloride (0.9 % Sodium Chloride Flush 3 Ml Syringe) 3 ml IVFLUSH QSHIFT [facility] Last Admin: 02/12/22 01:10 Dose: 3 ml Documented by: MARVEL Valsartan (Valsartan 160 Mg Tablet) 160 mg PO DAILY [facility] Last Admin: 02/11/22 12:29 Dose: 160 mg Documented by: EDWAR Labs CBC & Chem 7: 02/11/22 06:53 02/11/22 06:53 Assessment and Plan (1) Encephalopathy: Status: Acute Plan 86-year-old female with past medical history of Parkinson's disease, TIA who presents to the hospital with an episode of altered mental status Toxic metabolic Encephalopathy, acute covid encephalopathy with weakness and delerium in background of dementia (memory loss, requiring some care, but usually conversational oriented) plan to resume home care services when they are okay with taking patient recovering from covid, still testing positive COVID-19 infection no hypoxia, not requiring oxygen monitor respiratory status Hypertensive urgency improved spontaneously continue home medications Parkinson's disease, chronic continue carbidopa levodopa DVT prophylaxis:? loveonx subQ Full code reason for continued hospitalization: awaiting home care set up Quality Stroke Does the patient have a stroke diagnosis?: No VTE Prior VTE?: No VTE Risk Level:: Medical - moderate - high VTE Device Contraindication: Treatment Not Indicated VTE Drug Contraindication: N/A - Med Ordered
[2022-02-12] MEDS: Ascorbic Acid 500 MG TABLET PO (10:55)
[2022-02-12 11:43] VITALS: BP 133/63; PULSE 65; RESP 16; TEMP 36.6; O2SAT 95
[2022-02-12 15:22] VITALS: BP 158/72; PULSE 59; RESP 16; TEMP 36.9; O2SAT 96
[2022-02-12 19:09] VITALS: BP 165/73; PULSE 83; RESP 16; TEMP 36.7; O2SAT 94
[2022-02-12 23:37] VITALS: BP 178/65; PULSE 60; RESP 18; TEMP 36.8; O2SAT 92
[2022-02-13 03:45] VITALS: BP 145/48; PULSE 87; RESP 18; TEMP 37.3; O2SAT 92
[2022-02-13 08:00] VITALS: BP 173/78; PULSE 92; RESP 20; TEMP 36.8; O2SAT 92
--- NOTE | 2022-02-13 10:00 | MHC.CM.PN ---
Addendum entered by Nissa Duke 02/13/22 12:05: Patient tested positive. Home health agency 23/04 will resume services Sunday02/15/22. Addendum entered by Nissa Duke 02/13/22 10:07: Nurse Cherelle is aware that the manager transportation planning will be coming in with a covid test. She will co;;ect the spec as instructed by management. Original Note: Female Covid+ Eduardo Lorenzo has a bed. Notified Ana manager transportation planning. She is requesting to come in and obtain a rapid covid test today. The request was grated. Jacki has been notified that she can bring the test for our nurse to collect.
[2022-02-13] MEDS: Valsartan 160 MG TABLET PO (10:11)
[2022-02-13] MEDS: Carbidopa/Levodopa 25/100 TABLET 1 TAB PO ×2 (10:12→15:53)
[2022-02-13] MEDS: Clopidogrel Bisulfate 75 MG TABLET PO (10:13)
[2022-02-13] MEDS: Carbidopa/Levodopa CR 50/200 TABLET.ER 1 TAB PO (10:13)
[2022-02-13] MEDS: Docusate Sodium 100 MG CAPSULE PO (10:14)
[2022-02-13] MEDS: amLODIPine Besylate 5 MG TABLET PO (10:14)
[2022-02-13] MEDS: guaiFENesin LA 600 MG TAB.ER.12H PO (10:14)
[2022-02-13] MEDS: hydrALAZINE HCl 10 MG TABLET PO (10:15)
[2022-02-13] MEDS: levETIRAcetam Oral Soln 500 MG/5 ML 250 MG PO (10:16)
[2022-02-13] MEDS: Enoxaparin Sodium 40 MG/0.4 ML SYRINGE SUBCUT (10:16)
--- NOTE | 2022-02-13 10:44 | HO.PM.IMPN ---
Subjective Subjective Date of Service: 02/13/22 Interval History: cc: ams interval history: no complaints Cardiovascular Cardiovascular: Reports no additional cardiovascular complaints Respiratory Respiratory: Reports no additional respiratory complaints Physical Exam Vital Signs: Vital Signs: Last Vital Signs Temp 98.3 F 02/13/22 08:00 Pulse 92 02/13/22 08:00 Resp 20 02/13/22 08:00 BP 173/78 H 02/13/22 08:00 Pulse Ox 92 02/13/22 08:00 BMI result Body Mass Index 26.2 Appearing in no acute distress ?lung sounds are clear to auscultation, rhonchi ?heart regular rate rhythm, clear? S1, S2 ?positive bowel sounds, abdomen is soft, nontender sleepy, not cooperative Objective Data Active Medications Acetaminophen (Acetaminophen 325 Mg Tablet) 650 mg PO Q6H PRN PRN Reason: Pain, Mild (Pain Scale 1-3) Last Admin: 02/10/22 18:31 Dose: 650 mg Documented by: CRUZ Amlodipine Besylate (Amlodipine Besylate 5 Mg Tablet) 5 mg PO DAILY [facility] Last Admin: 02/13/22 10:14 Dose: 5 mg Documented by: CHUCK Ascorbic Acid (Ascorbic Acid 500 Mg Tablet) 500 mg PO DAILY [facility] Last Admin: 02/12/22 10:55 Dose: 500 mg Documented by: RENE Atorvastatin Calcium (Atorvastatin Calcium 40 Mg Tablet) 40 mg PO BEDTIME [facility] Last Admin: 02/12/22 23:29 Dose: Not Given Documented by: IFEANYI Non-Admin Reason: Patient Refused Carbidopa/Levodopa (Carbidopa/Levodopa 25/100 Tablet) 1 tab PO TID [facility] Last Admin: 02/13/22 10:12 Dose: 1 tab Documented by: CHUCK Carbidopa/Levodopa (Carbidopa/Levodopa Cr 50/200 Tablet.Er) 1 tab PO BID [facility] Last Admin: 02/13/22 10:13 Dose: 1 tab Documented by: CHUCK Clopidogrel Bisulfate (Clopidogrel Bisulfate 75 Mg Tablet) 75 mg PO DAILY [facility] Last Admin: 02/13/22 10:13 Dose: 75 mg Documented by: CHUCK Docusate Sodium (Docusate Sodium 100 Mg Capsule) 100 mg PO BID [facility] Last Admin: 02/13/22 10:14 Dose: 100 mg Documented by: CHUCK Enoxaparin Sodium (Enoxaparin Sodium 40 Mg/0.4 Ml Syringe) 40 mg SUBCUT Q24H [facility] Last Admin: 02/13/22 10:16 Dose: 40 mg Documented by: CHUCK Guaifenesin (Guaifenesin La 600 Mg Tab.Er.12h) 600 mg PO BID [facility] Last Admin: 02/13/22 10:14 Dose: 600 mg Documented by: CHUCK Hydralazine HCl (Hydralazine Hcl 10 Mg Tablet) 10 mg PO BID [facility]; Protocol Last Admin: 02/13/22 10:15 Dose: 10 mg Documented by: CHUCK Levetiracetam (Levetiracetam Oral Soln 500 Mg/5 Ml) 250 mg PO BID [facility] Last Admin: 02/13/22 10:16 Dose: 250 mg Documented by: CHUCK Ondansetron HCl (Ondansetron Hcl 4 Mg/2 Ml Vial) 4 mg IVPUSH Q8H PRN PRN Reason: Nausea and Vomiting Sodium Chloride (0.9 % Sodium Chloride Flush 3 Ml Syringe) 3 ml IVFLUSH QSHIFT [facility] Last Admin: 02/13/22 10:17 Dose: Not Given Documented by: CHUCK Non-Admin Reason: No Access Valsartan (Valsartan 160 Mg Tablet) 160 mg PO DAILY [facility] Last Admin: 02/13/22 10:11 Dose: 160 mg Documented by: CHUCK Labs CBC & Chem 7: 02/11/22 06:53 02/11/22 06:53 Assessment and Plan (1) Encephalopathy: Status: Acute Plan 86-year-old female with past medical history of Parkinson's disease, TIA who presents to the hospital with an episode of altered mental status Toxic metabolic Encephalopathy, acute covid encephalopathy with weakness and delerium in background of dementia (memory loss, requiring some care, but usually conversational oriented) plan to resume home care services when they are okay with taking patient recovering from covid, still testing positive COVID-19 infection no hypoxia, not requiring oxygen monitor respiratory status Hypertensive urgency improved spontaneously continue home medications Parkinson's disease, chronic continue carbidopa levodopa DVT prophylaxis:? loveonx subQ Full code reason for continued hospitalization: awaiting home care set up Quality Stroke Does the patient have a stroke diagnosis?: No VTE Prior VTE?: No VTE Risk Level:: Medical - moderate - high VTE Device Contraindication: Treatment Not Indicated VTE Drug Contraindication: N/A - Med Ordered
[2022-02-13 12:00] VITALS: BP 149/69; PULSE 82; RESP 20; TEMP 36.8; O2SAT 92
[2022-02-13 15:42] VITALS: BP 114/53; PULSE 70; RESP 14; TEMP 37.3; O2SAT 90
[2022-02-13 19:33] VITALS: BP 145/59; PULSE 78; RESP 14; TEMP 37.8; O2SAT 93
[2022-02-13 23:52] VITALS: BP 164/72; PULSE 77; RESP 18; TEMP 37.2; O2SAT 93
[2022-02-14 03:33] VITALS: BP 131/56; PULSE 70; RESP 18; TEMP 37.7; O2SAT 91
[2022-02-14 08:00] VITALS: BP 172/71; PULSE 78; RESP 16; TEMP 37.3; O2SAT 95
[2022-02-14] MEDS: Enoxaparin Sodium 40 MG/0.4 ML SYRINGE SUBCUT (10:05)
--- NOTE | 2022-02-14 10:44 | P.PNIM_ITS ---
Subjective Subjective Date of Service: 02/14/22 Interval History: cc: ams interval history: no complaints Cardiovascular Cardiovascular: Reports no additional cardiovascular complaints Respiratory Respiratory: Reports no additional respiratory complaints Physical Exam Vital Signs: Vital Signs: Last Vital Signs Temp 99.2 F 02/14/22 08:00 Pulse 78 02/14/22 08:00 Resp 16 02/14/22 08:00 BP 172/71 H 02/14/22 08:00 Pulse Ox 95 02/14/22 08:00 BMI result Body Mass Index 26.2 Appearing in no acute distress ?lung sounds are clear to auscultation, rhonchi ?heart regular rate rhythm, clear? S1, S2 ?positive bowel sounds, abdomen is soft, nontender sleepy, not cooperative Objective Data Active Medications Acetaminophen (Acetaminophen 325 Mg Tablet) 650 mg PO Q6H PRN PRN Reason: Pain, Mild (Pain Scale 1-3) Last Admin: 02/10/22 18:31 Dose: 650 mg Documented by: CRUZ Amlodipine Besylate (Amlodipine Besylate 5 Mg Tablet) 5 mg PO DAILY [facility] Last Admin: 02/14/22 10:08 Dose: Not Given Documented by: CHUCK Non-Admin Reason: Patient Refused Ascorbic Acid (Ascorbic Acid 500 Mg Tablet) 500 mg PO DAILY [facility] Last Admin: 02/14/22 10:08 Dose: Not Given Documented by: CHUCK Non-Admin Reason: Patient Refused Atorvastatin Calcium (Atorvastatin Calcium 40 Mg Tablet) 40 mg PO BEDTIME [facility] Last Admin: 02/13/22 20:42 Dose: Not Given Documented by: JOSE L Non-Admin Reason: Patient Refused Carbidopa/Levodopa (Carbidopa/Levodopa 25/100 Tablet) 1 tab PO TID [facility] Last Admin: 02/14/22 10:08 Dose: Not Given Documented by: CHUCK Non-Admin Reason: Patient Refused Carbidopa/Levodopa (Carbidopa/Levodopa Cr 50/200 Tablet.Er) 1 tab PO BID [facility] Last Admin: 02/14/22 10:08 Dose: Not Given Documented by: CHUCK Non-Admin Reason: Patient Refused Clopidogrel Bisulfate (Clopidogrel Bisulfate 75 Mg Tablet) 75 mg PO DAILY [facility] Last Admin: 02/14/22 10:08 Dose: Not Given Documented by: CHUCK Non-Admin Reason: Patient Refused Docusate Sodium (Docusate Sodium 100 Mg Capsule) 100 mg PO BID [facility] Last Admin: 02/14/22 10:08 Dose: Not Given Documented by: CHUCK Non-Admin Reason: Patient Refused Enoxaparin Sodium (Enoxaparin Sodium 40 Mg/0.4 Ml Syringe) 40 mg SUBCUT Q24H [facility] Last Admin: 02/14/22 10:05 Dose: 40 mg Documented by: CHUCK Guaifenesin (Guaifenesin La 600 Mg Tab.Er.12h) 600 mg PO BID [facility] Last Admin: 02/14/22 10:08 Dose: Not Given Documented by: CHUCK Non-Admin Reason: Patient Refused Hydralazine HCl (Hydralazine Hcl 10 Mg Tablet) 10 mg PO BID [facility]; Protocol Last Admin: 02/14/22 10:09 Dose: Not Given Documented by: CHUCK Non-Admin Reason: Patient Refused Levetiracetam (Levetiracetam Oral Soln 500 Mg/5 Ml) 250 mg PO BID [facility] Last Admin: 02/14/22 10:09 Dose: Not Given Documented by: CHUCK Non-Admin Reason: Patient Refused Ondansetron HCl (Ondansetron Hcl 4 Mg/2 Ml Vial) 4 mg IVPUSH Q8H PRN PRN Reason: Nausea and Vomiting Sodium Chloride (0.9 % Sodium Chloride Flush 3 Ml Syringe) 3 ml IVFLUSH QSHIFT [facility] Last Admin: 02/14/22 10:05 Dose: Not Given Documented by: CHUCK Non-Admin Reason: No Access Valsartan (Valsartan 160 Mg Tablet) 160 mg PO DAILY [facility] Last Admin: 02/14/22 10:09 Dose: Not Given Documented by: CHUCK Non-Admin Reason: Patient Refused Labs CBC & Chem 7: 02/11/22 06:53 02/11/22 06:53 Assessment and Plan (1) Encephalopathy: Status: Acute Plan 86-year-old female with past medical history of Parkinson's disease, TIA who presents to the hospital with an episode of altered mental status Toxic metabolic Encephalopathy, acute covid encephalopathy with weakness and delerium in background of dementia (memory loss, requiring some care, but usually conversational oriented) plan to resume home care services tomorrow COVID-19 infection no hypoxia, not requiring oxygen monitor respiratory status Hypertensive urgency improved spontaneously continue home medications Parkinson's disease, chronic continue carbidopa levodopa DVT prophylaxis:? loveonx subQ Full code reason for continued hospitalization: awaiting home care set up (planned for isabel nina) Quality Stroke Does the patient have a stroke diagnosis?: No VTE Prior VTE?: No VTE Risk Level:: Medical - moderate - high VTE Device Contraindication: Treatment Not Indicated VTE Drug Contraindication: N/A - Med Ordered
[2022-02-14 11:42] VITALS: BP 169/69; PULSE 67; RESP 19; TEMP 37.1; O2SAT 92
[2022-02-14 15:45] VITALS: BP 120/56; PULSE 83; RESP 18; TEMP 37.1; O2SAT 90
[2022-02-14 19:50] VITALS: BP 157/67; PULSE 58; RESP 16; TEMP 36.8; O2SAT 95
[2022-02-14 23:21] VITALS: BP 140/68; PULSE 53; RESP 18; TEMP 36.6; O2SAT 93
--- NOTE | 2022-02-15 03:16 | PC.NURSE ---
Pt noted to be fluctuating in and out of aflutter which it looks like she does not have a history of. Dr. Beltran notified, EKG ordered.
[2022-02-15 03:30] VITALS: BP 183/82; PULSE 65; RESP 18; TEMP 36.7; O2SAT 95
--- NOTE | 2022-02-15 03:44 | ECG_ITS ---
Test Reason : aflutter with no history Blood Pressure : / mmHG Vent. Rate : 065 BPM Atrial Rate : 065 BPM P-R Int : 144 ms QRS Dur : 098 ms QT Int : 430 ms P-R-T Axes : 049 -07 042 degrees QTc Int : 447 ms Normal sinus rhythm Minimal voltage criteria for LVH, may be normal variant ( [place] product ) Borderline ECG When compared with ECG of 05-FEB-2022 21:13, Premature atrial complexes are no longer Present Referred By: Juan M Beltran Electronically Signed By:SAMI WITT
[2022-02-15 04:29] VITALS: BP 182/84
--- NOTE | 2022-02-15 04:35 | PC.NURSE ---
Upon first assessment, pt would not open eyes or follow commands. Only responding to sternal rub by pushing away, otherwise arms contracted/rigid over chest. Attempted a second time to administer medications and pt told this RN to p*ss off. Unable to administer, Dr. Beltran aware. Pt BP this morning has been high twice, 183/84 at 0330, and 182/[address] Beltran notified, ordered to administer morning amlodipine dose early, if pt cooperates. Will continue to monitor.
[2022-02-15 07:39] VITALS: BP 170/69; PULSE 63; RESP 18; TEMP 36.4; O2SAT 93
--- NOTE | 2022-02-15 08:58 | MHC.CM.PN ---
Addendum entered by Nissa Duke 02/15/22 11:36: Discharge today to home with [facility] and resumption of [facility]. Transport via BLS. Original Note: IMM 02/15/22 Female 86 DX Covid Discharge has been planned for today. Paid help is available and willing to start services today. DP Home with [facility] via BLS. Jacki Santana, Community residential property manager, confirms 12pm [facility] will resume services. Transport is booked for 1pm picker packer.
[2022-02-15] MEDS: levETIRAcetam Oral Soln 500 MG/5 ML 250 MG PO (10:22)
[2022-02-15] MEDS: amLODIPine Besylate 5 MG TABLET PO (10:23)
[2022-02-15] MEDS: Valsartan 160 MG TABLET PO (10:24)
[2022-02-15] MEDS: Ascorbic Acid 500 MG TABLET PO (10:24)
[2022-02-15] MEDS: Clopidogrel Bisulfate 75 MG TABLET PO (10:24)
[2022-02-15] MEDS: Carbidopa/Levodopa 25/100 TABLET 1 TAB PO (10:25)
[2022-02-15] MEDS: hydrALAZINE HCl 10 MG TABLET PO (10:25)
[2022-02-15 11:18] VITALS: BP 121/50; PULSE 67; RESP 18; TEMP 36.8; O2SAT 95
--- NOTE | 2022-02-15 11:56 | PM.DS ---
DS: Providers Provider Date of Service: 02/15/22 Date of admission: 02/05/22 04:21 Primary care physician: Unknown Physician DS: Diagnosis Discharge Diagnosis (1) Encephalopathy: Status: Acute (2) Hypertensive urgency: Status: Acute (3) COVID-19: Status: Acute (4) Weakness: Status: Acute DS: Summary Hospital Course Hospital Course: Admission note HPI This is an 86-year-old female with past medical history of HTN, CAD, dysphagia, Parkinson's disease, HLD, seizure disorder, history of TIA who presents from home after somebody called EMS for COVID positive status.? It is unclear who called the ambulance, and why but per documentation from ER as well as ED physician, patient had a positive COVID test at home and therefore was brought into the hospital.? Patient is now alert to self and place, but does not know who called ambulance and or why she is in the hospital.? She does endorse Covert positive status that she discovered while home.? Per EMS patient was reported to have decreased oral intake, weakness, but otherwise no other information can be obtained.? On her arrival to the ED patient was documented to have been confused, unresponsive to noxious stimuli. Patient herself denies any chest pain, no shortness of breath, no cough, no abdominal pain nausea or vomiting, no diarrhea constipation, no urinary symptoms and no lower extremity edema. Vitals were noted to be temp of 101.1 degrees, blood pressure of 219/94, satting 95% on room air Labs were significant for positive COVID-19 Chest x-ray shows subtle changes of atypical infection consistent with COVID-19 Patient will be admitted for further evaluation Hospital course The patient was admitted to the hospital for evaluation of Toxic metabolic Encephalopathy which was believed to be secondary to COVID infection associated with generalized weakness. She was noted to have significantly elevated blood pressure which was also thought to be causing some degree of encephalopathy. patient has no neurological deficits but is definitely confused she has underlying dementia and Parkinson's disease .head CT negative for any acute abnormality. Mental status improved back to her baseline. Evaluated by Physical therapy who recommended home PT. COVID-19 infection no hypoxia, not requiring oxygen but has junky cough. to be discharged on mucinex, may use at home Hypertensive urgency improved spontaneously. to be discharged on higher home medications of felodipine and irbesartan to follow-up with PCP as scheduled Time Spent with Patient Time attestation: Total time spent providing and/or coordinating discharge services: Discharge coordination time: Greater than 30 minutes Quality: Safe Use of Opioids Does Pt have an Active Cancer Diagnosis on the Problem List?: No Quality: Stroke Does the patient have a stroke diagnosis?: No Physical Exam Vital Signs: Vital Signs: Last Vital Signs Temp 98.2 F 02/15/22 11:18 Pulse 67 02/15/22 11:18 Resp 18 02/15/22 11:18 BP 121/50 L 02/15/22 11:18 Pulse Ox 95 02/15/22 11:18 BMI result Body Mass Index 26.2 Const: Other: Constitutional : Alert, interactive, not in distress Neck : Normal inspection, Supple Cardiovascular : RRR, no JVP, no lower extremity edema Respiratory : f fair bilateral air entry, no crackles, wheezes or rhonchi Gastrointestinal: soft, lax, Normal bowel sounds, Non tender Skin : Warm, Dry Neurological : Alert & oriented to self and place, No focal deficit , CN 2-12 within normal Discharge Plan Discharge Patient Disposition: Home Health Service Discharge Diagnosis: Covid 19, encephalopathy [facility] Ming Piper MD [Physician] - 1 Week Discharge Medications: Continued hydralazine 10 mg tablet 10 mg PO BID Qty: 180 0RF felodipine 5 mg tablet extended release 24 hr 5 mg PO DAILY Qty: 90 0RF clopidogrel 75 mg tablet 75 mg PO DAILY Qty: 90 0RF atorvastatin 40 mg tablet 40 mg PO BEDTIME Qty: 90 0RF levetiracetam 250 mg tablet 1 tab PO BID 0RF irbesartan 300 mg tablet 300 mg PO DAILY 90 Days Qty: 90 1RF carbidopa-levodopa 50-200 mg tablet extended release 1 tab PO BID 0RF acetaminophen [Tylenol Extra Strength] 500 mg tablet 500 mg PO BID 0RF carbidopa-levodopa 25-100 mg tablet 1 tab PO TID 0RF docusate sodium [Colace] 100 mg capsule 100 mg PO BID 0RF ascorbate calcium (vitamin C) 500 mg tablet 500 mg PO DAILY 0RF PreserVision AREDS [id number] capsule 1 cap PO DAILY 0RF Discharge Orders: Discharge Order (Routine); Ordered 02/15/22 Ordered By: Sarah Castro Diet: advance to usual diet Activity on Discharge: As tolerated Stand Alone Forms: Patient Portal Discharge page Care Plan Goals: complete resolution of symptoms Health Concerns: COVID-19 with COVID encephalopathy Plan of Treatment: Follow-up with primary care provider as needed Assessment: see discharge summary
--- NOTE | 2022-02-15 12:01 | W.MHC.F2F ---
Service Date Service Date: 02/15/22 Encounter Date of encounter: 02/15/22 Reasons for Services Signs and symptoms assessed: physical deconditioning Reason for snf: medication treatment and teach disease management Reason for physical therapy: home safety and mobility and therapeutic exercises Homebound: Leaving the home is medically contraindicated at this time without the asist of a device and/or another person due th the listed conditions above and below. Reason homebound: unsteady gait / fall risk Certification: Based on the above findings, I certify that this patient is confined to the home and needs intermittent snf care, physical therapy and/or speech therapy, or continues to need occupational therapy. The patient is under my care, and I have initiated the establishment of the plan of care. The patient will be followed by a physician who will periodically review the plan of care.
== END 2022-02-15 13:46 | disposition home health service (06) ==
LOC: HO.ED 23:52 → HO.EDOVER 02-05 04:54 → HO.IMC 02-05 14:49
PROVIDERS: Internal Medicine; Nurse Practitioner Acute Care; Admitting Provider Internal Medicine; Emergency Provider Internal Medicine; Visit Provider Student in an Organized Health Care Education/Training Program
DX: G93.40 Encephalopathy, unspecified (principal); I16.0 Hypertensive urgency; U07.1 COVID-19; R53.1 Weakness; I10 Essential (primary) hypertension; I25.10 Atherosclerotic heart disease of native coronary artery without angina pectoris; I69.991 Dysphagia following unspecified cerebrovascular disease; G20 Parkinson's disease; G40.909 Epilepsy, unspecified, not intractable, without status epilepticus; R41.82 Altered mental status, unspecified; E78.5 Hyperlipidemia, unspecified; E78.00 Pure hypercholesterolemia, unspecified; I49.1 Atrial premature depolarization; I48.91 Unspecified atrial fibrillation; R00.0 Tachycardia, unspecified; R74.8 Abnormal levels of other serum enzymes; I48.92 Unspecified atrial flutter; R26.81 Unsteadiness on feet; Z91.81 History of falling; Z98.890 Other specified postprocedural states; Z79.899 Other long term (current) drug therapy
CPT/HCPCS: 36415; 70450; 71045; 80048; 80053; 81001; 81003; 82947; 83605; 85025; 85027; 87040; 87502; 87635; 93005; 96361; 96372; 96374; 96375; 97162; 99219; 99285; J1100; J1650

== ENCOUNTER 2022-06-21 15:46 | Outpatient (REF) | payer SELFPAY | END 2022-06-21 15:47 | disposition home or self-care (01) | LOC: HO.HAP 15:46 | PROVIDERS: Visit Provider Internal Medicine | DX: Z13.89 Encounter for screening for other disorder (principal) ==

== ENCOUNTER 2022-06-23 09:55 | Outpatient (REF) | payer SELFPAY | END 2022-06-23 09:56 | disposition home or self-care (01) | LOC: HO.HAP 09:55 | PROVIDERS: Visit Provider Internal Medicine | DX: Z46.1 Encounter for fitting and adjustment of hearing aid (principal); H90.3 Sensorineural hearing loss, bilateral | CPT/HCPCS: 99499; V5299 ==

== ENCOUNTER 2022-09-11 11:32 | Outpatient (REF) | payer SELFPAY | END 2022-09-11 11:33 | disposition home or self-care (01) | LOC: HO.HAP 11:32 | PROVIDERS: Visit Provider Internal Medicine | DX: Z13.89 Encounter for screening for other disorder (principal) ==

== ENCOUNTER 2022-09-14 09:58 | Outpatient (REF) | payer SELFPAY | END 2022-09-14 09:59 | disposition home or self-care (01) | LOC: HO.HAP 09:58 | PROVIDERS: Visit Provider Internal Medicine | DX: Z46.1 Encounter for fitting and adjustment of hearing aid (principal); H90.3 Sensorineural hearing loss, bilateral | CPT/HCPCS: 92593 ==

== ENCOUNTER 2022-09-27 11:28 | Outpatient (REF) | payer SELFPAY ==
[2022-09-27 13:38] LABS: MANUAL DIFF FLAG NO
[2022-09-27 13:55] LABS: Basophils Percent Auto 0.4 % (0-2); Eosinophils Absolute Auto 0.2 X10*3/uL (0.0-0.4); Eosinophils Percent Auto 2.3 % (0-4); Hematocrit 37.6 % (37.0-47.0); Hemoglobin 11.7 g/dl (12.0-16.0); Imm Gran Abs Auto 0.02 X10*3/uL (0.00-0.03); Imm Gran Pct Auto 0.2 % (0.0-0.4); Lymphocytes Absolute Auto 1.8 X10*3/uL (1.2-4.9); Lymphocytes Percent Auto 21.3 % (20-40); Mean Corpuscular HGB Conc 31.1 g/dl (31.0-35.0); Mean Corpuscular Volume 99.7 fL (80.0-98.0); Mean Platelet Volume 11.6 fL (9.4-12.3); Monocytes Absolute Auto 0.7 X10*3/uL (0.1-1.2); Monocytes Percent Auto 8.7 % (2-11); Neutrophils Absolute Auto 5.6 x10*3/uL (2.0-8.3); Neutrophils Percent Auto 67.1 % (45-73); Platelet Count 210 X10*3/uL (160-400); Red Blood Count 3.77 X10*6/uL (4.20-5.50); Red Cell Distribution Width 13.8 % (11.0-16.0); White Blood Count 8.4 X10*3/uL (4.8-10.8)
[2022-09-27 14:10] LABS: Estimated Average Glucose 94 mg/dL; Hemoglobin A1c % 4.9 %
[2022-09-27 14:34] LABS: Alanine Aminotransferase 7 U/L (0-31); Albumin Level 3.9 g/dL (3.5-5.0); Alkaline Phosphatase 89 U/L (39-117); Anion Gap 10 (12-20); Aspartate Amino Transferase 16 U/L (5-31); Bilirubin Total 0.4 mg/dL (0.0-1.0); Blood Urea Nitrogen 16 mg/dL (9-16); Calcium 9.5 mg/dL (8.4-10.2); Carbon Dioxide 31 mmol/L (22-29); Chloride 106 mmol/L (96-108); Cholesterol 130 mg/dL; Estimated Glomerular Filt Rate > 60; Glucose Fasting 109 mg/dL (60-99); HDL Cholesterol 40 mg/dL; LDL Cholesterol Calculated 77 mg/dl; Potassium 3.9 mmol/L (3.3-5.1); Sodium 143 mmol/L (135-145); TSH reflex Free T4 1.06 uIU/mL (0.32-4.0); Total Protein 6.1 g/dL (6.5-8.0); Triglycerides 68 mg/dL; Vitamin D 25-OH Total 41.1 ng/mL (>30)
[2022-10-01 16:48] LABS: Levetiracetam Keppra 3.6 mcg/mL (6.0-46.0)
== END 2022-09-27 11:29 | disposition home or self-care (01) ==
LOC: HO.10HDL 11:28
PROVIDERS: Visit Provider Internal Medicine
DX: E55.9 Vitamin D deficiency, unspecified (principal); I10 Essential (primary) hypertension; R73.01 Impaired fasting glucose; G40.909 Epilepsy, unspecified, not intractable, without status epilepticus; E78.00 Pure hypercholesterolemia, unspecified
CPT/HCPCS: 36415; 80053; 80061; 80177; 82306; 83036; 84443; 85025

== ENCOUNTER 2022-10-18 14:30 | Outpatient (REF) | payer MEDICARE, OTHER, SELFPAY ==
[2022-10-18 14:45] LABS: Appearance Urine Clear; Color Urine Dark Yellow; Glucose Urine UA Negative (Negative); Leukocyte Esterase Urine Negative (Negative); Nitrite Urine Negative (Negative); UMIC TRIGGER UACC YES; Urine Blood Negative (Negative); Urine Ketones Trace mg/dL (Negative); Urine Protein 100 (2+) mg/dL (Neg-Trace)
[2022-10-18 14:50] LABS: Bacteria Urine Trace (None Seen); Hyaline Casts Urine 0-2 /LPF (0-2); RBC Urine 0-2 /HPF (0-2); WBC Urine 0-5 /HPF (0-5)
== END 2022-10-18 14:31 | disposition home or self-care (01) ==
LOC: HO.LNP 14:30
PROVIDERS: Visit Provider Internal Medicine
DX: I10 Essential (primary) hypertension (principal)
CPT/HCPCS: 81001

== ENCOUNTER 2022-10-24 11:54 | Outpatient (REF) | payer MEDICARE, OTHER, SELFPAY ==
--- NOTE | ~2022-10-24 | XR_ITS ---
EXAMINATION: XR LUMBOSACRAL SPINE CLINICAL INFORMATION: Low back pain. COMPARISON: None TECHNIQUE: Three views of the lumbosacral spine. FINDINGS: There is normal lumbar lordosis. The vertebral heights and alignment is normal. There is loss of L5-S1, L4-L5 and L3-L4 disc heights with posterior spondylosis at the L2-L3, L3-L4 disc levels. No aggressive lytic or sclerotic process seen. There is moderate right lateral L3-L4 spondylosis. No lytic process. The paravertebral soft tissues are normal. There is L4 and L5 laminectomy changes. The SI joints are symmetrical and normal. XR/XR lumbar spine 2-3V IMPRESSION: Degenerative disc changes L3-L4, L4-L5 and L5-S1 disc levels with moderate posterior L2-L3, L3-L4 and right lateral moderate L3-L4 spondylosis. No visible acute fracture, dislocation or lytic process seen. Laminectomy L4 and L5 vertebra.
== END 2022-10-24 11:55 | disposition home or self-care (01) ==
LOC: HO.XRAY 11:54
PROVIDERS: PCP Internal Medicine; Visit Provider Internal Medicine
DX: M54.50 Low back pain, unspecified (principal)
CPT/HCPCS: 72100

== ENCOUNTER 2023-02-14 12:13 | Emergency (ER) | payer MEDICARE, OTHER, SELFPAY ==
--- NOTE | ~2023-02-14 | CT_ITS ---
EXAMINATION: CT HEAD WITHOUT CONTRAST CLINICAL INFORMATION: Seizure COMPARISON: Previous head CT most recent January 2022 TECHNIQUE: Contiguous axial imaging was performed from the skull base to vertex without intravenous administration of contrast. This CT examination was performed using dose optimization techniques as appropriate, variously including the following: *Automated exposure control *Adjustment of mA and/or kV according to patient size (this includes techniques or standardized protocols for targeted exams where dose is matched to indication/reason for exam; i.e. extremities or head) *Use of iterative reconstruction technique DLP: 633 mGy-cm FINDINGS: There is no evidence of an extra-axial collection. There is no evidence of intra-axial or axial hemorrhage. The ventricles and extra-axial CSF spaces are prominent suggestive of mild generalized atrophy. There is nonspecific periventricular white matter disease. No mass, mass effect or infarct. No skull fracture. Soft tissue opacification of both mastoid air cells. There is some soft tissue opacification of the right middle ear and ossicles are not seen. Minimal membranous soft tissue thickening in the left maxillary sinus. Visualized paranasal sinuses are otherwise clear. CT/CT head/brain wo IV con IMPRESSION: No acute intracranial findings. Soft tissue opacification of the mastoid air cells bilaterally. Some soft tissue in the right middle ear and ossicles not seen. This could be better evaluated with temporal bone CT if clinically indicated.
[2023-02-14 12:26] VITALS: BP 116/60; BP 145/55; PULSE 65; PULSE 72; RESP 12; TEMP 36.6; O2SAT 97; O2SAT 98; BMI 26.6
--- NOTE | 2023-02-14 12:50 | PC.NURSE ---
Coming from [facility] for ?seizure today pt went unresponsive in wheelchair. Upon arrival patient is awake and alert speaking in full clear sentences stating that she feels fine and is ready to go home. IV established, labs drawn and sent.
[2023-02-14 12:52] LABS: MANUAL DIFF FLAG NO
[2023-02-14 12:55] LABS: Basophils Percent Auto 0.4 % (0-2); Eosinophils Absolute Auto 0.2 X10*3/uL (0.0-0.4); Eosinophils Percent Auto 1.9 % (0-4); Hematocrit 36.3 % (37.0-47.0); Hemoglobin 11.6 g/dl (12.0-16.0); Imm Gran Abs Auto 0.02 X10*3/uL (0.00-0.03); Imm Gran Pct Auto 0.2 % (0.0-0.4); Lymphocytes Absolute Auto 1.5 X10*3/uL (1.2-4.9); Lymphocytes Percent Auto 18.3 % (20-40); Mean Corpuscular Hemoglobin 31.8 pg (27.0-33.0); Mean Corpuscular Volume 99.5 fL (80.0-98.0); Mean Platelet Volume 11.3 fL (9.4-12.3); Monocytes Absolute Auto 0.9 X10*3/uL (0.1-1.2); Monocytes Percent Auto 10.8 % (2-11); Neutrophils Absolute Auto 5.5 x10*3/uL (2.0-8.3); Neutrophils Percent Auto 68.4 % (45-73); Platelet Count 203 X10*3/uL (160-400); Red Blood Count 3.65 X10*6/uL (4.20-5.50); Red Cell Distribution Width 14.6 % (11.0-16.0); White Blood Count 8.1 X10*3/uL (4.8-10.8)
[2023-02-14 13:07] LABS: INTERNATIONAL NORM RATIO 0.9 (0.9-1.1); Prothrombin Time 10.8 SEC (10.0-13.1)
[2023-02-14 13:42] LABS: Alanine Aminotransferase < 5 U/L (0-31); Albumin Level 3.7 g/dL (3.5-5.0); Alkaline Phosphatase 87 U/L (39-117); Anion Gap 11 (12-20); Aspartate Amino Transferase 9 U/L (5-31); Bilirubin Total 0.7 mg/dL (0.0-1.0); Blood Urea Nitrogen 18 mg/dL (9-16); Calcium 9.1 mg/dL (8.4-10.2); Carbon Dioxide 27 mmol/L (22-29); Chloride 110 mmol/L (96-108); Creatinine Clr Calc Pharmacy 51.6; Estimated Glomerular Filt Rate > 60; Glucose Random 87 mg/dL (60-115); Potassium 3.6 mmol/L (3.3-5.1); Sodium 144 mmol/L (135-145); Total Protein 6.1 g/dL (6.5-8.0)
[2023-02-14 13:45] VITALS: BP 168/62; PULSE 70; RESP 18; O2SAT 98
--- NOTE | 2023-02-14 14:44 | ED.GENADULT ---
HPI - General Adult General Chief complaint: General Medical Stated complaint: Poss partial seizure per EMS Time Seen by Provider: 02/14/23 12:23 Source: patient and EMS Mode of arrival: EMS History of Present Illness HPI narrative: 87-year-old female with past medical history of seizure disorder for which she is on Keppra, patient also has a history of Parkinson's disease and Alzheimer's. Patient is brought in by EMS today for staff noting that patient dropped to the floor and appeared to be having a seizure and was unresponsive. Patient was awake when EMS arrived, she is currently unable to provide further information at this time but denies any pain anywhere within her chest or abdomen. Related Data Home Medications Medication Instructions Recorded Confirmed acetaminophen 500 mg tablet 500 mg PO BID 01/05/21 02/08/23 (Tylenol Extra Strength) ascorbate calcium (vitamin C) 500 500 mg PO DAILY 02/01/21 02/08/23 mg tablet docusate sodium 100 mg capsule 100 mg PO BID 02/01/21 02/08/23 (Colace) vitamins A,C,X-vzhd-jlfapu 4,296 1 cap PO DAILY 02/01/21 02/08/23 mcg-226 mg-90 mg capsule (PreserVision AREDS) carbidopa 25 mg-levodopa 100 mg 1 tab PO TID 04/08/21 02/08/23 tablet carbidopa ER 50 mg-levodopa 200 mg 1 tab PO BID 08/09/21 02/08/23 tablet,extended release levetiracetam 250 mg tablet 250 mg PO BEDTIME 10/03/22 02/08/23 Previous Rx's Medication Instructions Recorded clopidogrel 75 mg tablet 75 mg PO DAILY 90 days #90 tabs 09/09/22 irbesartan 300 mg tablet 300 mg PO DAILY 90 days #90 tabs 09/09/22 hydralazine 10 mg tablet 10 mg PO BID 90 days #180 tabs 12/25/22 atorvastatin 40 mg tablet 40 mg PO BEDTIME 90 days #90 tabs 01/20/23 famotidine 20 mg tablet 20 mg PO DAILY #90 tabs 01/20/23 felodipine 5 mg tablet,extended 5 mg PO DAILY 90 days #90 tabs 01/20/23 release 24 hr cephalexin 500 mg capsule 500 mg PO BID 3 days #6 caps 02/14/23 Allergies Allergy/AdvReac Type Severity Reaction Status Date / Time aspirin Allergy Severe angioedema Verified 02/08/23 10:04 Review of Systems Review of Systems: Yes Unobtainable due to mental condition PMFSH Past Medical History Source: nursing notes reviewed Medical History Benign essential hypertension Carotid artery stenosis Difficulty walking Dysphagia Elevated CPK Impaired fasting glucose Overweight (BMI 25.0-29.9) Parkinson's Disease Pure hypercholesterolemia Seizure TIA (transient ischemic attack) Tremor Surgical History History of right-sided carotid endarterectomy Family History Family History Father No problems noted. Mother HTN (hypertension) Social History Social History Household Members: None Household Members Other:: Caregiver 18 hours per day Housing: Assisted Living Facility Are you a primary manager respiratory care to a significant other at home: No Do you presently have visiting nurse or other home services: Yes Alcohol intake: never Patient Tobacco Use Status: Never used Tobacco Smoked in Last 30 Days: No e-Cigarette/Vaping Use: Never Used Second Hand Smoke Exposure: No Use of substances other than those prescribed or required for medical reasons: No Advance Directives: No service: No Current occupational status: retired Cognitive needs: Yes Hearing needs: Yes Vision needs: Yes Physical Exam ED Vital Signs: Vital Signs - 24 hr 02/14/23 12:26 02/14/23 13:45 Temperature 97.9 F Pulse Rate 65 70 Respiratory Rate 12 18 Blood Pressure 145/55 H 168/62 H Pulse Oximetry 97 98 Oxygen Delivery Method Room Air Room Air BMI result Body Mass Index 26.6 VITAL SIGNS: Reviewed. GENERAL: Well developed, well nourished, in no acute distress. HEAD: Normocephalic/atraumatic EYES: PERRLA, EOMI EARS: Ext canals without abnormality NOSE: Nares patent bilateral OROPHARYNX: no oral lesions noted, posterior pharynx clear NECK: Supple, no adenopathy LUNGS: Normal breath sounds. No adventitious sounds or accessory muscle use. SpO2<98> CARDIOVASCULAR: Regular rate and rhythm without noted murmurs, no JVD or lower extremity edema. ABDOMEN: Soft, non-tender, non-distended with bowel sounds. MUSCULOSKELETAL: No tenderness, deformities, or effusions noted on gross inspection. EXTREMITIES: No cyanosis, clubbing or edema. SKIN: Inspection of the skin reveals no rashes NEUROLOGIC: Alert and oriented x 2. Strength and sensation to light touch were grossly intact x 4, no facial asymmetry, no pronator drift, cranial nerves 2-12 are grossly intact. Medical Decision Making Medical Decision Making MDM Narrative: 87-year-old female who arrives via EMS with a history of seizures, will obtain basic lab work to rule out infection, anemia, electrolyte abnormalities as well as obtaining a Keppra level. CT of the head will also be completed. On review of all investigations lab work appears to be chronically stable, CT scan is without acute findings to better explain patient's presentation and on review of urinalysis which was obtained by straight catheterization there is a presence of leukocyte esterase and wbc's and patient will be treated with a 3 day course of cephalexin 500 mg b.i.d. will provide instructions for follow-up on urine culture as well as follow-up on Keppra levels. I will send my note over to the primary care provider. Differential Diagnosis Please see the discussion above Lab Data Please see the discussion above 02/14/23 12:35 02/14/23 13:12 Labs: Lab Results 02/14/23 02/14/23 02/14/23 Range/Units 12:35 12:35 13:12 WBC 8.1 (4.8-10.8) X10*3/uL RBC 3.65 L (4.20-5.50) X10*6/uL Hgb 11.6 L (12.0-16.0) g/dl Hct 36.3 L (37.0-47.0) % MCV 99.5 H (80.0-98.0) fL MCH 31.8 (27.0-33.0) pg MCHC 32.0 (31.0-35.0) g/dl RDW 14.6 (11.0-16.0) % Plt Count 203 (160-400) X10*3/uL MPV 11.3 (9.4-12.3) fL Immature Gran % (Auto) 0.2 (0.0-0.4) % Neut % (Auto) 68.4 (45-73) % Lymph % (Auto) 18.3 L (20-40) % [place] % (Auto) 10.8 (2-11) % Eos % (Auto) 1.9 (0-4) % Baso % (Auto) 0.4 (0-2) % Lymph # (Auto) 1.5 (1.2-4.9) X10*3/uL [facility] # (Auto) 0.9 (0.1-1.2) X10*3/uL Eos # (Auto) 0.2 (0.0-0.4) X10*3/uL Baso # (Auto) 0.0 (0.0-0.2) X10*3/uL Abs Immat Gran (auto) 0.02 (0.00-0.03) X10*3/uL Absolute Neuts (auto) 5.5 (2.0-8.3) x10*3/uL Absolute Nucleated RBC 0.000 (0.0-0.012) X10*3/uL Nucleated RBC % (auto) 0.0 (0.0-0.2) /100WBC PT 10.8 (10.0-13.1) SEC INR 0.9 (0.9-1.1) Sodium 144 (135-145) mmol/L Potassium 3.6 (3.3-5.1) mmol/L Chloride 110 H (96-108) mmol/L Carbon Dioxide 27 (22-29) mmol/L Anion Gap 11 L (12-20) BUN 18 H (9-16) mg/dL Creatinine 0.71 (0.5-1.4) mg/dL Estim Creat Clear Calc 51.6 Estimated GFR > 60 Random Glucose 87 (60-115) mg/dL Calcium 9.1 (8.4-10.2) mg/dL Total Bilirubin 0.7 (0.0-1.0) mg/dL AST 9 (5-31) U/L ALT < 5 (0-31) U/L Alkaline Phosphatase 87 (39-117) U/L Total Protein 6.1 L (6.5-8.0) g/dL Albumin 3.7 (3.5-5.0) g/dL Urine Color Urine Appearance Urine pH (5.0-9.0) Ur Specific [place] (1.005-1.025) Urine Protein (Neg-Trace) mg/dL Urine Glucose (UA) (Negative) mg/dL Urine Ketones (Negative) mg/dL Urine Blood (Negative) Urine Nitrite (Negative) Ur Leukocyte Esterase (Negative) Urine RBC (0-2) /HPF Urine WBC (0-5) /HPF Ur Squamous Epith Cells (0-2) /HPF Urine Bacteria (None Seen) Hyaline Casts (0-2) /LPF 02/14/23 Range/Units 15:36 WBC (4.8-10.8) X10*3/uL RBC (4.20-5.50) X10*6/uL Hgb (12.0-16.0) g/dl Hct (37.0-47.0) % MCV (80.0-98.0) fL MCH (27.0-33.0) pg MCHC (31.0-35.0) g/dl RDW (11.0-16.0) % Plt Count (160-400) X10*3/uL MPV (9.4-12.3) fL Immature Gran % (Auto) (0.0-0.4) % Neut % (Auto) (45-73) % Lymph % (Auto) (20-40) % [facility] % (Auto) (2-11) % Eos % (Auto) (0-4) % Baso % (Auto) (0-2) % Lymph # (Auto) (1.2-4.9) X10*3/uL [facility] # (Auto) (0.1-1.2) X10*3/uL Eos # (Auto) (0.0-0.4) X10*3/uL Baso # (Auto) (0.0-0.2) X10*3/uL Abs Immat Gran (auto) (0.00-0.03) X10*3/uL Absolute Neuts (auto) (2.0-8.3) x10*3/uL Absolute Nucleated RBC (0.0-0.012) X10*3/uL Nucleated RBC % (auto) (0.0-0.2) /100WBC PT (10.0-13.1) SEC INR (0.9-1.1) Sodium (135-145) mmol/L Potassium (3.3-5.1) mmol/L Chloride (96-108) mmol/L Carbon Dioxide (22-29) mmol/L Anion Gap (12-20) BUN (9-16) mg/dL Creatinine (0.5-1.4) mg/dL Estim Creat Clear Calc Estimated GFR Random Glucose (60-115) mg/dL Calcium (8.4-10.2) mg/dL Total Bilirubin (0.0-1.0) mg/dL AST (5-31) U/L ALT (0-31) U/L Alkaline Phosphatase (39-117) U/L Total Protein (6.5-8.0) g/dL Albumin (3.5-5.0) g/dL Urine Color Yellow Urine Appearance Cloudy Urine pH 6.0 (5.0-9.0) Ur Specific [place] 1.020 (1.005-1.025) Urine Protein 100 (2+) H (Neg-Trace) mg/dL Urine Glucose (UA) Negative (Negative) mg/dL Urine Ketones Trace (Negative) mg/dL Urine Blood Negative (Negative) Urine Nitrite Negative (Negative) Ur Leukocyte Esterase Trace H (Negative) Urine RBC 0-2 (0-2) /HPF Urine WBC 6-10 H (0-5) /HPF Ur Squamous Epith Cells 6-10 (0-2) /HPF Urine Bacteria Trace (None Seen) Hyaline Casts 3-5 (0-2) /LPF External Record Review External record reviewed: Prior outpatient labs Chronic Conditions Parkinson's, Alzheimer's Discharge Plan Discharge Clinical Impression: Seizure, Acute UTI Patient Disposition: Home, Self-Care Instructions: Nonepileptic Seizures (ED), Urinary Tract Infection in Older Adults (ED) Additional Instructions: 1. Resume all home medications as prescribed. 2. Complete the entire course of antibiotics as ordered. 3. Please have the primary care physician follow-up on the urine culture for best tailoring of antibiotics. In addition, the Keppra level needs to be followed up on. Do not hesitate to return to the emergency room for any worsening of symptoms. Prescriptions: New cephalexin 500 mg capsule 500 mg PO BID 3 Days Qty: 6 0RF No Action clopidogrel 75 mg tablet 75 mg PO DAILY 90 Days Qty: 90 1RF irbesartan 300 mg tablet 300 mg PO DAILY 90 Days Qty: 90 1RF hydralazine 10 mg tablet 10 mg PO BID 90 Days Qty: 180 1RF famotidine 20 mg tablet 20 mg PO DAILY Qty: 90 1RF atorvastatin 40 mg tablet 40 mg PO BEDTIME 90 Days Qty: 90 1RF felodipine 5 mg tablet extended release 24 hr 5 mg PO DAILY 90 Days Qty: 90 1RF carbidopa-levodopa 50-200 mg tablet extended release 1 tab PO BID acetaminophen [Tylenol Extra Strength] 500 mg tablet 500 mg PO BID carbidopa-levodopa 25-100 mg tablet 1 tab PO TID levetiracetam 250 mg tablet 250 mg PO BEDTIME docusate sodium [Colace] 100 mg capsule 100 mg PO BID ascorbate calcium (vitamin C) 500 mg tablet 500 mg PO DAILY PreserVision AREDS [id number] capsule 1 cap PO DAILY Referrals: Ming Piper MD [Primary Care Provider] -
[2023-02-14 16:12] LABS: Appearance Urine Cloudy; Color Urine Yellow; Glucose Urine UA Negative (Negative); Leukocyte Esterase Urine Trace (Negative); Nitrite Urine Negative (Negative); UMIC TRIGGER UACC YES; Urine Blood Negative (Negative); Urine Ketones Trace mg/dL (Negative); Urine Protein 100 (2+) mg/dL (Neg-Trace)
[2023-02-14 16:14] LABS: Bacteria Urine Trace (None Seen); RBC Urine 0-2 /HPF (0-2); UACC Culture Trigger YES
[2023-02-14] MEDS: cephALEXin 500 MG CAPSULE PO (17:02)
[2023-02-14] MEDS: levETIRAcetam 250 MG TABLET PO (17:02)
--- NOTE | 2023-02-14 17:20 | MHC.CM.ED ---
MOLST completed per protocol. Given to daughter/HCP. Uploaded into Care Port and [facility] [place] [facility] Expanse.
== END 2023-02-14 17:49 | disposition home or self-care (01) ==
PROVIDERS: Emergency Provider Student in an Organized Health Care Education/Training Program; PCP Internal Medicine
DX: R56.9 Unspecified convulsions (principal); N39.0 Urinary tract infection, site not specified; R51.9 Headache, unspecified; Z79.899 Other long term (current) drug therapy
CPT/HCPCS: 36415; 70450; 80053; 80177; 81001; 81003; 85025; 85610; 87086; 99284

== ENCOUNTER 2023-03-08 08:14 | Outpatient (REF) | payer SELFPAY | END 2023-03-08 08:15 | disposition home or self-care (01) | LOC: HO.HAP 08:14 | PROVIDERS: Visit Provider Internal Medicine | DX: Z46.1 Encounter for fitting and adjustment of hearing aid (principal); H90.3 Sensorineural hearing loss, bilateral | CPT/HCPCS: 92593 ==

== ENCOUNTER 2023-04-23 13:37 | Emergency (ER) | payer MEDICARE, OTHER, SELFPAY ==
[2023-04-23 13:50] VITALS: BP 138/56; PULSE 60; O2SAT 96
[2023-04-23 14:33] VITALS: BP 154/70; PULSE 67; RESP 16; TEMP 36.6; O2SAT 97; BMI 25.9
--- NOTE | 2023-04-23 14:33 | ECG_ITS ---
Test Reason : cp Blood Pressure : / mmHG Vent. Rate : 077 BPM Atrial Rate : 077 BPM P-R Int : 140 ms QRS Dur : 100 ms QT Int : 432 ms P-R-T Axes : 030 -04 046 degrees QTc Int : 488 ms Sinus rhythm with Premature atrial complexes Minimal voltage criteria for LVH, may be normal variant ( Jose product ) T wave abnormality, consider anterior ischemia Abnormal ECG When compared with ECG of 15-FEB-2022 03:32, Premature atrial complexes are now Present T wave inversion now evident in Anterior leads Referred By: Donald Moore Electronically Signed By:ZACHARY CURRIE MD
--- NOTE | 2023-04-23 14:46 | ED.GENADULT ---
HPI - General Adult General Chief complaint: Fall Stated complaint: WEAKNESS,+COLLAR PER EMS Time Seen by Provider: 04/23/23 14:27 Source: EMS Mode of arrival: EMS Limitations: altered mental status History of Present Illness HPI narrative: 87-year-old female with history of dementia presents after witnessed fall. She did not hit her head or have any significant injury. Staff was able to catch her as long term nursing facility. She did not lose consciousness. Appears to be mechanical nature. She herself is not helpful in providing any history but does not clearly complain of any chest pain, shortness breath, palpitations, abdominal pain, nausea, vomiting or diarrhea. Scars are symptoms are concerned, is not clear what relieves them were made them worse. She denies any pain at this time. She denies any headache or vision changes. Related Data Home Medications Medication Instructions Recorded Confirmed acetaminophen 500 mg tablet 500 mg PO BID 01/05/21 02/08/23 (Tylenol Extra Strength) ascorbate calcium (vitamin C) 500 500 mg PO DAILY 02/01/21 02/08/23 mg tablet docusate sodium 100 mg capsule 100 mg PO BID 02/01/21 02/08/23 (Colace) vitamins A,C,A-rkxr-kkwnyu 4,296 1 cap PO DAILY 02/01/21 02/08/23 mcg-226 mg-90 mg capsule (PreserVision AREDS) carbidopa 25 mg-levodopa 100 mg 1 tab PO TID 04/08/21 02/08/23 tablet carbidopa ER 50 mg-levodopa 200 mg 1 tab PO BID 08/09/21 02/08/23 tablet,extended release levetiracetam 250 mg tablet 250 mg PO BEDTIME 10/03/22 02/08/23 Previous Rx's Medication Instructions Recorded hydralazine 10 mg tablet 10 mg PO BID 90 days #180 tabs 12/25/22 atorvastatin 40 mg tablet 40 mg PO BEDTIME 90 days #90 tabs 01/20/23 famotidine 20 mg tablet 20 mg PO DAILY #90 tabs 01/20/23 felodipine 5 mg tablet,extended 5 mg PO DAILY 90 days #90 tabs 01/20/23 release 24 hr cephalexin 500 mg capsule 500 mg PO BID 3 days #6 caps 02/14/23 clopidogrel 75 mg tablet 75 mg PO DAILY 90 days #90 tabs 02/18/23 irbesartan 300 mg tablet 300 mg PO DAILY 90 days #90 tabs 03/12/23 Allergies Allergy/AdvReac Type Severity Reaction Status Date / Time aspirin Allergy Severe angioedema Verified 02/08/23 10:04 Review of Systems Review of Systems: Yes Unobtainable due to mental condition and Unobtainable due to mental status [facility] Past Medical History Medical History Benign essential hypertension Carotid artery stenosis Difficulty walking Dysphagia Elevated CPK Impaired fasting glucose Overweight (BMI 25.0-29.9) Parkinson's Disease Pure hypercholesterolemia Seizure TIA (transient ischemic attack) Tremor Surgical History History of right-sided carotid endarterectomy Family History Family History Father No problems noted. Mother HTN (hypertension) Social History Social History Household Members: None Household Members Other:: Caregiver 18 hours per day Housing: Assisted Living Facility Are you a primary transitional care nurse to a significant other at home: No Do you presently have visiting nurse or other home services: Yes Alcohol intake: never Patient Tobacco Use Status: Never used Tobacco e-Cigarette/Vaping Use: Never Used Second Hand Smoke Exposure: No Advance Directives: No Advance Directives Information Provided: Yes service: No Current occupational status: retired Cognitive needs: Yes Hearing needs: Yes Vision needs: Yes Physical Exam ED Vital Signs: Vital Signs - 24 hr 04/23/23 14:33 04/23/23 17:20 Temperature 97.8 F Pulse Rate 67 76 Respiratory Rate 16 16 Blood Pressure 154/70 H 179/79 H Pulse Oximetry 97 Oxygen Delivery Method Room Air BMI result Body Mass Index 25.9 GEN: Well developed, no acute distress, alert HEENT: Normocephalic, atraumatic, normal external ears, nose appears normal, no oropharyngeal edema or exudates Eyes: Normal to appearance Neck: Supple, no lymphadenopathy Respiratory: Talks in complete sentences, no respiratory distress, clear to auscultation bilaterally Cardiovascular: Regular rate and rhythm, no murmurs rubs or gallops Abdomen: Soft, nontender, nondistended, no guarding, no rebound Back: No CVA tenderness Extremities: No clubbing cyanosis or edema Neurologic: No focal neurologic deficits, cranial nerves 2-12 intact, strength is 5/5 bilaterally Skin: No rash Course Reevaluation(s) Reevaluation #1: 87-year-old female who was signed out to me to follow-up on lab work, patient suffered an almost fall early air without trauma as she was caught by staff member an gently lowered to the ground. There were some concerns about incontinence. I reviewed all laboratory investigations and hematologic indices appear to be grossly within chronic limits although there is a left shift of uncertain significance there is no leukocytosis and patient is afebrile. Chemistry indices appear to be chronically stable and without evidence of MIGUEL or liver derangements or electrolyte derangements. Urinalysis is negative for UTI or hematuria. Patient is otherwise hemodynamically stable for discharge back to the facility. Time: 17:26 Medical Decision Making Medical Decision Making [facility] Narrative: 87-year-old female presents for an accidental fall. There is no trauma. She did not lose consciousness. Patient has no complaints herself. No focal neurologic deficits on exam. There is no obvious trauma on exam. Will plan to obtain labs to rule out electrolyte abnormality, UTI, anemia, kidney dysfunction, liver dysfunction to determine appropriate disposition. Differential diagnosis includes dehydration, UTI, electrolyte abnormality, hypoglycemia, hyperglycemia, anemia, leukocytosis. Differential Diagnosis Differential Diagnoses: The differential diagnosis associated with the presentation includes (See above) Admission/Observation Consideration of admission/observation: Escalation of care including admission/observation considered Lab Data [facility] Lab Attestation statement: I reviewed the patient's lab results. 04/23/23 16:47 04/23/23 16:47 Labs: Lab Results 04/23/23 04/23/23 04/23/23 Range/Units 14:59 16:47 16:47 WBC 10.7 (4.8-10.8) X10*3/uL RBC 4.00 L (4.20-5.50) X10*6/uL Hgb 12.5 (12.0-16.0) g/dl Hct 39.4 (37.0-47.0) % MCV 98.5 H (80.0-98.0) fL MCH 31.3 (27.0-33.0) pg MCHC 31.7 (31.0-35.0) g/dl RDW 13.7 (11.0-16.0) % Plt Count 158 L (160-400) X10*3/uL MPV 11.2 (9.4-12.3) fL Immature Gran % (Auto) 0.4 (0.0-0.4) % Neut % (Auto) 84.7 H (45-73) % Lymph % (Auto) 9.0 L (20-40) % [place] % (Auto) 5.2 (2-11) % Eos % (Auto) 0.5 (0-4) % Baso % (Auto) 0.2 (0-2) % Lymph # (Auto) 1.0 L (1.2-4.9) X10*3/uL [place] # (Auto) 0.6 (0.1-1.2) X10*3/uL Eos # (Auto) 0.1 (0.0-0.4) X10*3/uL Baso # (Auto) 0.0 (0.0-0.2) X10*3/uL Abs Immat Gran (auto) 0.04 H (0.00-0.03) X10*3/uL Absolute Neuts (auto) 9.1 H (2.0-8.3) x10*3/uL Absolute Nucleated RBC 0.000 (0.0-0.012) X10*3/uL Nucleated RBC % (auto) 0.0 (0.0-0.2) /100WBC Sodium 142 (135-145) mmol/L Potassium 3.4 (3.3-5.1) mmol/L Chloride 110 H (96-108) mmol/L Carbon Dioxide 24 (22-29) mmol/L Anion Gap 11 L (12-20) BUN 13 (9-16) mg/dL Creatinine 0.61 (0.5-1.4) mg/dL Estim Creat Clear Calc 57.2 Estimated GFR > 60 Random Glucose 111 (60-115) mg/dL Calcium 9.2 (8.4-10.2) mg/dL Total Bilirubin 0.5 (0.0-1.0) mg/dL AST 14 (5-31) U/L ALT 5 (0-31) U/L Alkaline Phosphatase 90 (39-117) U/L Total Protein 6.2 L (6.5-8.0) g/dL Albumin 3.7 (3.5-5.0) g/dL Urine Color Dark Yellow Urine Appearance Cloudy Urine pH 6.0 (5.0-9.0) Ur Specific [place] 1.025 (1.005-1.025) Urine Protein 300 (3+) H (Neg-Trace) mg/dL Urine Glucose (UA) Negative (Negative) mg/dL Urine Ketones Trace (Negative) mg/dL Urine Blood Negative (Negative) Urine Nitrite Negative (Negative) Ur Leukocyte Esterase Negative (Negative) Urine RBC 0-2 (0-2) /HPF Urine WBC 0-5 (0-5) /HPF Ur Squamous Epith Cells 3-5 (0-2) /HPF Urine Bacteria Trace (None Seen) Hyaline Casts 6-10 (0-2) /LPF Independent Interpretation I performed an independent interpretation of an: EKG (Normal sinus rhythm heart rate 77, LVH, nonspecific ST T-wave changes, no acute ST elevations or depressions) Independent Historian Clinical information obtained from an independent historian. History obtained from or confirmed by: EMS External Record Review External record reviewed: Inpatient record, Office record and Outpatient record Prescription Management I considered prescription management with: Pain Medication and Antibiotic Chronic Conditions Patient?s care impacted by: Other (Dementia) Discharge Plan Discharge Clinical Impression: Accidental fall Patient Disposition: Xfer SNF Instructions: Fall Prevention (ED) Additional Instructions: 1. Resume all home medications as prescribed. 2. Follow-up with your primary care provider. Return to the ER for any worsening symptoms. Prescriptions: No Action hydralazine 10 mg tablet 10 mg PO BID 90 Days Qty: 180 1RF famotidine 20 mg tablet 20 mg PO DAILY Qty: 90 1RF atorvastatin 40 mg tablet 40 mg PO BEDTIME 90 Days Qty: 90 1RF felodipine 5 mg tablet extended release 24 hr 5 mg PO DAILY 90 Days Qty: 90 1RF clopidogrel 75 mg tablet 75 mg PO DAILY 90 Days Qty: 90 1RF irbesartan 300 mg tablet 300 mg PO DAILY 90 Days Qty: 90 1RF cephalexin 500 mg capsule 500 mg PO BID 3 Days Qty: 6 0RF carbidopa-levodopa 50-200 mg tablet extended release 1 tab PO BID acetaminophen [Tylenol Extra Strength] 500 mg tablet 500 mg PO BID carbidopa-levodopa 25-100 mg tablet 1 tab PO TID levetiracetam 250 mg tablet 250 mg PO BEDTIME docusate sodium [Colace] 100 mg capsule 100 mg PO BID ascorbate calcium (vitamin C) 500 mg tablet 500 mg PO DAILY PreserVision AREDS [id number],320-226-200 [id number] capsule 1 cap PO DAILY Referrals: Physician,Unknown J [Primary Care Provider] -
[2023-04-23 15:09] LABS: Appearance Urine Cloudy; Color Urine Dark Yellow; Glucose Urine UA Negative (Negative); Leukocyte Esterase Urine Negative (Negative); Nitrite Urine Negative (Negative); Specific Gravity - Urine 1.025 (1.005-1.025); UMIC TRIGGER UACC YES; Urine Blood Negative (Negative); Urine Ketones Trace mg/dL (Negative); Urine Protein 300 (3+) mg/dL (Neg-Trace)
[2023-04-23 15:29] LABS: Bacteria Urine Trace (None Seen); RBC Urine 0-2 /HPF (0-2); WBC Urine 0-5 /HPF (0-5)
--- NOTE | 2023-04-23 16:20 | PC.NURSE ---
patient resting in bed, calm and cooperative. patient has baseline dementia, a&o to self and situation.
[2023-04-23 16:52] LABS: MANUAL DIFF FLAG NO
[2023-04-23 16:55] LABS: Basophils Percent Auto 0.2 % (0-2); Eosinophils Absolute Auto 0.1 X10*3/uL (0.0-0.4); Eosinophils Percent Auto 0.5 % (0-4); Hematocrit 39.4 % (37.0-47.0); Hemoglobin 12.5 g/dl (12.0-16.0); Imm Gran Abs Auto 0.04 X10*3/uL (0.00-0.03); Imm Gran Pct Auto 0.4 % (0.0-0.4); Mean Corpuscular HGB Conc 31.7 g/dl (31.0-35.0); Mean Corpuscular Hemoglobin 31.3 pg (27.0-33.0); Mean Corpuscular Volume 98.5 fL (80.0-98.0); Mean Platelet Volume 11.2 fL (9.4-12.3); Monocytes Absolute Auto 0.6 X10*3/uL (0.1-1.2); Monocytes Percent Auto 5.2 % (2-11); Neutrophils Absolute Auto 9.1 x10*3/uL (2.0-8.3); Neutrophils Percent Auto 84.7 % (45-73); Platelet Count 158 X10*3/uL (160-400); Red Cell Distribution Width 13.7 % (11.0-16.0); White Blood Count 10.7 X10*3/uL (4.8-10.8)
--- NOTE | 2023-04-23 17:00 | PC.NURSE ---
patient lab work and urine needed for work up, verified with provider that straight cath was needed, order was placed for straight cath. additional staff needed to keep patients letgs in place for straight cath procedure. urine culture and sensitivity collected and sent. patient was then readjusted in bed and resting
[2023-04-23 17:15] LABS: Alanine Aminotransferase 5 U/L (0-31); Albumin Level 3.7 g/dL (3.5-5.0); Alkaline Phosphatase 90 U/L (39-117); Anion Gap 11 (12-20); Aspartate Amino Transferase 14 U/L (5-31); Bilirubin Total 0.5 mg/dL (0.0-1.0); Blood Urea Nitrogen 13 mg/dL (9-16); Calcium 9.2 mg/dL (8.4-10.2); Carbon Dioxide 24 mmol/L (22-29); Chloride 110 mmol/L (96-108); Creatinine Clr Calc Pharmacy 57.2; Estimated Glomerular Filt Rate > 60; Glucose Random 111 mg/dL (60-115); Potassium 3.4 mmol/L (3.3-5.1); Sodium 142 mmol/L (135-145); Total Protein 6.2 g/dL (6.5-8.0)
[2023-04-23 17:20] VITALS: BP 179/79; PULSE 76; RESP 16
--- NOTE | 2023-04-23 19:01 | PC.NURSE ---
patient to be discharged home, lab work unremarkable. called patient child care centre director jacki [phone] to speak about d/c home to her career development counselor. Jacki called back and verified patient staff is at her apartment awaiting her arrival via ambulance
== END 2023-04-23 22:29 | disposition skilled nursing facility (03) ==
PROVIDERS: Emergency Provider Emergency Medicine
DX: R41.82 Altered mental status, unspecified (principal); Z91.81 History of falling; I10 Essential (primary) hypertension; G20 Parkinson's disease; Z86.73 Personal history of transient ischemic attack (TIA), and cerebral infarction without residual deficits; Z79.899 Other long term (current) drug therapy
CPT/HCPCS: 36415; 80053; 81001; 85025; 93005; 99283; 99284

== ENCOUNTER → 2023-04-23 14:33 | Outpatient (BNV) | payer MEDICARE, OTHER, SELFPAY | PROVIDERS: Emergency Provider Emergency Medicine; Visit Provider Internal Medicine Cardiovascular Disease | DX: R07.9 Chest pain, unspecified (principal) | CPT/HCPCS: 93010 ==

== ENCOUNTER 2023-05-08 13:33 | Emergency (ER) | payer MEDICARE, OTHER, SELFPAY ==
--- NOTE | ~2023-05-08 | XR_ITS ---
EXAMINATION: XR CHEST CLINICAL INFORMATION: Vomiting. COMPARISON: 02/14/2022 chest radiograph. TECHNIQUE: Frontal view of the chest was obtained. FINDINGS: No significant abnormality is noted involving the heart, lungs, mediastinum, bony thorax or soft tissues. XR/XR chest 1V IMPRESSION: No acute cardiopulmonary process.
[2023-05-08 13:49] VITALS: BP 180/82; BP 192/81; PULSE 75; PULSE 78; RESP 18; TEMP 37.3; O2SAT 96; BMI 23.8
--- NOTE | 2023-05-08 13:57 | ECG_ITS ---
Test Reason : AMS Blood Pressure : / mmHG Vent. Rate : 073 BPM Atrial Rate : 073 BPM P-R Int : 134 ms QRS Dur : 092 ms QT Int : 410 ms P-R-T Axes : 035 -24 045 degrees QTc Int : 451 ms Normal sinus rhythm Left ventricular hypertrophy with repolarization abnormality ( R in aVL , Jose product ) Abnormal ECG When compared with ECG of 23-APR-2023 14:44, Premature atrial complexes are no longer Present Nonspecific T wave abnormality no longer evident in Lateral leads Referred By: João Roland Electronically Signed By:Jaime Rangel
--- NOTE | 2023-05-08 13:58 | PC.NURSE ---
pt a&o to self and place only. pt verbalizing that the year is 2002. vss aside from hypertension. nsr on the cardiac monitor technician. pt currently calling this nurse doctor and that she doesn't want surgery. pt repeatedly saying no surgery over and over again. pt does not know who called ems and why she's here. pt also telling this nurse to go and kiss her son in the waiting room. pt verbalizing that she has pain but she doesn't know where and how much it hurts. tech in room performing ekg.
--- NOTE | 2023-05-08 13:59 | ED.GENADULT ---
HPI - General Adult General Chief complaint: Altered Mental Status Stated complaint: N/V, WEAKNESS, CONFUSION Time Seen by Provider: 05/08/23 13:43 Source: patient and EMS Mode of arrival: EMS Limitations: no limitations History of Present Illness HPI narrative: 87-year-old female history of dementia, seizure disorder, Parkinson's disease, and Alzheimer disease came from assisted living for evaluation of nausea, vomiting, confusion and change mental status. Related Data Home Medications Medication Instructions Recorded Confirmed acetaminophen 500 mg tablet 500 mg PO BID 01/05/21 02/08/23 (Tylenol Extra Strength) ascorbate calcium (vitamin C) 500 500 mg PO DAILY 02/01/21 02/08/23 mg tablet docusate sodium 100 mg capsule 100 mg PO BID 02/01/21 02/08/23 (Colace) vitamins A,C,M-kaqh-qgitpr 4,296 1 cap PO DAILY 02/01/21 02/08/23 mcg-226 mg-90 mg capsule (PreserVision AREDS) carbidopa 25 mg-levodopa 100 mg 1 tab PO TID 04/08/21 02/08/23 tablet carbidopa ER 50 mg-levodopa 200 mg 1 tab PO BID 08/09/21 02/08/23 tablet,extended release levetiracetam 250 mg tablet 250 mg PO BEDTIME 10/03/22 02/08/23 Previous Rx's Medication Instructions Recorded atorvastatin 40 mg tablet 40 mg PO BEDTIME 90 days #90 tabs 01/20/23 famotidine 20 mg tablet 20 mg PO DAILY #90 tabs 01/20/23 felodipine 5 mg tablet,extended 5 mg PO DAILY 90 days #90 tabs 01/20/23 release 24 hr cephalexin 500 mg capsule 500 mg PO BID 3 days #6 caps 02/14/23 clopidogrel 75 mg tablet 75 mg PO DAILY 90 days #90 tabs 02/18/23 irbesartan 300 mg tablet 300 mg PO DAILY 90 days #90 tabs 03/12/23 hydralazine 10 mg tablet 10 mg PO BID 90 days #180 tabs 05/02/23 Allergies Allergy/AdvReac Type Severity Reaction Status Date / Time aspirin Allergy Severe angioedema Verified 05/08/23 13:48 Review of Systems Review of Systems: All other systems are reviewed and are negative Constitutional: Reports as per HPI and Reports no additional constitutional complaints Eyes: Reports as per HPI and Reports no additional eye complaints Reports system reviewed and no additional complaints, except as documented Cardiovascular: Reports as per HPI and Reports no additional cardiovascular complaints Respiratory: Reports as per HPI and Reports no additional respiratory complaints Gastrointestinal: Reports as per HPI and Reports no additional gastrointestinal complaints Genitourinary: Reports no additional female genitourinary complaints Musculoskeletal: Reports no additional musculoskeletal complaints Skin/Breast: Reports system reviewed and no additional complaints, except as docu Psychiatric: Reports no additional psychiatric complaints Endocrine: Reports no additional endocrine complaints Hematologic/Lymphatic: Reports no additional hematologic/lymphatic complaints Allergic/Immunologic: Reports no additional allergic/immunologic complaints Reports system reviewed and no additional complaints, except as documented and Reports Abnormal speech present [facility] Past Medical History Medical History Benign essential hypertension Carotid artery stenosis Difficulty walking Dysphagia Elevated CPK Impaired fasting glucose Overweight (BMI 25.0-29.9) Parkinson's Disease Pure hypercholesterolemia Seizure TIA (transient ischemic attack) Tremor Surgical History History of right-sided carotid endarterectomy Family History Family History Father No problems noted. Mother HTN (hypertension) Social History Social History Household Members: None Household Members Other:: Caregiver 18 hours per day Caregiver staying overnight: No Housing: Assisted Living Facility Are you a primary field care coordinator to a significant other at home: No Do you presently have visiting nurse or other home services: Yes 75 years or older and lives alone: Yes Alcohol intake: current Alcohol intake frequency: a few times a week Patient Tobacco Use Status: Never used Tobacco e-Cigarette/Vaping Use: Never Used Second Hand Smoke Exposure: No service: No Current occupational status: retired Cognitive needs: Yes Hearing needs: Yes Vision needs: Yes Physical Exam ED Vital Signs: Vital Signs - 24 hr 05/08/23 13:49 05/08/23 15:17 Temperature 99.1 F Pulse Rate 78 69 Respiratory Rate 18 16 Blood Pressure 192/81 H 195/80 H Pulse Oximetry 96 96 Oxygen Delivery Method Room Air Room Air BMI result Body Mass Index 23.8 Vital signs have been reviewed as appeared to be correct. Blood pressure normal. Heart rate normal. Respiration rate normal. Temperature normal. Oxygen saturation normal. Appearance: Alert. Oriented X2 (person and place). No acute distress. Head: Normal external exam. Normocephalic. Atraumatic. No Garcia signs noted. No raccoon eyes noted Eyes: PERRLA. EOMI. Conjunctiva and sclera normal. Eyelids normal. ENT: TM's Normal. Pharynx normal. Uvula midline. Moist mucous membranes. No trismus noted. No drooling noted. No muffled voice noted. Neck: Normal inspection. Neck supple. FROM. No adenopathy. Thyroid Normal. No meningeal signs. No neck mass noted. CVS: Normal heart rate and rhythm. Heart sound normal. No murmurs noted. Pulses normal throughout. Respiratory: No respiratory distress. Painless inspiration. Breath sounds normal. No wheezes/rales/rhonchi noted. Chest nontender. No accessory muscle usage noted or decreased air movement noted. Abdomen: Soft and nontender. Bowel sounds normal in all 4 quadrants. No distention noted. No organomegaly noted. No visible injury noted. Back: No CVA tenderness. Full range of motion noted. Skin: Skin warm and dry. Normal skin color. Normal skin turgor. No rashes/lesions/lacerations noted. Extremities: No lower extremity edema. Extremities exhibit normal range of motion. Extremities nontender. Neuro: Oriented X 2. Cranial nerve exam: II-XII are grossly intact No motor deficit. No sensory deficit. Reflexes normal. Course Course Course Narrative: 87-year-old female came in for nausea and vomiting found to have non ST elevation IL with elevated troponin, I have spoken with HCP Marti at phone number [phone]. I discussed that patient condition with her daughter would like her mom to be STORE SALES MANAGER with hospice care involved, case management was consulted to arrange for hospice care. Will keep the patient in the emergency department for comfort measure only. Medications Administered Discontinued Medications Generic Name Dose Route Start Last Admin Trade Name Freq PRN Reason Stop Dose Admin Sodium Chloride 1,000 mls @ 999 mls/hr 05/08/23 13:56 05/08/23 14:05 Ns IV 05/08/23 14:56 999 mls/hr .Q1H1M ONE Administration Ondansetron HCl 4 mg 05/08/23 13:56 05/08/23 14:05 Ondansetron Hcl 4 Mg/2 Ml Vial IVPUSH 05/08/23 13:57 4 mg ONCE ONE Administration Medical Decision Making Differential Diagnosis Differential Diagnoses: The differential diagnosis associated with the presentation includes (Non ST-elevation IL, UTI, electrolyte abnormalities, severe anemia, pneumonia, pneumothorax.) Admission/Observation Consideration of admission/observation: Escalation of care including admission/observation considered Lab Data MDM Lab Attestation statement: I reviewed the patient's lab results. 05/08/23 14:19 05/08/23 14:19 Labs: Lab Results 05/08/23 05/08/23 05/08/23 Range/Units 14:19 14:19 14:19 WBC 15.0 H (4.8-10.8) X10*3/uL RBC 4.08 L (4.20-5.50) X10*6/uL Hgb 12.8 (12.0-16.0) g/dl Hct 40.1 (37.0-47.0) % MCV 98.3 H (80.0-98.0) fL MCH 31.4 (27.0-33.0) pg MCHC 31.9 (31.0-35.0) g/dl RDW 13.8 (11.0-16.0) % Plt Count 182 (160-400) X10*3/uL MPV 10.9 (9.4-12.3) fL Immature Gran % (Auto) 0.4 (0.0-0.4) % Neut % (Auto) 86.8 H (45-73) % Lymph % (Auto) 7.1 L (20-40) % Bertie % (Auto) 5.5 (2-11) % Eos % (Auto) 0.0 (0-4) % Baso % (Auto) 0.2 (0-2) % Lymph # (Auto) 1.1 L (1.2-4.9) X10*3/uL [place]ie # (Auto) 0.8 (0.1-1.2) X10*3/uL Eos # (Auto) 0.0 (0.0-0.4) X10*3/uL Baso # (Auto) 0.0 (0.0-0.2) X10*3/uL Abs Immat Gran (auto) 0.06 H (0.00-0.03) X10*3/uL Absolute Neuts (auto) 13.1 H (2.0-8.3) x10*3/uL Absolute Nucleated RBC 0.000 (0.0-0.012) X10*3/uL Nucleated RBC % (auto) 0.0 (0.0-0.2) /100WBC Sodium 149 H (135-145) mmol/L Potassium 3.5 (3.3-5.1) mmol/L Chloride 110 H (96-108) mmol/L Carbon Dioxide 29 (22-29) mmol/L Anion Gap 14 (12-20) BUN 28 H (9-16) mg/dL Creatinine 0.78 (0.5-1.4) mg/dL Estim Creat Clear Calc 40.1 Estimated GFR > 60 Random Glucose 120 H (60-115) mg/dL Calcium 9.6 (8.4-10.2) mg/dL Total Bilirubin 0.8 (0.0-1.0) mg/dL Direct Bilirubin 0.4 (0.0-0.5) mg/dL AST 15 (5-31) U/L ALT 6 (0-31) U/L Alkaline Phosphatase 106 (39-117) U/L Troponin I High Sens 663.7 H* (<3.5-17.0) ng/L B-Natriuretic Peptide (<100) pg/mL Total Protein 6.9 (6.5-8.0) g/dL Albumin 3.9 (3.5-5.0) g/dL Lipase 8 (8-78) U/L Urine Color Urine Appearance Urine pH (5.0-9.0) Ur Specific [place] (1.005-1.025) Urine Protein (Neg-Trace) mg/dL Urine Glucose (UA) (Negative) mg/dL Urine Ketones (Negative) mg/dL Urine Blood (Negative) Urine Nitrite (Negative) Ur Leukocyte Esterase (Negative) 05/08/23 05/08/23 Range/Units 14:19 15:08 WBC (4.8-10.8) X10*3/uL RBC (4.20-5.50) X10*6/uL Hgb (12.0-16.0) g/dl Hct (37.0-47.0) % MCV (80.0-98.0) fL MCH (27.0-33.0) pg MCHC (31.0-35.0) g/dl RDW (11.0-16.0) % Plt Count (160-400) X10*3/uL MPV (9.4-12.3) fL Immature Gran % (Auto) (0.0-0.4) % Neut % (Auto) (45-73) % Lymph % (Auto) (20-40) % [place] % (Auto) (2-11) % Eos % (Auto) (0-4) % Baso % (Auto) (0-2) % Lymph # (Auto) (1.2-4.9) X10*3/uL [place] # (Auto) (0.1-1.2) X10*3/uL Eos # (Auto) (0.0-0.4) X10*3/uL Baso # (Auto) (0.0-0.2) X10*3/uL Abs Immat Gran (auto) (0.00-0.03) X10*3/uL Absolute Neuts (auto) (2.0-8.3) x10*3/uL Absolute Nucleated RBC (0.0-0.012) X10*3/uL Nucleated RBC % (auto) (0.0-0.2) /100WBC Sodium (135-145) mmol/L Potassium (3.3-5.1) mmol/L Chloride (96-108) mmol/L Carbon Dioxide (22-29) mmol/L Anion Gap (12-20) BUN (9-16) mg/dL Creatinine (0.5-1.4) mg/dL Estim Creat Clear Calc Estimated GFR Random Glucose (60-115) mg/dL Calcium (8.4-10.2) mg/dL Total Bilirubin (0.0-1.0) mg/dL Direct Bilirubin (0.0-0.5) mg/dL AST (5-31) U/L ALT (0-31) U/L Alkaline Phosphatase (39-117) U/L Troponin I High Sens (<3.5-17.0) ng/L B-Natriuretic Peptide 142 H (<100) pg/mL Total Protein (6.5-8.0) g/dL Albumin (3.5-5.0) g/dL Lipase (8-78) U/L Urine Color Dark Yellow Urine Appearance Clear Urine pH 5.5 (5.0-9.0) Ur Specific [place] >= 1.030 H (1.005-1.025) Urine Protein 300 (3+) H (Neg-Trace) mg/dL Urine Glucose (UA) Negative (Negative) mg/dL Urine Ketones 40 (Negative) mg/dL Urine Blood Negative (Negative) Urine Nitrite Negative (Negative) Ur Leukocyte Esterase Small (1+) H (Negative) Independent Interpretation I performed an independent interpretation of an: EKG (Normal sinus rhythm at 73 beats per minute, LVH, left axis deviation, normal intervals, no ST-T changes.) and Plain X-Ray (Chest: No acute intrathoracic pathology.) Radiology Impression Discussion of test interpretation with radiology: I have reviewed the radiologist's reading. Discharge Plan Discharge Clinical Impression: Non-ST elevated myocardial infarction (non-STEMI), Comfort measures only status Patient Disposition: Still a Patient Prescriptions: No Action famotidine 20 mg tablet 20 mg PO DAILY Qty: 90 1RF atorvastatin 40 mg tablet 40 mg PO BEDTIME 90 Days Qty: 90 1RF felodipine 5 mg tablet extended release 24 hr 5 mg PO DAILY 90 Days Qty: 90 1RF clopidogrel 75 mg tablet 75 mg PO DAILY 90 Days Qty: 90 1RF irbesartan 300 mg tablet 300 mg PO DAILY 90 Days Qty: 90 1RF hydralazine 10 mg tablet 10 mg PO BID 90 Days Qty: 180 1RF cephalexin 500 mg capsule 500 mg PO BID 3 Days Qty: 6 0RF carbidopa-levodopa 50-200 mg tablet extended release 1 tab PO BID acetaminophen [Tylenol Extra Strength] 500 mg tablet 500 mg PO BID carbidopa-levodopa 25-100 mg tablet 1 tab PO TID levetiracetam 250 mg tablet 250 mg PO BEDTIME docusate sodium [Colace] 100 mg capsule 100 mg PO BID ascorbate calcium (vitamin C) 500 mg tablet 500 mg PO DAILY PreserVision AREDS [id number] nejh-ne-ocuf capsule 1 cap PO DAILY
[2023-05-08] MEDS: 0.9 % Sodium Chloride 1,000 ML 999 ML IV (14:05)
[2023-05-08] MEDS: ondansetron HCL 4 MG/2 ML VIAL IVPUSH (14:05)
--- NOTE | 2023-05-08 14:08 | PC.NURSE ---
medication administered per provider order.
[2023-05-08 14:23] LABS: MANUAL DIFF FLAG NO
[2023-05-08 14:24] LABS: Basophils Percent Auto 0.2 % (0-2); Hematocrit 40.1 % (37.0-47.0); Hemoglobin 12.8 g/dl (12.0-16.0); Imm Gran Abs Auto 0.06 X10*3/uL (0.00-0.03); Imm Gran Pct Auto 0.4 % (0.0-0.4); Lymphocytes Absolute Auto 1.1 X10*3/uL (1.2-4.9); Lymphocytes Percent Auto 7.1 % (20-40); Mean Corpuscular HGB Conc 31.9 g/dl (31.0-35.0); Mean Corpuscular Hemoglobin 31.4 pg (27.0-33.0); Mean Corpuscular Volume 98.3 fL (80.0-98.0); Mean Platelet Volume 10.9 fL (9.4-12.3); Monocytes Absolute Auto 0.8 X10*3/uL (0.1-1.2); Monocytes Percent Auto 5.5 % (2-11); Neutrophils Absolute Auto 13.1 x10*3/uL (2.0-8.3); Neutrophils Percent Auto 86.8 % (45-73); Platelet Count 182 X10*3/uL (160-400); Red Blood Count 4.08 X10*6/uL (4.20-5.50); Red Cell Distribution Width 13.8 % (11.0-16.0)
--- NOTE | 2023-05-08 14:26 | PC.NURSE ---
tech in room drawing labs.
[2023-05-08 14:54] LABS: Alanine Aminotransferase 6 U/L (0-31); Albumin Level 3.9 g/dL (3.5-5.0); Alkaline Phosphatase 106 U/L (39-117); Anion Gap 14 (12-20); Aspartate Amino Transferase 15 U/L (5-31); Bilirubin Direct 0.4 mg/dL (0.0-0.5); Bilirubin Total 0.8 mg/dL (0.0-1.0); Blood Urea Nitrogen 28 mg/dL (9-16); Calcium 9.6 mg/dL (8.4-10.2); Carbon Dioxide 29 mmol/L (22-29); Chloride 110 mmol/L (96-108); Creatinine Clr Calc Pharmacy 40.1; Estimated Glomerular Filt Rate > 60; Glucose Random 120 mg/dL (60-115); Lipase 8 U/L (8-78); Potassium 3.5 mmol/L (3.3-5.1); Sodium 149 mmol/L (135-145); Total Protein 6.9 g/dL (6.5-8.0)
[2023-05-08 15:01] LABS: Troponin-I High Sensitivity 663.7 ng/L (<3.5-17.0)
[2023-05-08 15:09] LABS: B Type Natriuretic Peptide 142 pg/mL (<100)
--- NOTE | 2023-05-08 15:13 | PC.NURSE ---
straight cath performed - pt tolerated well. 300ml of dark doretha urine post catheterization. urine sample obtained and sent to lab.
[2023-05-08 15:16] LABS: Appearance Urine Clear; Color Urine Dark Yellow; Glucose Urine UA Negative (Negative); Leukocyte Esterase Urine Small (1+) (Negative); Nitrite Urine Negative (Negative); PH 5.5 (5.0-9.0); Specific Gravity - Urine >= 1.030 (1.005-1.025); UMIC TRIGGER UACC YES; Urine Blood Negative (Negative); Urine Ketones 40 mg/dL (Negative); Urine Protein 300 (3+) mg/dL (Neg-Trace)
[2023-05-08 15:17] VITALS: BP 195/80; PULSE 69; RESP 16; O2SAT 96
--- NOTE | 2023-05-08 15:53 | MHC.CM.ED ---
Received case management consult from Dr Roland. Patient lives at home with 24/7 care. Patient came to the ER due nausea/vomiting. Found to have NSTEMI. Per Dr Roland, patient's daughter, Marti is not interested in treatment and is interested hospice. Spoke with patient's daughter, Marti, via telephone at [phone]. Marti lives in [place], [place]. Marti requests patient stay in the ER overnight. Patient does have 24/7 care. However the agency will need to change care for hospice care. Keyanna will come to the ER tonight after her gets home so he can safely drive her here. Referral made to [facility]. They will contact Marti tomorrow so that hospice care can be arranged at home. Marti aware and agreeable to this. Dr Roland aware. Continue to monitor for d/c needs.
[2023-05-08 17:02] LABS: Bacteria Urine 4+ (None Seen); RBC Urine 0-2 /HPF (0-2); UACC Culture Trigger YES; WBC Urine 21-50 /HPF (0-5)
--- NOTE | 2023-05-08 17:25 | PC.NURSE ---
Daughters number Marti- [phone]
[2023-05-08 18:21] LABS: Troponin-I High Sensitivity 758.6 ng/L (<3.5-17.0)
[2023-05-08 18:48] VITALS: BP 190/79; PULSE 66; RESP 16; TEMP 36.8; O2SAT 94
--- NOTE | 2023-05-08 19:33 | PC.NURSE ---
patients family needed additional information explained to them, pts daughter was tearful and wished to speak with a provider. This nurse spoke with Dr. Eastman and asked him if he could possibly explain things to the family now that they were here in person, he did so, daughter remained tearful however has a better understanding of things. She and her are leaving to go check into a local hotel and will return in the AM or sooner if needed.
--- NOTE | 2023-05-08 20:16 | PC.NURSE ---
pt now [employer]. d/c'd vital signs and classroom monitor per provider order. pt's pain level reassessed - pt verbalizing 0/10 pain. pt in no apparent distress or discomfort. pt repositioned with pillows provided on left side of body to promote more comfort. call ware placed within reach. bed alarm turned on. will continue to monitor.
--- NOTE | 2023-05-08 20:48 | MHC.EDTECH ---
PER NURSE NO VITALS ONLY REPOSITION PATIENT AT THIS TIME
--- NOTE | 2023-05-09 00:40 | PC.NURSE ---
verbal reported given to Perla INGRAM in overflow unit
--- NOTE | 2023-05-09 09:12 | PC.NURSE ---
Resumed care of patient this morning, hygiene care provided. Daughter at bedside at this time. All needs met.
[2023-05-09 10:20] VITALS: RESP 14
[2023-05-09] MEDS: Morphine Sulfate 2 MG/ML CARTRIDGE IVPUSH (10:20)
[2023-05-09] MEDS: ondansetron HCL 4 MG/2 ML VIAL IVPUSH (10:20)
--- NOTE | 2023-05-09 10:25 | PC.NURSE ---
Provider notified for zofran/pain/scope patch order, as pt is continuing to vomit and wincing. Daughter at bedside, plan to admit to hospice this afternoon.
--- NOTE | 2023-05-09 11:58 | MHC.CM.ED ---
Addendum entered by Katelin Villa 05/09/23 15:50: Marcia from [facility] will call all hospice meds into [facility] on [address] in [place]. DaughterMarti aware. The current plan of care is comfort measures only. Patient has eat/drink as requested for comfort. No dietary restrictions. Addendum entered by Katelin Villa 05/09/23 12:46: Hospice nurse bedside with patient and family. Equipment will be delivered at 430pm. Sebastian JIMENEZ booked for 430pm. Med nec with chart. Patient, family, Martha RN and Lu MESSINA aware. List of recommended hospice meds provided to Lu MESSINA. Original Note: Patient remains in ER overflow. [facility] referral already made. Waiting for hospice nurse to meet with patient, miki Kidd and Marti's at bedside. Anticipate patient will return home with 24/7 care once information meeting is completed. Continue to monitor for d/c needs.
[2023-05-09] MEDS: Scopolamine 1.5 MG PATCH.TD.3 EAR-BEHIND (12:21)
[2023-05-09 14:21] VITALS: RESP 12
[2023-05-09] MEDS: Morphine Sulfate 4 MG/ML CARTRIDGE IVPUSH (14:21)
[2023-05-09] MEDS: Acetaminophen Supp 650 MG SUPP.RECT PR (14:21)
[2023-05-09 14:58] VITALS: RESP 14
== END 2023-05-09 18:26 | disposition home or self-care (01) ==
PROVIDERS: Emergency Provider Emergency Medicine; PCP Psychiatry & Neurology Neurology
DX: I21.4 Non-ST elevation (NSTEMI) myocardial infarction (principal); G20 Parkinson's disease; F02.818 Dementia in other diseases classified elsewhere, unspecified severity, with other behavioral disturbance; R41.82 Altered mental status, unspecified; R94.31 Abnormal electrocardiogram [ECG] [EKG]; R06.02 Shortness of breath; R11.2 Nausea with vomiting, unspecified; Z79.899 Other long term (current) drug therapy
CPT/HCPCS: 36415; 71045; 80048; 80076; 81001; 83690; 83880; 84484; 85025; 87086; 87088; 87186; 93005; 96361; 96374; 96375; 96376; 99284; 99285; J2270; J2405

== ENCOUNTER → 2023-05-08 13:57 | Outpatient (BNV) | payer MEDICARE, OTHER, SELFPAY | PROVIDERS: Emergency Provider Emergency Medicine; PCP Psychiatry & Neurology Neurology; Visit Provider Internal Medicine Cardiovascular Disease | DX: R94.31 Abnormal electrocardiogram [ECG] [EKG] (principal) | CPT/HCPCS: 93010 ==